=== PATIENT | female | born 1955 | race Caucasian/White ===

== ENCOUNTER 2018-06-10 13:41 | Inpatient (IN) | payer BC, OTHER ==
[2018-06-10] MEDS ORDERED: Ondansetron PF 4 MG/2 ML Vial ONE (14:12)
[2018-06-10] MEDS ORDERED: Morphine 4 MG/ML VIAL ONE ×3 (14:12→20:49)
[2018-06-10] MEDS ORDERED: Iopamidol 370 76% 100 ML VIAL ONE (14:36)
[2018-06-10 14:50] LABS: Hemoglobin 13.7 g/dL (12.0-16.0); Mean Corpuscular HGB CONC 33.1 g/dL (32.0-36.0); Mean Corpuscular Hemoglobin 27.8 pg (27.0-31.0); Mean Platelet Volume 10.1 fL (7.4-10.4); Platelet Count 196 thou/uL (130-400); RBC Distribution Width 12.4 % (11.5-14.5); Red Blood Cell (RBC) Count 4.92 mill/uL (4.20-5.40)
[2018-06-10 15:04] LABS: Band 39 % (5-11); Lymphocytes 1 % (21-51); MDiff Complete? YES; Metamyelocyte 7 % (0-0); Monocytes 4 % (0-10); Myelocyte 1 % (0-0); Neutrophil 48 % (42-75); Platelet Morphology Comment Appears Adequate; RBC Morphology Normal; Vacuoles SLIGHT
[2018-06-10 15:11] LABS: ALT (SGPT) 46 U/L (8-55); AST (SGOT) 34 U/L (5-34); Albumin 3.8 g/dL (3.4-4.8); Alkaline Phosphatase 64 U/L (40-150); Anion Gap 17 mmol/L (10-20); BUN (Urea Nitrogen) 18 mg/dL (9.8-20.1); Bilirubin, Total 1.3 mg/dL (0.2-1.2); CK (CPK) 25 U/L (29-168); Calc. Creatinine Clearance 0 mL/min (70-130); Calcium 9.4 mg/dL (7.8-10.44); Carbon Dioxide 22 mmol/L (23-31); Chloride 96 mmol/L (98-107); Estimated GFR-MDRD 48; Globulin 3.1 g/dL (2.4-3.5); Glucose 146 mg/dL (80-115); Lipase 7 U/L (8-78); Potassium 3.4 mmol/L (3.5-5.1); Protein, Total 6.9 g/dL (6.0-8.3); Sodium 132 mmol/L (136-145)
--- NOTE | 2018-06-10 16:43 | CT ---
CT ANGIOGRAM CHEST WITH IV CONTRAST AND 3D RECONSTRUCTIONS CT ANGIOGRAM ABDOMEN WITH IV CONTRAST AND 3D RECONSTRUCTIONS: Date: 06-10-18 History: Chest pain and pain extending to lower abdomen with pain radiating to the back. Patient repo rts low grade fever. History of strep throat. Comparison: None available. FINDINGS: Vascular calcifications are seen in the thoracic and abdominal aorta as well as the visualized iliac artery. However, the thoracic and abdominal aorta are normal in caliber without evidence of an aortic dissection. There is a normal arrangement of the great vessels at the aortic arch which are patent. The celiac and superior mesenteric arteries are patent. Vascular calcifications are seen in the origi n of the [place] which limits adequate evaluation. There is also atherosclerotic vascular calcifications at the origins of the single renal arteries bilaterally, likely resulting in mild narrowing of the or igin of each renal artery. There is a small left and tiny right pleural effusion with associated passive atelectasis. Calcified mediastinal and right hilar lymph nodes are present with calcified granuloma at the right lung base a nd multiple calcified granulomata seen in the liver. The heart is mildly enlarged. There is diminished attenuation of the liver suggesting diffuse fatty infiltrate. Post cholecystectom y changes are present. The pancreas, bilateral adrenal glands and left kidney demonstrate a normal CT appearance. There is a subcentimeter too small to characterize hypodense lesion right kidney. A small fat containing umbilical hernia is present. Scattered colonic diverticula are seen. IMPRESSION: 1. Atherosclerotic calcifications in the thoracic and abdominal aorta. The thoracic and abdominal aor ta are normal in caliber. 2. Small left and tiny right pleural effusions with associated passive atelectasis. 3. Cardiomegaly. 4. Fatty infiltration of the liver with evidence of hepatomegaly. The liver measures 23.6 cm in crani ocaudal dimensions. 5. Post cholecystectomy changes. 6. Colonic diverticulosis. 7. Fat containing umbilical hernia. POS: [facility]
[2018-06-10 16:53] LABS: INR-International Normal Ratio 1.1; PTT 27.5 SEC (22.9-36.1); Prothrombin Time 14.1 SEC (12.0-14.7)
[2018-06-10] MEDS ORDERED: Clindamycin/D5W 600 MG in Premix Bag 1 BAG IVPB SCH (18:06)
[2018-06-10] MEDS ORDERED: Potassium Chloride 20 MEQ TAB PO SCH (18:15)
[2018-06-10] MEDS ORDERED: [UNRECOGNIZED DRUG - OTHER] IVPB PRN (18:40)
[2018-06-10 19:07] LABS: Bilirubin Small (Negative); Blood, Urine Negative (Negative); Clarity CLEAR (Clear); Glucose, Urine (Dipstick) Negative (Negative); Leukocyte Trace (Negative); Nitrite Negative (Negative); Protein, Urine (Dipstick) Trace mg/dL (Neg-Trace); pH, Urine 5.5 (5.0-9.0)
[2018-06-10 19:09] LABS: Pathc Cast-AUWi Flag 1.16 (0-2.49); Specific Gravity, Urine Greater than 1.060 (1.002-1.036)
[2018-06-10 19:23] LABS: RBC/HPF 0-3 HPF (0-3)
[2018-06-10 19:24] LABS: Bacteria/HPF None Seen HPF (None Seen); Hyaline Casts/LPF NONE SEEN LPF (0-3 Hyaline); WBC/HPF 0-3 HPF (0-3)
[2018-06-10] MEDS ORDERED: Dexamethasone 4 mg/ml Vial SLOW IVP SCH (19:30)
[2018-06-10 20:43] LABS: Troponin I 0.011 ng/mL (< 0.028)
[2018-06-10] MEDS ORDERED: Meropenem 1 GM in Sodium Chloride 0.9% 100 ML IVPB SCH (22:00)
[2018-06-10] MEDS: Sodium Chloride 0.9% 1,000 ML IV SCH (22:16)
[2018-06-10] MEDS: Nystatin 500,000 UNITS/5 ML UDCUP SSW SCH (22:17)
[2018-06-10] MEDS: MEROPENEM 1 GM/50 ML 1 GM in Premix Bag 1 BAG IVPB SCH (22:19)
[2018-06-10] MEDS: traMADol HCl 50 MG TAB PO PRN (23:04)
[2018-06-10] MEDS: Clindamycin/D5W 600 MG in Premix Bag 1 BAG IVPB SCH (23:08)
--- NOTE | 2018-06-11 | HP ---
CHIEF COMPLAINT: Sore throat and left-sided chest pain. HISTORY OF PRESENT ILLNESS: The patient is a very pleasant 63-year-old female with past medical history of hypertension, hyperlipidemia, and borderline diabetic; who presented initially to the hospital with complaints of left-sided chest pain and left-sided abdominal pain and back pain. The patient stated that on , she started having scratchy throat. On Monday, she started having some difficulty swallowing. At this time, she went to the [facility] where she was put on some p.o. antibiotics and was discharged home. She then later on came back yesterday night for worsening difficulty swallowing and just not feeling well with a low-grade fever. At this time, she did have a CT neck, which I have the results for, indicated a nonspecific retropharyngeal edema/phlegmon, likely associated with underlying pharyngeal infection. No evidence of abscess formation and she did have some multiple shotty internal jugular chain lymph nodes visualized. The patient at this time also had a strep throat done which was positive. I do have the results for that. She had some leukocytosis, and she was discharged home, asked to continue the clindamycin. The patient returns to our ER today with worsening difficulty swallowing, also some left-sided chest pain, abdominal pain, and back pain. The patient denies any diarrhea or nausea or vomiting. The patient states that she normally has been drinking enough water, however, not been eating very much due to difficulty swallowing. PAST MEDICAL HISTORY: History of high cholesterol, hypertension. She has had high triglyceridemia and borderline diabetic. She also has sleep apnea and uses a CPAP machine. SOCIAL HISTORY: She denies any smoking history, secondhand smoking, alcohol use, drug use. She is a full code. Lives with her , who is at the bedside. SURGICAL HISTORY: She had a cholecystectomy, a tonsillectomy, and a right eye cataract surgery. REVIEW OF SYSTEMS: All negative except for the ones mentioned above in the HPI. FAMILY HISTORY: Mother had a stroke. Father of heart disease. Brother had an OH at the age of 50. ALLERGIES: THE PATIENT HAS ALLERGIES TO PENICILLIN. MEDICATIONS: She currently does not have a medication list. We will try and obtain her medication list. REVIEW OF SYSTEMS: All negative except for the ones mentioned above in HPI. PHYSICAL EXAMINATION: VITAL SIGNS: Temperature of 98.4. Sats are 92% on 2 L, respirations are 21, blood pressure 105/79, pulse of 105. GENERAL: She is awake, alert, and oriented x3. Appears ill. HEENT: Normocephalic, atraumatic. No lymphadenopathy noted in her cervical area. Her bilateral ear exam was normal. No pain on pushing her on the tragus or mastoid area. She did have significant erythema at the back of her throat with some mild oral thrush noted around her pharyngeal area. Visualization was very difficult given her very narrow space. CV: S1 and S2 present. No murmurs, rubs, or gallops. LUNGS: Clear upon auscultation. No rhonchi or wheezes noted. No stridor was noted. ABDOMEN: Bowel sounds are present x2. She does have pain upon palpation to her left upper quadrant and left lower quadrant. EXTREMITIES: No edema. Pedal pulses are present x2. NEUROVASCULAR: No focal deficits noted. SKIN: No cuts, lesions, or bruises noted. LABORATORY RESULTS: Are as of the following; she does have a leukocytosis of 13.0 with a bandemia of 39 and potassium of 3.4, sodium of 132, creatinine of 1.14, glucose of 146, bilirubin total of 1.3. Lipase was 77. CK was 25. BNP was 147. She did have troponins which were negative. She did have a CT to rule out a PE and dissection, which was essentially negative. It just indicated that she does have fatty infiltration of the liver and some hepatomegaly. She also has significant atherosclerotic calcification of the thoracic and the aortic abdominal aorta and mild cardiomegaly was also noted. She did have a urine, which did not indicate any UTI. ASSESSMENT AND PLAN: The patient is a very pleasant 63-year-old female, who presents to the hospital with complaints of chest pain and some dysphagia. 1. Possible retropharyngeal infection. I am not really sure why this lady has significant bandemia. On visual examination, she does have some erythema. Her strep test has been positive at [facility] and also she did have a CT neck with contrast which indicated nonspecific retropharyngeal edema/phlegmon, and she did have some lymph nodes that were visible. I will start her on some IV clindamycin and also meropenem given her penicillin allergy. I did speak with ENT given the fact that the patient is mildly hypoxic on 2 L. She does not have a history of smoking. She does have sleep apnea, and she has mild pleural effusion in her left lower lung area. I will start her on some steroids, also consult ENT in the morning. She has no stridor. Her lungs are clear. We will continue some humidified air and continue to monitor. 2. Leukocytosis with bandemia, most likely secondary to underlying infection. She has very elevated CRP of 24. We will continue antibiotics and steroids for now. 3. Mild acute kidney injury. Her creatinine at [place] [facility] [place] was essentially normal. We will start to hydrate her. 4. Sepsis. She meets sepsis criteria. We will continue to monitor. Continue IV hydration and continue the antibiotics. 5. Hypokalemia. We will replace her potassium. 6. She does have mild elevated BNP and also some cardiomegaly. We will get an echocardiogram. 7. Mild elevated bilirubin. She does have fatty liver. We will hold off on getting any further testing. The patient does have a history of high triglycerides and high cholesterol. 8. Deep venous thrombosis prophylaxis. We will put the patient on subcu heparin. Job ID: [id number]
[2018-06-11 00:55] LABS: Troponin I Less than 0.010 ng/mL (< 0.028)
[2018-06-11] MEDS: Sodium Chloride 0.9% 1,000 ML IV SCH (05:15)
[2018-06-11] MEDS: MEROPENEM 1 GM/50 ML 1 GM in Premix Bag 1 BAG IVPB SCH (05:16)
[2018-06-11 06:02] LABS: Band 30 % (5-11); Hemoglobin 13.6 g/dL (12.0-16.0); Lymphocytes 10 % (21-51); MDiff Complete? YES; Mean Corpuscular HGB CONC 32.3 g/dL (32.0-36.0); Mean Corpuscular Hemoglobin 28.1 pg (27.0-31.0); Mean Corpuscular Volume 87.1 fL (78.0-98.0); Mean Platelet Volume 10.1 fL (7.4-10.4); Metamyelocyte 2 % (0-0); Monocytes 4 % (0-10); Neutrophil 54 % (42-75); Platelet Count 209 thou/uL (130-400); Platelet Morphology Comment Appears Adequate; RBC Distribution Width 12.8 % (11.5-14.5); Red Blood Cell (RBC) Count 4.83 mill/uL (4.20-5.40)
[2018-06-11] MEDS: Clindamycin/D5W 600 MG in Premix Bag 1 BAG IVPB SCH ×2 (06:02→12:47)
[2018-06-11] MEDS: Dexamethasone 4 mg/ml Vial SLOW IVP SCH ×3 (06:03→21:29)
[2018-06-11 06:04] LABS: Anion Gap 21 mmol/L (10-20); BUN (Urea Nitrogen) 26 mg/dL (9.8-20.1); Calc. Creatinine Clearance 38 mL/min (70-130); Calcium 8.7 mg/dL (7.8-10.44); Carbon Dioxide 15 mmol/L (23-31); Chloride 102 mmol/L (98-107); Estimated GFR-MDRD 20; Glucose 146 mg/dL (80-115); Potassium 4.5 mmol/L (3.5-5.1); Sodium 133 mmol/L (136-145)
[2018-06-11] MEDS: Nystatin 500,000 UNITS/5 ML UDCUP SSW SCH ×4 (08:01→21:29)
[2018-06-11] MEDS: Morphine 4 MG/ML VIAL SLOW IVP PRN ×3 (08:01→21:38)
[2018-06-11 10:23] LABS: Actual Bicarbonate (HCO3a) 18.2 mEq/L (22-28); Analyzer IN Cardio OR; Base Excess (BEa) -10.6 mEq/L (-2.0 to +3.0); CO2 Tension 51.8 mmHg (35.0-45.0); Calcium, Ionized 1.08 mmol/L (1.12-1.30); Carboxyhemoglobin (COHb) 0.9 gm% (0.0-3.0); Hemoglobin (Hb) 14.2 g/dL (12.0-16.0); O2 Tension (PaO2) 74.8 mmHg (> 80.0); Potassium - ABG Lab 4.62 mmol/L (3.70-5.30)
--- NOTE | 2018-06-11 10:25 | RAD ---
CHEST 1 VIEW: HISTORY: Respiratory distress. COMPARISON: None. FINDINGS: Normal cardiac silhouette. Lung volumes are diminished, likely due to a poor inspiratory effort. Sm all bilateral effusions. Parenchymal changes in the left lung base obscure the left hemidiaphragm. No pneumothorax. IMPRESSION: Pleural and parenchymal changes in the left lung base. Continued surveillance is recommended. POS: [facility]
[2018-06-11 10:37] LABS: Puncture Site RRA; pH, Arterial 7.16 (7.35-7.45)
[2018-06-11] MEDS: Enoxaparin Sodium 40 MG/0.4 ML SYRINGE SC SCH (10:58)
[2018-06-11] MEDS ORDERED: Sodium Chloride 0.9% 1,000 ML IV SCH (12:15)
[2018-06-11] MEDS: Sodium Bicarbonate 70 MEQ in Sodium Chloride 0.45% 1,000 ML IV SCH ×2 (12:46→23:27)
--- NOTE | 2018-06-11 16:56 | CON ---
DATE OF CONSULTATION: 06/11/2018 REASON FOR CONSULTATION: Heart failure. HISTORY OF PRESENT ILLNESS: Ms. Benitez is a very pleasant 63-year-old white female, who comes to the hospital for left-sided chest pain. She was evaluated and was found to be septic. She has had this retropharyngeal infection recently without any significant abscess formation. She had a Streptococcus throat that was positive. She was admitted and placed on IV antibiotics, and blood cultures are positive for gram-negative rods. Because of the chest pain, Cardiology was consulted. Her echo was reviewed before seeing her and she has an EF of about 35% to 40% with dilated right-sided chambers, but it does not fit Emmanuel sign for PE, most likely just from a little bit of volume up on the right-sided chambers. She also had very small pleural effusions on chest x-ray, which correlate with an echocardiogram showing some pleural effusions as well. She had to be upgraded to BiPAP as she was working hard to breathe, probably from her acidosis. She is much more comfortable on a BiPAP and after some bicarbonate was given. PAST MEDICAL HISTORY: 1. Hyperlipidemia. 2. Hypertension. 3. Borderline diabetes. 4. Sleep apnea, using CPAP at night. SOCIAL HISTORY: No alcohol, tobacco, or drug use. PAST SURGICAL HISTORY: 1. Cholecystectomy. 2. Tonsillectomy. 3. Right eye cataract surgery. REVIEW OF SYSTEMS: A 12-point review of systems was done and was found to be negative unless stated in the history of present illness. FAMILY HISTORY: Mother with stroke. Father with heart disease. Brother with MD at age 50. OUTPATIENT MEDICATIONS: Include: 1. Metformin 1000 mg b.i.d. 2. Pantoprazole 40 mg a day. 3. Olmesartan/hydrochlorothiazide 20/12.5 day. 4. Singulair 10 mg at bedtime. 5. Flonase. 6. Trilipix 135 mg a day. 7. Clindamycin given recently. 8. Advil. 9. Azelastine nasal spray. 10. Atorvastatin 10 mg at bedtime. 11. Aspirin 81 a day. ALLERGIES: PENICILLIN. PHYSICAL EXAMINATION: VITAL SIGNS: Temperature 99.8 is the highest, currently 98.4; pulse 95; respiratory rate 18; saturating 98% on 50% FiO2 on a BiPAP; and blood pressure 96/64. GENERAL: Awake, alert, and oriented x3, in mild respiratory distress. HEENT: Normocephalic and atraumatic. NECK: Supple. LUNGS: Reduced breath sounds at the bilateral bases. CARDIOVASCULAR: S1 and S2. No S3 or S4. Heart rate in the upper 90s. ABDOMEN: Soft. Positive bowel sounds. EXTREMITIES: No edema. SKIN: Warm and dry. LABORATORY DATA: Reviewed. CBC with a white count of 13, down to 7.0; hemoglobin of 13.6; hematocrit 42; platelet count of 209. Coags were unremarkable. ABG was reviewed, pH was 7.1 with CO2 of 51. Chemistries, creatinine has gone from 1.1 to 2.4. Troponin was negative x2. CRP was 24. BNP was 147. UA; small bilirubin, 2.0 urobilinogen, trace leukocyte esterase, 4 to 6 squamous epithelial cells. IMAGING STUDIES: Chest x-ray was reviewed. CT dissection protocol was reviewed. ASSESSMENT: 1. Acute respiratory insufficiency, likely related to metabolic acidosis. 2. Metabolic acidosis. 3. Sepsis. 4. Gram-negative lashell bacteremia. 5. New onset LV dysfunction. EF at about 40%. PLAN: 1. I agree she looks to be volume down and needs IV fluids, judicious use of fluid secondary to reduced LV function. We discussed the case with Dr. Mata and we will plan on starting dobutamine to try to help her heart, give a little extra cardiac output. Hopefully, she will start urinating as she is currently not putting much out. 2. Continue supportive care for now. 3. The patient is severely ill. 4. We will follow. Job ID: [id number]
[2018-06-11] MEDS: cefTRIAXone\\ROCEPHIN 2 GM in Sodium Chloride 0.9% 100 ML IVPB SCH (17:26)
[2018-06-11] MEDS: DOBUTamine 500 mg/250 ml 250 ML IVPB SCH (17:27)
--- NOTE | 2018-06-11 17:39 | CON ---
DATE OF CONSULTATION: 06/11/2018 TIME SPENT: 45 minutes of critical care time. CONSULTING PHYSICIAN: Dr. Haines. REASON FOR CONSULTATION: Sepsis. HISTORY OF PRESENT ILLNESS: The patient is a 63-year-old female, who was admitted to the hospital on 06/10/2018 by the Hospitalist Service with a 3 to 4-day history of throat pain, which is evolved into left-sided chest pain, left side abdominal pain, and back pain. She says she has been in the ER 3 different times with neck type pain and was told she had Streptococcus throat and was taking some antibiotics for that. Despite that, symptoms got worse and she presented to the ER again when she began to have chest pain. She was transferred to the ICU today because of development of metabolic acidosis along with renal insufficiency. PAST MEDICAL HISTORY: Hypertension, hyperlipidemia, RY. PAST SURGICAL HISTORY: She has had a tonsillectomy, cholecystectomy, right eye surgery, and right foot surgery. SOCIAL HISTORY: Does not smoke. Does not consume alcohol. She is retired from office work. FAMILY MEDICAL HISTORY: Remarkable for stroke, heart disease, myocardial infarction. ALLERGIES: SHE HAS ANAPHYLACTIC TYPE REACTION OF THROAT TO PENICILLIN AND BACTRIM. REVIEW OF SYSTEMS: A 12-point review of systems is otherwise negative. MEDICATIONS: Prior to admission: 1. Metformin. 2. Pantoprazole. 3. Olmesartan/hydrochlorothiazide. 4. Singulair. 5. Flonase. 6. Trilipix. 7. Fenofibrate. 8. Clindamycin. 9. Atorvastatin. 10. Aspirin. PHYSICAL EXAMINATION: VITAL SIGNS: Temperature 97.7, pulse 104, respiratory rate 24, O2 saturation 100% on 2 L, and blood pressure 149/67. GENERAL: This patient appears acutely ill. She is able to give history without limitation. HEENT: Pupils are reactive. Sclerae are anicteric. Oropharynx, she has an enlarged tongue with narrow hypopharynx. NECK: Without an adenopathy or JVD. She is slightly tender with some submandibular lymphadenopathy. CARDIOVASCULAR: S1 and S2, slightly tachycardic. No murmur. LUNGS: She has slightly diminished breath sounds at left base compared to right. She has some tenderness along her T-spine at T8-T10 region. ABDOMEN: Soft, nontender, nondistended. EXTREMITIES: No clubbing, cyanosis, or edema. LABORATORY DATA: Sodium 133, potassium 4.5, chloride 102, CO2 of 15, BUN 26, creatinine 2.4, glucose 146. C-reactive protein 24. White blood cell count 7.0, hematocrit 42, and platelet count 209. INR 1.1, PTT 27.5. IMAGING STUDIES: I have reviewed a CT that was done for dissection purposes yesterday. She has small pleural effusion on the left, which possibly could be evolving. It does not look much worse on today's x-ray, but probably bears watching closely. Cultures are growing out gram-negative rods, 2/2. ASSESSMENT: 1. Gram-negative septicemia - source pharyngitis versus possible early left empyema versus diskitis. 2. Metabolic acidosis, renal insufficiency. PLAN: 1. The patient needs to be hydrated. 2. Continue meropenem. I would consider adding a fluoroquinolone. ID has been consulted, so I will defer to them on that. 3. IV fluid resuscitation. 4. Add bicarbonate drip. 5. Follow tomorrow with a serial x-ray. If the effusion begins to increase, she may need drainage, but right now I think the amount is too minimal. Thank you for the referral. We will follow. Job ID: [id number]
[2018-06-11] MEDS ORDERED: Meropenem 500 MG in Sodium Chloride 0.9% 100 ML IVPB SCH (18:00)
[2018-06-11] MEDS ORDERED: Fluconazole 100 MG TAB PO SCH (18:09)
--- NOTE | 2018-06-11 19:01 | CON ---
DATE OF CONSULTATION: REASON FOR CONSULTATION: Ear, nose, and throat consult for retropharyngeal edema found on CT scan. The patient presented to the emergency room with increasing sickness. She had been diagnosed with strep earlier at [facility]. At that time, they did a CT scan, also noted the retropharyngeal edema was present. She continued to worsen and presented at [facility] Emergency Room where she has been admitted. She started on the main floor, but has since been moved to the CCU. SUBJECTIVE: The patient is very pleasant. She is resting comfortably. Her vital signs are stable at this time, and she does not report any difficulty breathing. She also states that she is still having a little bit of pain with swallowing, but is able to swallow all secretions. OBJECTIVE: The patient is a well-developed, well-nourished female. She is in good spirits at this time. She is able to swallow without difficulty, though mild pain that she reports. Visual inspection of the pharynx revealed some mild redness, but no swelling to either side. The patient's nose was sprayed with combo spray and a Flex scope was used to explore the entire nasopharyngeal region. Thick mucus was noted throughout this entire area all the way down to the epiglottis. However, there was no evidence of epiglottal swelling or edema. Vocal cords move normally with phonation. Airway opens normal with inspiration. There does not appear to be any masses present throughout the entire airway. ASSESSMENT: Retropharyngeal edema, mostly likely secondary to throat infection. PLAN: Continue with IV antibiotics and steroids as recommended by hospitalist. Consult ENT as needed. Also recommend a followup with ENT upon discharge. Job ID: [id number]
--- NOTE | 2018-06-11 20:53 | PDOC.PN ---
- Subjective Encounter Start Date: 06/11/18 Encounter Start Time: 09:00 Subjective: pt up in bed appears ill, very hypoxic - Objective Resuscitation Status - Order Detail: 06/10/18 17:01 Resuscitation Status Routine Resuscitation Status: FULL: Full Resuscitation Vital Signs & Weight: Vital Signs (12 hours) Temp Pulse Resp Pulse Ox 06/11/18 18:45 98 97 06/11/18 16:00 98.2 F 06/11/18 12:00 98.4 F 06/11/18 11:59 94 L 06/11/18 11:25 106 H 06/11/18 10:48 104 H 24 H 100 Weight Admit Weight 229 lb 1.6 oz Weight 229 lb 1.6 oz Most Recent Monitor Data Heart Rate from ECG 100 NIBP 130/62 NIBP BP-Mean 84 Respiration from ECG 34 SpO2 99 I&O: 06/10/18 06/11/18 06/12/18 06:59 06:59 06:59 Intake Total 1250 2026 Output Total 200 115 Balance 1050 1911 Result Diagrams: 06/11/18 05:19 06/11/18 05:19 Additional Labs: Accuchecks 06/11/18 04:58 POC Glucose 134 H Phys Exam - Physical Examination Neck: no nodes, no JVD, supple, full ROM Respiratory: wheezing present Cardiovascular: RRR, no significant murmur, no rub, gallop, irregular Gastrointestinal: soft, non-tender, no distention, positive bowel sounds pain on palpation of lower back Dx/Plan (1) Pharyngeal edema Code(s): J39.2 - OTHER DISEASES OF PHARYNX Status: Acute (2) Sepsis Code(s): A41.9 - SEPSIS, UNSPECIFIED ORGANISM Status: Acute (3) Acute respiratory failure with hypoxia Code(s): J96.01 - ACUTE RESPIRATORY FAILURE WITH HYPOXIA Status: Acute (4) SUDEEP (acute kidney injury) Code(s): N17.9 - ACUTE KIDNEY FAILURE, UNSPECIFIED Status: Acute (5) Metabolic acidosis Code(s): E87.2 - ACIDOSIS Status: Acute (6) Bacteremia Code(s): R78.81 - BACTEREMIA Status: Acute - Plan will transfer to icu, spoke with pulmonary -: will consult id due to bactremia -: pt has back pain concern for diskitis -: echo pending, elevated creatinine possible due to -: contrast related. pt had ct neck with contrast and CT chest, will monitor * . Review of Systems - Review of Systems Respiratory: Shortness of Breath Cardiovascular: negative: chest pain, palpitations, orthopnea, paroxysmal nocturnal dyspnea, edema, light headedness, other Gastrointestinal: negative: Nausea, Vomiting, Abdominal Pain, Diarrhea, Constipation, Melena, Hematochezia, Other Genitourinary: negative: Dysuria, Frequency, Incontinence, Hematuria, Retention , Other - Medications/Allergies Allergies/Adverse Reactions: Allergies Allergy/AdvReac Type Severity Reaction Status Date / Time Penicillins Allergy Verified 06/10/18 21:44 sulfamethoxazole Allergy Verified 06/10/18 21:44 [From Bactrim] trimethoprim [From Bactrim] Allergy Verified 06/10/18 21:44 Medications: Current Medications Acetaminophen (Tylenol) 650 mg PO Q4H PRN PRN Reason: Headache/Fever/Mild Pain (1-3) Dexamethasone (Decadron) 8 mg SLOW IVP Q8HR [facility] Last Admin: 06/11/18 13:02 Dose: 8 mg Enoxaparin Sodium (Lovenox) 40 mg SC 0900 [facility] Last Admin: 06/11/18 10:58 Dose: Not Given Famotidine (Pepcid) 20 mg SLOW IVP DAILY [facility] Sodium Bicarbonate 70 meq/ (Sodium Chloride) 1,070 mls @ 100 mls/hr IV .[id number] [facility] Last Admin: 06/11/18 12:46 Dose: 1,070 mls Dobutamine HCl/Dextrose (Dobutamine 500 Mg/250 Ml) 250 mls @ 7.794 mls/hr IVPB INF [facility]; Protocol Last Admin: 06/11/18 17:27 Dose: 250 mls Ceftriaxone Sodium 2 gm/ (Sodium Chloride) 100 mls @ 200 mls/hr IVPB Q24HR [facility] Last Admin: 06/11/18 17:26 Dose: 100 mls Miscellaneous Medication (Pharmacy To Dose) 1 each IVPB PRN PRN PRN Reason: Pharmacy to dose Morphine Sulfate (Morphine) 2 mg SLOW IVP Q4H PRN PRN Reason: Mild-Moderate Pain (1-5) Last Admin: 06/11/18 17:45 Dose: 2 mg Nystatin (Mycostatin) 500,000 units SSW QID [facility] Last Admin: 06/11/18 17:27 Dose: 500,000 units Sodium Chloride (Flush - Normal Saline) 10 ml IVF Q12HR [facility] Last Admin: 06/11/18 08:01 Dose: 10 ml Sodium Chloride (Flush - Normal Saline) 10 ml IVF PRN PRN PRN Reason: Saline Flush Tramadol HCl (Ultram) 50 mg PO Q6H PRN PRN Reason: Moderate Pain (4-6) Last Admin: 06/10/18 23:04 Dose: 50 mg
[2018-06-12] MEDS: Morphine 4 MG/ML VIAL SLOW IVP PRN ×2 (01:43→06:30)
[2018-06-12] MEDS: Dexamethasone 4 mg/ml Vial SLOW IVP SCH ×3 (06:02→21:09)
[2018-06-12 06:40] LABS: Anion Gap 19 mmol/L (10-20); BUN (Urea Nitrogen) 43 mg/dL (9.8-20.1); Calc. Creatinine Clearance 33 mL/min (70-130); Carbon Dioxide 21 mmol/L (23-31); Chloride 100 mmol/L (98-107); Estimated GFR-MDRD 17; Glucose 158 mg/dL (80-115); Potassium 4.5 mmol/L (3.5-5.1); Sodium 135 mmol/L (136-145)
[2018-06-12 06:43] LABS: Band 11 % (5-11); Hemoglobin 12.2 g/dL (12.0-16.0); Lymphocytes 6 % (21-51); MDiff Complete? YES; Mean Corpuscular HGB CONC 32.3 g/dL (32.0-36.0); Mean Corpuscular Hemoglobin 27.9 pg (27.0-31.0); Mean Corpuscular Volume 86.4 fL (78.0-98.0); Mean Platelet Volume 10.7 fL (7.4-10.4); Metamyelocyte 3 % (0-0); Monocytes 5 % (0-10); Myelocyte 1 % (0-0); Neutrophil 73 % (42-75); Platelet Count 176 thou/uL (130-400); Platelet Morphology Comment Appears Adequate; RBC Morphology Normal; Reactive Lymphocytes 1 % (0-10); Red Blood Cell (RBC) Count 4.37 mill/uL (4.20-5.40); White Blood Cell (WBC) Count 17.4 thou/uL (4.8-10.8)
[2018-06-12] MEDS: Sodium Bicarbonate 70 MEQ in Sodium Chloride 0.45% 1,000 ML IV SCH (08:05)
[2018-06-12] MEDS: Enoxaparin Sodium 40 MG/0.4 ML SYRINGE SC SCH (08:06)
[2018-06-12] MEDS: Famotidine/PF 20 mg/2ml Vial SLOW IVP SCH (08:07)
[2018-06-12] MEDS: Nystatin 500,000 UNITS/5 ML UDCUP SSW SCH ×4 (08:10→21:09)
--- NOTE | 2018-06-12 10:49 | PRG ---
DATE OF SERVICE: 06/12/2018 SUBJECTIVE: A 63-year-old morbidly obese female, presented with sepsis syndrome, probably H. flu. This morning, she is better, but she is still having difficulty breathing. She is on a noninvasive ventilation BiPAP. OBJECTIVE: VITAL SIGNS: Pulse is 80, sats are 93%, respirations 18, and blood pressure 130/80. CHEST: Decreased breath sounds, left base. CARDIAC: Normal S1, S2. No gallops. ABDOMEN: Soft. No masses. LABORATORY DATA: White count 17,000, H and H 12 and 37, platelet count 176. Creatinine is 2.88. EF is decreased to 45%. X-ray shows slightly worse left pleural effusion, not enough to undergo thoracentesis. IMPRESSION: 1. Left pleural effusion, pneumonia. 2. Cardiomyopathy. 3. Renal failure. 4. Pharyngitis. PLAN: Antibiotics were adjusted as per Infectious Disease. She was started on Dobutrex as per Cardiology. Pulmonary will continue to follow. We will avoid thoracentesis unless she is more symptomatic. BiPAP as tolerated. Job ID: [id number]
--- NOTE | 2018-06-12 10:51 | RAD ---
PORTABLE AP CHEST XRAY: DATE: 06/12/2018. HISTORY: On ventilator, followup evaluation. FINDINGS: This exam is obtained in a shallow depth of inspiration which accentuates the bronchovascular marking s and the cardiac silhouette. However, there is a tiny right as well as a small to moderate-sized le ft pleural effusion with pleural fluid layering posteriorly on the left and the left pleural effusion does appear increased compared to the prior exam, some of which could be related to depth of inspira tion. Pulmonary vasculature does appear mildly increased as well. No other interval change. IMPRESSION: 1. Tiny right and small to moderate-sized left pleural effusions. Pleural fluid on the left does ap pear mildly increased from the prior exam. 2. Mild pulmonary vascular congestion. POS: [facility]
--- NOTE | 2018-06-12 11:09 | PDOC.CTH ---
Cardiology Progress Note - Subjective No new issues. Still on BiPAP. - Objective Vital Signs Temp Pulse Pulse Ox 06/12/18 08:00 97.8 F 98 06/12/18 07:31 110 H 97 06/12/18 04:00 98.4 F 06/12/18 00:55 93 06/12/18 00:00 98.7 F Admit Weight 229 lb 1.6 oz Weight 229 lb 1.6 oz 06/11/18 06/12/18 06/13/18 06:59 06:59 06:59 Intake Total 1250 3393.8 Output Total 200 285 37 Balance 1050 3108.8 -37 - Physical Examination General/Neuro: alert & oriented x3, NAD Neck: no JVD present Lungs: CTA, unlabored respirations Heart: RRR Abdomen: NT/ND Extremities: + edema B (trace) - Telemetry Telemetry Rhythm: NSR - Labs Result Diagrams: 06/12/18 Unknown 06/12/18 Unknown Troponin/CKMB Troponin I Less than 0.010 ng/mL (< 0.028) 06/11/18 00:22 - Assessment/Plan 1. Haemophillus sp. bacteremia. 2. New onset mild LV dysfunction. 3. Sepsis. 4. Pleural effusion. 5. Mild pulmonary edema. 6. SUDEEP on CKD. May be cardiorenal. Low urine output and fluid up. PLAN: - Left sided pleural effusion getting worse on CXR. - Will hold IV fluids and will give one dose of IV lasix. - Continue dobutrex for now. - IV abx per primary team. - 30 minutes critical care.
[2018-06-12] MEDS ORDERED: Furosemide 40 MG/4 ML VIAL SLOW IVP SCH (11:15)
--- NOTE | 2018-06-12 11:18 | PDOC.PN ---
- Subjective Encounter Start Date: 06/12/18 Encounter Start Time: 11:16 Patient seen and examined, no new issues or complaints, at bedsid,e all questions answered. - Objective Resuscitation Status - Order Detail: 06/10/18 17:01 Resuscitation Status Routine Resuscitation Status: FULL: Full Resuscitation Vital Signs & Weight: Vital Signs (12 hours) Temp Pulse Pulse Ox 06/12/18 08:00 97.8 F 98 06/12/18 07:31 110 H 97 06/12/18 04:00 98.4 F 06/12/18 00:55 93 06/12/18 00:00 98.7 F Weight Admit Weight 229 lb 1.6 oz Weight 229 lb 1.6 oz Most Recent Monitor Data Heart Rate from ECG 95 NIBP 111/80 NIBP BP-Mean 90 Respiration from ECG 29 SpO2 96 I&O: 06/11/18 06/12/18 06/13/18 06:59 06:59 06:59 Intake Total 1250 3393.8 Output Total 200 285 37 Balance 1050 3108.8 -37 Result Diagrams: 06/12/18 Unknown 06/12/18 Unknown Phys Exam - Physical Examination Constitutional: NAD obese HEENT: PERRLA, moist MMs, sclera anicteric Neck: no nodes, no JVD, supple Respiratory: no wheezing, no rales, no rhonchi Cardiovascular: RRR, no significant murmur, no rub Gastrointestinal: soft, non-tender, no distention, positive bowel sounds Musculoskeletal: pulses present, edema present (1+ pitting edema) Dx/Plan (1) SUDEEP (acute kidney injury) Code(s): N17.9 - ACUTE KIDNEY FAILURE, UNSPECIFIED Status: Acute (2) Acute respiratory failure with hypoxia Code(s): J96.01 - ACUTE RESPIRATORY FAILURE WITH HYPOXIA Status: Acute (3) Bacteremia Code(s): R78.81 - BACTEREMIA Status: Acute (4) Metabolic acidosis Code(s): E87.2 - ACIDOSIS Status: Acute (5) Pharyngeal edema Code(s): J39.2 - OTHER DISEASES OF PHARYNX Status: Acute (6) Sepsis Code(s): A41.9 - SEPSIS, UNSPECIFIED ORGANISM Status: Acute - Plan * consult renal, likely ATN from contrast + hemodynamics + sepsis * cont bicarb given acidosis, Cr rising so will monitor carefully as if urine out put goes down will need to DC IVFs * will give midodrine 5mg po BID for now if SBP < 120mmHg * continue current plan of care otherwise with no changes * appreciate subspecialists input * case and plan d/w patient and at length, they understand and agree with this plan.
[2018-06-12] MEDS ORDERED: Dexamethasone 4 mg/ml Vial ONE (13:03)
[2018-06-12] MEDS: Polyethylene Glycol 3350 17 GM Packet PO PRN (13:15)
--- NOTE | 2018-06-12 13:33 | CON ---
DATE OF CONSULTATION: 06/11/2018 REASON FOR CONSULTATION: Sore throat and bacteremia. HISTORY OF PRESENT ILLNESS: A 63-year-old with history of hypertension and type 2 diabetes, who developed severe sore throat about 5 or 6 days before admission. The patient was treated with oral clindamycin after positive strep test in the outpatient setting, which did not help and she developed worsening swallowing and then developed pain in the anterior chest area and back area as well, had a CT of neck which showed retropharyngeal edema/phlegmon. She had some internal jugular chain lymph nodes visualized as well. No headaches. No visual symptoms. No nasal symptoms or ear pain. Some cough. The patient has had dyspnea, which has worsened in the last 24 hours. PAST MEDICAL HISTORY: Hyperlipidemia, hypertension, type 2 diabetes, and sleep apnea. SOCIAL HISTORY: Never smoker. . ALLERGIES: PENICILLIN. FAMILY HISTORY: CVA and heart disease. CURRENT MEDICATIONS: 1. Tylenol. 2. Clindamycin. 3. Dobutamine. 5. Enoxaparin. 6. Meropenem. 7. Tramadol. 8. Vancomycin. PHYSICAL EXAMINATION: VITAL SIGNS: T-max 99.8, blood pressure 99/75, pulse 92, respirations 24, and O2 saturation 98%. She is apprehensive, she has a positive pressure mask ventilation in place, but she follows commands. SKIN: Not remarkable. She has a peripheral IV access and a Faust catheter inserted. HEENT: No lymphadenopathy. Ocular movements conjugate. Nasal passages patent. Oral cavity shows erythema in the posterior oropharynx. NECK: Tender to palpation in the lateral segments, right and left side. LUNGS: Clear breath sounds. HEART: S1, S2. Regular rate without murmurs. There is some erythema in the posterior neck area at the midline, but not anteriorly in the chest. ABDOMEN: Soft, nondistended, nontender. No ascites. No bladder distention. No genital abnormalities. MUSCULOSKELETAL: No joint inflammatory activity. Pulses are 2+ in dorsalis pedis. Moves extremities equally. Cognitive function appears to be intact. LABORATORY DATA: White cell count is down from 13 to 7, hemoglobin 13, platelets 209, 30% bands, 54% neutrophils, 10% lymphocytes, 2% metamyelocytes. Her ABG, pH 7.16, pCO2 of 51, PO2 of 74. Sodium 133, creatinine 2.46, CRP 24, AST 34, ALT 46 , bilirubin 1.3, albumin 3.8, globulin 3.1, lipase wnl, microbiology with gram-negative rods. The organism appears to be consistent with Haemophilus species. IMAGING STUDIES: Include a CT dissection protocol, which was not remarkable plus the findings in the CT of neck done which showed retropharyngeal inflammatory changes. ASSESSMENT: 1. Type 2 diabetes. 2. Hypertension. 3. Sore throat with evidence of pharyngitis. 4. Likely epiglottitis. 5. Bacteremia likely due to Haemophilus species DISCUSSION: The patient has an aggressive infection caused by Haemophilus species, typical colonization of upper airways. She probably has epiglottitis. She may have extension into the soft tissues of the chest and back area, possibility of diskitis or osteomyelitis is not ruled out at this point, and she may need an MRI of cervical and thoracic spine. She does not appear to have mediastinitis at this point, but may have to revisit this possibility. Continue meropenem or switch to Rocephin. Discontinue the other antimicrobials for the skin. Patients with epiglottitis are at risk for respiratory compromise and sometimes they require ENT evaluation and tracheostomy. Job ID: [id number] [facility]
--- NOTE | 2018-06-12 13:42 | CON ---
DATE OF CONSULTATION: REASON FOR CONSULTATION: Elevated creatinine. HISTORY OF PRESENT ILLNESS: This is a very pleasant 63-year-old female who has had a baseline creatinine of 1.6, which increased to 2.6 today. The patient was admitted for heart failure. The patient had imaging with contrast. The patient denies headache, numbness, tingling, or weakness. Denies any nausea, vomiting, or chest pain. PAST MEDICAL HISTORY: Hypertension, hyperlipidemia, sleep apnea. PAST SURGICAL HISTORY: History of cholecystectomy and tonsillectomy. SOCIAL HISTORY: No tobacco, alcohol, or drug use. FAMILY HISTORY: Negative for ESRD. REVIEW OF SYSTEMS: Fifteen-point review of system was performed, negative except for positives noted above. REVIEW OF SYSTEMS: GENERAL: HEAD: NECK: No swelling or lumps. NOSE: No epistaxis or discharge. EYES: No diplopia or pain. RESPIRATORY: CARDIOVASCULAR: GASTROINTESTINAL: /YARDAGE [employer]OL OPERATOR: MUSCULOSKELETAL: No joint pain. NEUROPSYCHIATIC SYSTEMS: No suicidal ideation. No ideation. SKIN: Denies any rash or ulcer. CONSTITUTIONAL: No fever or chills. ASSESSMENT AND PLAN: 1. Acute kidney injury with chronic kidney disease most likely because of contrast and possibly cardiorenal syndrome. No indication for dialysis. Continue gentle hydration. We will order Lasix. 2. Anemia, stable. 3. Hypertension, stable. 4. Medications based on GFR are appropriate. We will follow the renal function closely. Job ID: [id number]
[2018-06-12] MEDS ORDERED: Vancomycin HCl 1 GM in Premix Bag 1 BAG IVPB SCH (14:00)
[2018-06-12] MEDS: cefTRIAXone\\ROCEPHIN 2 GM in Sodium Chloride 0.9% 100 ML IVPB SCH (17:02)
[2018-06-12] MEDS: DOBUTamine 500 mg/250 ml 250 ML IVPB SCH (17:03)
[2018-06-12] MEDS ORDERED: guaiFENesin/DM ER PO SCH (18:00)
[2018-06-12] MEDS: Benzonatate 100 MG CAP PO SCH (19:32)
[2018-06-12] MEDS: traMADol HCl 50 MG TAB PO PRN (19:37)
[2018-06-12] MEDS: Fluticasone Propionate Nasal Spray 16 gm Bottle NASAL SCH (21:07)
[2018-06-12] MEDS: Midodrine HCl 5 MG TAB PO SCH (21:09)
--- NOTE | 2018-06-12 21:15 | CON ---
DATE OF CONSULTATION: 06/12/2018 REASON FOR CONSULTATION: Acute pharyngitis and dysphagia. CONSULTING PHYSICIAN: Brenda Haines MD HISTORY OF PRESENT ILLNESS: Ms. Benitez is a 63-year-old female with a 5-day history of progressively worsening sore throat and dysphagia, was initially evaluated in [place] [facility] and treated with oral antibiotics, but seemed to worsen over the next 24 hours, she started having increased dysphagia, was reevaluated in the [place] ER and had a CT scan done as well as strep screen; the strep screen came out positive, and a CT scan showed some edema of the pharynx, but no localizing abscess was noted. She was continued on the medications and sent home and continued to worsen and presented to the ER here at [facility] with the worsening sore throat, but also was noted to be hypoxemic and found to have an effusion on her chest x-ray. She was admitted to the hospital because of worsening status despite being on oral antibiotics and was placed on IV antibiotics and steroids. I was asked to evaluate the pharynx to see if anything further needed to be done. She has not had any hoarseness, no prior history of any tonsillitis or sore throat. She is otherwise in fairly good health. No other complaints. Please see her admission history and physical for further details of her past medical history and review of systems, which were reviewed on this date. PHYSICAL EXAMINATION: GENERAL: Well-developed, well-nourished white female, in moderate distress. HEENT: Head is normocephalic, atraumatic. Eyes; pupils are equal, round, and reactive to light. Extraocular movements are intact. Ears, tympanic membranes are intact and clear without any fluid or infection. Nose shows a deviated nasal septum caudally off to the left and more posteriorly after the right, there is some crusting and little bit of bleeding due to dryness with no evidence of any other problems noted. Oral cavity, oropharynx shows no evidence of any trismus. Palate and tongue show normal mobility. Teeth are in good repair. No mucosal lesions were noted. Pharynx shows no evidence of erythema or exudate or postnasal drainage. No swelling was noted. NECK: Shows no tenderness. No lymphadenopathy. No evidence of any masses or inflammation or infection. LUNGS: Show diffuse wheezing. HEART: Rate and rhythm regular without murmur or gallop. IMPRESSION: Acute pharyngitis, seems to be resolving with antibiotics. Her bigger problem appears to pneumonia which also seems to be improving. RECOMMENDATIONS: At this point in time, she is to continue present treatment for pharyngitis as it seems to be working. She seems to be swallowing better, and I do not see any indication of abscess or infection at this time. Plan is to follow up with me on an as-needed basis. No further intervention is necessary. Job ID: [id number]
[2018-06-12] MEDS ORDERED: guaiFENesin 200 MG TAB PO SCH (22:00)
[2018-06-13] MEDS ORDERED: guaiFENesin 200 MG TAB PO SCH
[2018-06-13] MEDS: traMADol HCl 50 MG TAB PO PRN (03:33)
[2018-06-13 04:27] LABS: Anion Gap 19 mmol/L (10-20); BUN (Urea Nitrogen) 59 mg/dL (9.8-20.1); Calc. Creatinine Clearance 31 mL/min (70-130); Calcium 8.6 mg/dL (7.8-10.44); Carbon Dioxide 20 mmol/L (23-31); Chloride 96 mmol/L (98-107); Estimated GFR-MDRD 16; Glucose 175 mg/dL (80-115); Potassium 3.8 mmol/L (3.5-5.1); Sodium 131 mmol/L (136-145)
[2018-06-13 05:05] LABS: Band 36 % (5-11); Hemoglobin 12.4 g/dL (12.0-16.0); Lymphocytes 8 % (21-51); MDiff Complete? YES; Mean Corpuscular HGB CONC 33.2 g/dL (32.0-36.0); Mean Corpuscular Hemoglobin 27.9 pg (27.0-31.0); Mean Corpuscular Volume 83.8 fL (78.0-98.0); Mean Platelet Volume 10.6 fL (7.4-10.4); Metamyelocyte 3 % (0-0); Monocytes 6 % (0-10); Myelocyte 1 % (0-0); Neutrophil 45 % (42-75); Nucleated RBC 1 % (0); Platelet Count 166 thou/uL (130-400); Platelet Morphology Comment Appears Adequate; RBC Distribution Width 12.9 % (11.5-14.5); RBC Morphology Normal; Red Blood Cell (RBC) Count 4.46 mill/uL (4.20-5.40); White Blood Cell (WBC) Count 26.7 thou/uL (4.8-10.8)
[2018-06-13] MEDS: Dexamethasone 4 mg/ml Vial SLOW IVP SCH (06:07)
[2018-06-13] MEDS: Benzonatate 100 MG CAP PO SCH ×2 (06:07→17:51)
[2018-06-13] MEDS: guaiFENesin/DM ER PO SCH ×2 (06:07→18:02)
--- NOTE | 2018-06-13 08:12 | PRG ---
DATE OF SERVICE: 06/13/2018 SUBJECTIVE: The patient continues to intermittently use BiPAP. She is also on a dobutamine drip. OBJECTIVE: VITAL SIGNS: Her temperature is 97.9 with no fever overnight, pulse is 87, blood pressure 138/96. She is currently on 2.5 mcg/kg/min of dobutamine. Total intake for the last 24 hours has been 2243, output 605. HEENT: Unremarkable. NECK: No JVD. LUNGS: She has diminished breath sounds at left base compared to right. On ultrasound, she has a fairly significant effusion on the left. CARDIAC: S1 and S2. Slightly tachycardic. ABDOMEN: Soft, nontender. EXTREMITIES: No edema. LABORATORY DATA: Sodium 131, potassium 3.8, chloride 96, CO2 of 20, BUN 59, creatinine 3.0, glucose 175. White blood cell count 26.7, hematocrit 37.4, and platelet count 166. Chest x-ray shows left effusion. ASSESSMENT: 1. Acute hypoxic respiratory failure, likely secondary to left lower lobe pneumonia. 2. Left pleural effusion. 3. Acute renal insufficiency. 4. Cardiomyopathy with depressed ejection fraction. PLAN: 1. The patient's Decadron will be stopped and she will be placed on lower dose of Solu-Medrol. 2. She needs a diagnostic and therapeutic left thoracentesis. Discussed risks with the patient. She agreed to proceed. 3. Continue antibiotics. Dr. Marmolejo is following with us. 4. Continue Nephrology, Cardiology support. CRITICAL CARE TIME: 35 minutes. Job ID: [id number]
[2018-06-13] MEDS ORDERED: Lidocaine 1% (PF) 30 ML VIAL ONE (08:47)
--- NOTE | 2018-06-13 09:08 | RAD ---
AP VIEW CHEST: Date: 06/13/18 HISTORY: Ventilator dependent patient. 63-year-old female. FINDINGS: AP view of chest obtained. Comparison made to previous exam from 06/12/18. AP view of chest demonstrates EKG leads seen over the chest. Left-sided pleural effusion is seen. Pul monary vascular congestion is seen. No evidence of pneumonia or pneumothorax seen. IMPRESSION: Left-sided pleural effusion and pulmonary vascular congestion. POS: [facility]
[2018-06-13] MEDS: Famotidine/PF 20 mg/2ml Vial SLOW IVP SCH (09:28)
[2018-06-13] MEDS: Enoxaparin Sodium 40 MG/0.4 ML SYRINGE SC SCH (09:28)
[2018-06-13] MEDS: Fluticasone Propionate Nasal Spray 16 gm Bottle NASAL SCH ×2 (09:29→21:25)
[2018-06-13] MEDS: Midodrine HCl 5 MG TAB PO SCH ×2 (09:29→21:25)
[2018-06-13 09:31] LABS: Fluid, Triglycerides 126 mg/dL (Not Available); Pleural Fluid, Amylase Less than 30 U/L (Not Available); Pleural Fluid, Glucose 22 mg/dL; Pleural Fluid, Protein 3.9 g/dL
[2018-06-13 09:45] LABS: BF Color Yellow; Body Fluid Source THORACENTESIS FLD; Clarity Cloudy/Turbid (Clear); RBC Background Count 0.001; RBC Count-Automated 140000 /cumm; Tube # 3; WBC/NonHematic-Auto 107000 /cumm
[2018-06-13 09:53] LABS: Pleural Fluid, LDH 5518 U/L (Not Available)
--- NOTE | 2018-06-13 10:20 | OP ---
DATE OF PROCEDURE: 06/13/2018 PROCEDURE: Left thoracentesis. PREOPERATIVE DIAGNOSIS: Left pleural effusion. POSTOPERATIVE DIAGNOSIS: Left empyema. ANESTHESIA: 1% lidocaine without epinephrine. DESCRIPTION OF PROCEDURE: The patient was placed in the sitting position. Ultrasound was used to identify the entry site, which was approximately at fifth and sixth interspace at the midscapular line on the left side. 1% lidocaine was used in the site of entry site. A [id number] catheter was placed into the chest and approximately 200 mL of yellow brown pus was removed, that was all I could get out. SUBJECTIVE: The patient tolerated the procedure well. Cardiothoracic Surgery will be consulted for probable decortication. Job ID: [id number]
[2018-06-13] MEDS: Nystatin 500,000 UNITS/5 ML UDCUP SSW SCH ×4 (11:08→21:25)
[2018-06-13 11:09] LABS: BF Segmented Neutrophils 94 %; Cell Count Non Hematic 4 %; Lymphocytes 2 %
--- NOTE | 2018-06-13 11:37 | PRG ---
DATE OF SERVICE: 06/13/2018 SUBJECTIVE: A 63-year-old female, being seen for acute kidney injury. The patient denies any nausea, vomiting, or chest pain. OBJECTIVE: CONSTITUTIONAL: The patient is awake, alert. VITAL SIGNS: Afebrile. Pulse 85, breathing 16, blood pressure 152/80. GENERAL APPEARANCE AND MENTAL STATUS: Fair. HEAD/NECK: Normocephalic. Atraumatic. EYES: EOMI. No deformity. EARS: Clear. No ulcers. NOSE: Intact. No lesions. MOUTH: Clear. No discharge. THROAT: Clear. No exudate. LUNGS: Clear. No crackles. CARDIAC: S1, S2. No rub. ABDOMEN: Benign. Bowel sounds positive. GENITALIA/RECTUM: Faust absent. BACK/EXTREMITIES: Edema 0+. NEUROLOGICAL: Alert and motor intact. SKIN: LYMPHATICS: LABORATORY DATA: Labs show creatinine of 3. ASSESSMENT: 1. Acute kidney injury with chronic kidney disease of stage 4 due to cardiorenal syndrome and contrast. 2. Hypertension, stable. 3. Anemia, stable. 4. Medications based on GFR are appropriate. No indication for dialysis. Job ID: [id number]
[2018-06-13] MEDS: Clindamycin/D5W 600 MG in Premix Bag 1 BAG IVPB SCH ×2 (11:53→18:02)
--- NOTE | 2018-06-13 12:18 | CON ---
DATE OF CONSULTATION: 06/13/2018 REASON FOR CONSULTATION: Evaluate the patient for empyema and treatment options. HISTORY OF PRESENT ILLNESS: Ms. Benitez is a 63-year-old woman, who was admitted to the hospital on 06/10 with chest pain and shortness of breath. She has been found to have a left empyema. She underwent 200 mL thoracentesis earlier this morning, which yielded purulent yellow material. Her white blood cell count has risen up into the 26,000 range since admission. She has been maintained for Haemophilus influenzae, which grew out of 2 separate blood cultures on ceftriaxone. I have been asked to see her to provide treatment options. PAST MEDICAL HISTORY: 1. Hypertension. 2. Dyslipidemia. 3. Diabetes mellitus. 4. Obstructive sleep apnea. PAST SURGICAL HISTORY: 1. Tonsillectomy. 2. Cholecystectomy. 3. Right eye surgery. 4. Right foot surgery. SOCIAL HISTORY: She does not use alcohol or tobacco. She is retired from an office job. ALLERGIES: SHE HAS ANAPHYLACTIC REACTION TO PENICILLIN AND BACTRIM. CURRENT MEDICATIONS: 1. Metformin. 2. Pantoprazole. 3. Benicar. 4. Singulair. 5. Flonase. 6. Trilipix. 7. Atorvastatin. 8. Aspirin. PHYSICAL EXAMINATION: GENERAL: This is a moderately obese woman, resting comfortably in the ICU. VITAL SIGNS: Pulse is 86, blood pressure is 131/100, and oxygen saturation is 95% on room air. HEENT: Sclerae nonicteric. Pupils equal and round bilaterally. NECK: Supple. CHEST: She has depressed breath sounds on the left base. Otherwise, clear lung sounds. ABDOMEN: Soft and nontender. EXTREMITIES: No edema. LABORATORY DATA: Of note, her white blood cell count is 26.7, hemoglobin is 12.4, platelet count 166. Potassium is 3.8 and glucose is 175. ASSESSMENT AND PLAN: This is a pleasant 63-year-old woman with a left-sided empyema. I discussed thoracoscopy with decortication with her and her , and they are agreeable for us to proceed and signed. Job ID: [id number]
--- NOTE | 2018-06-13 12:56 | PDOC.PN ---
- Subjective Encounter Start Date: 06/13/18 Encounter Start Time: 12:54 Patient seen and examined, no new issues in the past 24 hours, at bedside, all questions answered. - Objective Resuscitation Status - Order Detail: 06/10/18 17:01 Resuscitation Status Routine Resuscitation Status: FULL: Full Resuscitation Vital Signs & Weight: Vital Signs (12 hours) Temp Pulse Ox 06/13/18 12:00 97.8 F 06/13/18 08:00 97.9 F 94 L 06/13/18 04:00 97.9 F Weight Admit Weight 229 lb 1.6 oz Weight 229 lb 1.6 oz Most Recent Monitor Data Heart Rate from ECG 95 NIBP 165/92 NIBP BP-Mean 116 Respiration from ECG 33 SpO2 95 I&O: 06/12/18 06/13/18 06/14/18 06:59 06:59 06:59 Intake Total 3393.8 2224.3 240 Output Total 285 605 253 Balance 3108.8 1619.3 -13 Result Diagrams: 06/13/18 04:04 06/13/18 04:04 Phys Exam - Physical Examination Constitutional: NAD HEENT: PERRLA, moist MMs, sclera anicteric Neck: no nodes, no JVD, supple corase breath sounds no respiratory distress Cardiovascular: RRR, no significant murmur, no rub Gastrointestinal: soft, non-tender, no distention Musculoskeletal: pulses present, edema present (1+ pitting edema) Neurological: non-focal, normal sensation Psychiatric: normal affect, A&O x 3 Dx/Plan (1) SUDEEP (acute kidney injury) Code(s): N17.9 - ACUTE KIDNEY FAILURE, UNSPECIFIED Status: Acute (2) Acute respiratory failure with hypoxia Code(s): J96.01 - ACUTE RESPIRATORY FAILURE WITH HYPOXIA Status: Acute (3) Bacteremia Code(s): R78.81 - BACTEREMIA Status: Acute (4) Metabolic acidosis Code(s): E87.2 - ACIDOSIS Status: Acute (5) Pharyngeal edema Code(s): J39.2 - OTHER DISEASES OF PHARYNX Status: Acute (6) Sepsis Code(s): A41.9 - SEPSIS, UNSPECIFIED ORGANISM Status: Acute - Plan * continue with current plan of care * CT tube placement for today * Cr rising but rate of rise slowing down, likely ATN, will monitor, target SBP 130-150mmHg for now, will keep an eye out for post ATN diuresis\ * cont dobutamine * elevated WBC likely secondary to steroids, no other systemic findings of infection * case and plan d/w patient and at length, they understood and agreed with this plan.
[2018-06-13] MEDS ORDERED: Bupivacaine HCl 0.5%/Epinephrine 1:200,000/PF 30 ml Vial ONE (14:41)
[2018-06-13] MEDS ORDERED: Midazolam HCl 2 mg/2 ml Vial ONE (15:29)
[2018-06-13] MEDS ORDERED: Fentanyl 100 MCG/2 ML VIAL ONE (15:29)
[2018-06-13] MEDS ORDERED: Famotidine/PF 20 mg/2ml Vial ONE (15:29)
[2018-06-13] MEDS ORDERED: cefTRIAXone\\ROCEPHIN 1 GM VIAL ONE (16:14)
--- NOTE | 2018-06-13 16:54 | PDOC.CTH ---
Cardiology Progress Note - Subjective She is better. She is off the BiPAP. She had her pleural effusion tapped today and it showed purulent material. - Objective Vital Signs Temp Pulse Ox 06/13/18 12:00 97.8 F 06/13/18 08:00 97.9 F 94 L Admit Weight 229 lb 1.6 oz Weight 229 lb 1.6 oz 06/12/18 06/13/18 06/14/18 06:59 06:59 06:59 Intake Total 3393.8 2224.3 240 Output Total 285 605 513 Balance 3108.8 1619.3 -273 - Physical Examination General/Neuro: alert & oriented x3, NAD Neck: no JVD present Lungs: unlabored respirations Heart: RRR Abdomen: NT/ND Extremities: + edema B (1+) - Telemetry Telemetry Rhythm: NSR - Labs Result Diagrams: 06/13/18 04:04 06/13/18 04:04 Troponin/CKMB Troponin I Less than 0.010 ng/mL (< 0.028) 06/11/18 00:22 - Assessment/Plan 1. Haemophillus sp. bacteremia. 2. New onset mild LV dysfunction. 3. Sepsis. 4. Pleural effusion. 5. Mild pulmonary edema. 6. SUDEEP on CKD. Concern for ATN now. 7. Left empyema.. PLAN: - Left sided empyema. - IV abx per primary team. - Left sided decortication planned. - I would hold lasix for now and continue dobutamine. - Will follow.
--- NOTE | 2018-06-13 17:01 | PRG ---
DATE OF SERVICE: 06/13/2018 SUBJECTIVE: Ms. Benitez had a thoracentesis which was consistent with empyema, and she is undergoing exploration of the area and possible decortication. Continues to be afebrile. Heart rate in the 70s, O2 saturation is 94%. White cell count went up to 26,000, hemoglobin 12, platelets 166, and 36% bands. Creatinine at 3.0. Microbiology with the Haemophilus influenzae. ASSESSMENT: Type 2 diabetes mellitus, hypertension, and possible either epiglottitis or retropharyngeal abscess, possibility of extension into the mediastinum with mediastinitis likelihood increased with the finding of this empyema. Continue Rocephin and will fu the results of chest exploration. Job ID: [id number] [facility]
--- NOTE | 2018-06-13 17:25 | OP ---
DATE OF PROCEDURE: 06/13/2018 PREOPERATIVE DIAGNOSIS: Left empyema. POSTOPERATIVE DIAGNOSIS: Left empyema. PROCEDURE: Left thoracoscopy with total pulmonary decortication. ANESTHESIA: General endotracheal. ESTIMATED BLOOD LOSS: 150. DRAINS: 32-Mauritian chest tubes x2. SPECIMENS: None. DESCRIPTION OF PROCEDURE: After consent was obtained, the patient was brought to the operating room, placed in the supine position on the operating table. Appropriate landmarks were placed and general endotracheal anesthesia was induced. The patient was placed in the right lateral decubitus position. Joints were appropriately padded. SCDs were used. The left chest wall was prepped and draped in usual sterile fashion. A skin incision was made and 2 port sites were created. The left lung was deflated. The chest was entered with the thoracoscope and there was extensive fibrinous purulent material throughout the chest. This was debrided and irrigated with 6 L total of saline. After completely freeing the lung and irrigating the chest clear, the 32-Mauritian chest tubes were placed, one along the diaphragm, and the one to the apex. The port sites were all injected with 0.5% Marcaine with epinephrine. Chest tubes were secured with silk suture and connected to suction. The patient was then transported back to the intensive care unit in stable condition. Needle, sponge, and instruments counts were all reported correct at the end of the procedure. Job ID: [id number]
[2018-06-13] MEDS ORDERED: Fentanyl 100 MCG/2 ML VIAL SLOW IVP PRN ×2 (17:27)
[2018-06-13] MEDS: cefTRIAXone\\ROCEPHIN 2 GM in Sodium Chloride 0.9% 100 ML IVPB SCH (17:50)
[2018-06-13] MEDS ORDERED: Fentanyl BOLUS 250 ML IVPB PRN (17:53)
[2018-06-13] MEDS ORDERED: Lorazepam 2 MG/ML VIAL SLOW IVP PRN (17:53)
[2018-06-13] MEDS ORDERED: fentaNYL Citrate/PF 2,000 MCG in Sodium Chloride 0.9% 60 ML IV SCH (17:53)
[2018-06-13] MEDS ORDERED: DISCONTINUE PREVIOUS NARCOTIC PAIN MEDICATIONS AND BENZODIAZEPINES FS SCH (17:53)
[2018-06-13] MEDS ORDERED: Propofol BOLUS 1,000 MG/100 ML VIAL IV PRN (17:53)
[2018-06-13] MEDS ORDERED: Morphine 2 MG/ML SYRINGE SLOW IVP PRN (17:53)
[2018-06-13 18:49] LABS: Actual Bicarbonate (HCO3a) 19.6 mEq/L (22-28); Base Excess (BEa) -5.5 mEq/L (-2.0 to +3.0); CO2 Tension 37.2 mmHg (35.0-45.0); Calcium, Ionized 1.03 mmol/L (1.12-1.30); Carboxyhemoglobin (COHb) 1.1 gm% (0.0-3.0); O2 Tension (PaO2) 75.7 mmHg (> 80.0); Potassium - ABG Lab 3.37 mmol/L (3.70-5.30); pH, Arterial 7.34 (7.35-7.45)
[2018-06-13 19:54] LABS: Puncture Site RBA
--- NOTE | 2018-06-13 20:02 | RAD ---
SEMIUPRIGHT PORTABLE CHEST ONE VIEW: 06/13/18 HISTORY: 63-year-old female with history of status post left thoracoscopy. COMPARISON: 06/13/18 earlier study. Marked decrease in the size of the previously noted left pleural effusion. Endotracheal tube in satis factory location. Two left chest tubes in place. Minimal patchy parenchymal changes in the mid lung z one and lower lung zones bilaterally. Probable small right pleural effusion. No evidence for signific ant pneumothorax. IMPRESSION: Two left chest tubes in place with some patchy pleural and parenchymal changes bilaterally but defini te improvement in the previously noted larger left pleural effusion. Endotracheal tube in satisfactor y location. No significant left sided pneumothorax. POS: [facility]
[2018-06-13] MEDS ORDERED: PHENYLEPHRINE-NS 100 MCG/ML 10 ML SYRINGE ONE (20:50)
[2018-06-13] MEDS ORDERED: Rocuronium Bromide 10 MG/ML (10ML VIAL) ONE (20:50)
[2018-06-13] MEDS ORDERED: ePHEDrine/0.9% NaCl/PF SYRINGE 50 mg/10 ml ONE (20:50)
[2018-06-13] MEDS ORDERED: Succinylcholine Chloride 20 MG/ML 10 ml SYRINGE FS ONE (20:50)
[2018-06-13] MEDS ORDERED: Ondansetron PF 4 MG/2 ML Vial ONE (20:50)
[2018-06-13] MEDS ORDERED: PROPOFOL 200 MG/20 ML VIAL ONE (20:50)
[2018-06-13] MEDS ORDERED: Lidocaine 1% PF 5 ML VIAL ONE (20:50)
[2018-06-13] MEDS: Propofol 1,000 MG/100 ML VIAL IV PRN (21:21)
[2018-06-14] MEDS: Clindamycin/D5W 600 MG in Premix Bag 1 BAG IVPB SCH ×5 (00:16→23:47)
[2018-06-14] MEDS: Benzonatate 100 MG CAP PO SCH ×2 (05:15→17:44)
[2018-06-14] MEDS: guaiFENesin/DM ER PO SCH ×2 (05:15→21:10)
[2018-06-14] MEDS: Propofol 1,000 MG/100 ML VIAL IV PRN (05:15)
--- NOTE | 2018-06-14 07:35 | PDOC.PULCC ---
CCU Progress Note: Subj/Obj - Subjective Date: 06/14/18 Time: 07:33 Subjective: Intubated and on mechanical ventilation. Looks like she is doing well. - Objective Allergies/Adverse Reactions: Allergies Allergy/AdvReac Type Severity Reaction Status Date / Time Penicillins Allergy Verified 06/10/18 21:44 sulfamethoxazole Allergy Verified 06/10/18 21:44 [From Bactrim] trimethoprim [From Bactrim] Allergy Verified 06/10/18 21:44 Medications: Current Medications Acetaminophen (Tylenol) 650 mg PO Q4H PRN PRN Reason: Headache/Fever/Mild Pain (1-3) Benzonatate (Tessalon) 100 mg PO 0600,1800 [facility] Last Admin: 06/14/18 05:15 Dose: Not Given Enoxaparin Sodium (Lovenox) 40 mg SC 0900 [facility] Last Admin: 06/13/18 09:28 Dose: 40 mg Famotidine (Pepcid) 20 mg PO DAILY [facility] Fluticasone Propionate (Flonase Nasal [place]) 1 gm NASAL BID [facility] Last Admin: 06/13/18 21:25 Dose: Not Given Guaifenesin/Dextromethorphan (Mucinex Dm) 1 tab PO 0600,1800 [facility] Last Admin: 06/14/18 05:15 Dose: Not Given Dobutamine HCl/Dextrose (Dobutamine 500 Mg/250 Ml) 250 mls @ 7.794 mls/hr IVPB INF MACKENZIE; Protocol Last Admin: 06/12/18 17:03 Dose: 250 mls Ceftriaxone Sodium 2 gm/ (Sodium Chloride) 100 mls @ 200 mls/hr IVPB Q24HR [facility] Last Admin: 06/13/18 17:50 Dose: Not Given Clindamycin Phosphate/Dextrose (600 mg/ Device) 50 mls @ 100 mls/hr IVPB Q6HR [facility] Last Admin: 06/14/18 05:20 Dose: 50 mls Fentanyl Citrate 2,000 mcg/ (Sodium Chloride) 100 mls @ 0 mls/hr IV INF [place]ENZ[place]; Protocol Stop: 07/13/18 17:53 Last Admin: 06/13/18 18:07 Dose: 100 mls Fentanyl Citrate (Fentanyl Bolus) 250 mls @ 0 mls/hr IVPB PRN PRN PRN Reason: Breakthrough pain/agitation Stop: 07/13/18 17:53 Lorazepam (Ativan) 2 mg SLOW IVP Q1H PRN PRN Reason: Breakthrough agitation Stop: 07/13/18 17:53 Methylprednisolone Sodium Succinate (Solu-Medrol) 20 mg IVP Q6HR [facility] Last Admin: 06/14/18 05:15 Dose: 20 mg Midodrine (Proamatine) 5 mg PO BID [facility] Last Admin: 06/13/18 21:25 Dose: Not Given Miscellaneous Medication (Pharmacy To Dose) 1 each IVPB PRN PRN PRN Reason: Pharmacy to dose Morphine Sulfate (Morphine) 2 mg SLOW IVP Q1H PRN PRN Reason: BREAKTHROUGH PAIN/Agitation Stop: 07/13/18 17:53 Last Admin: 06/13/18 18:01 Dose: 2 mg Discontinue Previous Narcotic Pain Medications And Benzodiazepines 1 each FS .ONE [facility] Stop: 07/13/18 17:53 Nystatin (Mycostatin) 500,000 units SSW QID [facility] Last Admin: 06/13/18 21:25 Dose: Not Given Polyethylene Glycol (Miralax) 17 gm PO DAILYPRN PRN PRN Reason: Constipation Last Admin: 06/12/18 13:15 Dose: 17 gm Propofol (Diprivan) 1,000 mg IV INF PRN; Protocol PRN Reason: TO ACHIEVE GOAL RASS Stop: 07/13/18 17:53 Last Admin: 06/14/18 05:15 Dose: 1,000 mg Propofol (Diprivan Bolus) 20 mg IV Q5MIN PRN PRN Reason: BREAKTHROUGH AGITATION Stop: 07/13/18 17:53 Sodium Chloride (Flush - Normal Saline) 10 ml IVF Q12HR [facility] Last Admin: 06/13/18 21:25 Dose: 10 ml Sodium Chloride (Flush - Normal Saline) 10 ml IVF PRN PRN PRN Reason: Saline Flush Vital Signs and I&O: Vital Signs Temp 98.5 F 06/14/18 04:00 Pulse 76 06/14/18 06:48 Resp 18 06/14/18 06:00 BP 123/70 06/14/18 06:48 Pulse Ox 97 06/13/18 20:00 Intake & Output 06/13/18 06/14/18 06/14/18 18:59 06:59 18:59 Intake Total 322.1 459.5 Output Total 763 795 75 Balance -440.9 -335.5 -75 Weight 229 lb 1.6 oz Intake: Intake, IV Amount 82.1 459.5 DOBUTamine 500 mg/250 ml 77 86 250 ml @ 2.5 MCG/KG/MIN 7 .794 mls/hr IVPB INF MACKENZIE Rx#:[id number] Fentanyl BOLUS 250 ml @ 5.1 46.5 As Directed IVPB PRN PRN Rx#:[id number] Propofol 1000 mg (See 96 Protocol) IV INF PRN Rx#: [id number] Sodium Chloride 0.9% 10 231 ml IVF PRN PRN Rx#: [id number] Oral 240 Output: Chest Tube Drainage [address] x's 2 50 50 0 Output, Faust 713 745 75 Other: Voiding Method Indwelling Catheter Indwelling Catheter Vent Setting: SIMV, passed SBT Spontaneous Breathing Test: done CCU Progress Note: Exam - Physical Exam Constitutional: NAD HEENT: PERRLA, moist MMs Neck: no nodes, no JVD Cardiovascular: RRR Respiratory: clear to auscultation bilaterally Deviation from normal: chest tubes on left Gastrointestinal: soft, non-tender Neurological: non-focal, normal sensation, moves all 4 limbs Lymphatic: no nodes Psychiatric: normal affect, A&O x 3 Skin: no rash CCU Progress Note: Data - Labs Result Diagrams: 06/13/18 04:04 06/13/18 04:04 Lab results: Laboratory Results 06/13/18 06/13/18 06/13/18 04:04 04:04 08:57 WBC 26.7 H RBC 4.46 Hgb 12.4 Hct 37.4 MCV 83.8 MCH 27.9 MCHC 33.2 RDW 12.9 Plt Count 166 MPV 10.6 H Neutrophils % (Manual) 45 Band Neuts % (Manual) 36 H Lymphocytes % (Manual) 8 L Monocytes % (Manual) 6 Basophils % (Manual) 1 Metamyelocytes % (Man) 3 H Myelocytes % 1 H Nucleated RBCs # (Man) 1 H Plt Morphology Comment Appears Adequate RBC Morph Comment Normal Specimen Type Puncture Site Bicarbonate Actual ABG pH ABG pCO2 ABG pO2 ABG O2 Sat Calc/Bryon ABG O2 Content ABG Base Excess ABG Hematocrit ABG Hemoglobin ABG Oxyhemoglobin ABG Carboxyhemoglobin ABG Methemoglobin ABG Deoxyhemoglobin A-a O2 Gradient Ionized Calcium Mode of Support Mechanical Rate Inspired O2 Tidal Volume Pressure Support PEEP or CPAP Sodium 131 L Potassium 3.8 Chloride 96 L Carbon Dioxide 20 L Anion Gap 19 BUN 59 H Creatinine 3.00 H Estimated GFR (MDRD) 16 Glucose 175 H POC Glucose Calcium 8.6 Fluid Source Fluid Tube Number Fluid Color Fluid Clarity Fluid pH Fluid WBC Fluid RBC Fluid Seg Neutrophil % Fluid Lymphocytes % Non-Hematological % Fluid Triglycerides 126 Fluid Comment Pleural Total Protein 3.9 Pleural LDH 5518 Pleural Glucose 22 Pleural Amylase Less than 30 06/13/18 06/13/18 06/13/18 08:57 08:57 17:05 WBC RBC Hgb Hct MCV MCH MCHC RDW Plt Count MPV Neutrophils % (Manual) Band Neuts % (Manual) Lymphocytes % (Manual) Monocytes % (Manual) Basophils % (Manual) Metamyelocytes % (Man) Myelocytes % Nucleated RBCs # (Man) Plt Morphology Comment RBC Morph Comment Specimen Type Puncture Site Bicarbonate Actual ABG pH ABG pCO2 ABG pO2 ABG O2 Sat Calc/Bryon ABG O2 Content ABG Base Excess ABG Hematocrit ABG Hemoglobin ABG Oxyhemoglobin ABG Carboxyhemoglobin ABG Methemoglobin ABG Deoxyhemoglobin A-a O2 Gradient Ionized Calcium Mode of Support Mechanical Rate Inspired O2 Tidal Volume Pressure Support PEEP or CPAP Sodium Potassium Chloride Carbon Dioxide Anion Gap BUN Creatinine Estimated GFR (MDRD) Glucose POC Glucose 199 H Calcium Fluid Source THORACENTESIS FLD Fluid Tube Number 3 Fluid Color Yellow Fluid Clarity Cloudy/Turbid H Fluid pH 7.2 Fluid WBC 886027 Fluid RBC 616602 Fluid Seg Neutrophil % 94 Fluid Lymphocytes % 2 Non-Hematological % 4 Fluid Triglycerides Fluid Comment Note: Pleural Total Protein Pleural LDH Pleural Glucose Pleural Amylase 06/13/18 18:48 WBC RBC Hgb Hct MCV MCH MCHC RDW Plt Count MPV Neutrophils % (Manual) Band Neuts % (Manual) Lymphocytes % (Manual) Monocytes % (Manual) Basophils % (Manual) Metamyelocytes % (Man) Myelocytes % Nucleated RBCs # (Man) Plt Morphology Comment RBC Morph Comment Specimen Type ARTERIAL Puncture Site RBA Bicarbonate Actual 19.6 L ABG pH 7.34 L ABG pCO2 37.2 ABG pO2 75.7 ABG O2 Sat Calc/Bryon 94.6 ABG O2 Content 17.1 L ABG Base Excess -5.5 L ABG Hematocrit 38.0 ABG Hemoglobin 13.0 ABG Oxyhemoglobin 93.3 L ABG Carboxyhemoglobin 1.1 ABG Methemoglobin 0.30 ABG Deoxyhemoglobin 5.3 H A-a O2 Gradient 234.300 H Ionized Calcium 1.03 L Mode of Support SIMV Mechanical Rate 18 Inspired O2 50 Tidal Volume 500 Pressure Support 10 PEEP or CPAP 5.0 Sodium 129 L Potassium 3.37 L Chloride 96 L Carbon Dioxide Anion Gap BUN Creatinine Estimated GFR (MDRD) Glucose POC Glucose Calcium Fluid Source Fluid Tube Number Fluid Color Fluid Clarity Fluid pH Fluid WBC Fluid RBC Fluid Seg Neutrophil % Fluid Lymphocytes % Non-Hematological % Fluid Triglycerides Fluid Comment Pleural Total Protein Pleural LDH Pleural Glucose Pleural Amylase - ABG Interpretation ABG Results: ABG pH 7.34 (7.35-7.45) L 06/13/18 18:48 ABG pCO2 37.2 mmHg (35.0-45.0) 06/13/18 18:48 ABG O2 Sat Calc/Bryon 94.6 % (94.0-98.0) 06/13/18 18:48 ABG Base Excess -5.5 mEq/L (-2.0 to +3.0) L 06/13/18 18:48 - Radiology Interpretation Chest x-ray Additional comments: better left lower lobe CCU Progress Note: A/P - Problems (1) Empyema lung Current Visit: Yes Status: Acute Code(s): J86.9 - PYOTHORAX WITHOUT FISTULA (2) SUDEEP (acute kidney injury) Current Visit: Yes Status: Acute Code(s): N17.9 - ACUTE KIDNEY FAILURE, UNSPECIFIED (3) Acute respiratory failure with hypoxia Current Visit: Yes Status: Acute Code(s): J96.01 - ACUTE RESPIRATORY FAILURE WITH HYPOXIA (4) Pharyngeal edema Current Visit: Yes Status: Acute Code(s): J39.2 - OTHER DISEASES OF PHARYNX (5) Sepsis Current Visit: Yes Status: Acute Code(s): A41.9 - SEPSIS, UNSPECIFIED ORGANISM Qualifiers: Sepsis type: Haemophilus influenzae Qualified Code(s): A41.3 - Sepsis due to Hemophilus influenzae - Time Spent with Patient Time (minutes): 45 - Plan Plan: The patient will be extubated. Her labs were still pending at the time of this dictation. If the trend is worse, then we will consider CT of the neck and chest. Unfortunately, her renal function prohibits the use of IV contrast. She will continue antibiotics. Consult PT
[2018-06-14 07:43] LABS: Hemoglobin 11.6 g/dL (12.0-16.0); Mean Corpuscular Volume 82.6 fL (78.0-98.0); Mean Platelet Volume 10.7 fL (7.4-10.4); Platelet Count 146 thou/uL (130-400); Red Blood Cell (RBC) Count 4.12 mill/uL (4.20-5.40); White Blood Cell (WBC) Count 27.9 thou/uL (4.8-10.8)
[2018-06-14] MEDS ORDERED: DC Sedation Protocol FS ONE (07:44)
[2018-06-14 07:56] LABS: Anion Gap 19 mmol/L (10-20); BUN (Urea Nitrogen) 74 mg/dL (9.8-20.1); Calc. Creatinine Clearance 32 mL/min (70-130); Calcium 8.4 mg/dL (7.8-10.44); Carbon Dioxide 20 mmol/L (23-31); Chloride 95 mmol/L (98-107); Estimated GFR-MDRD 16; Glucose 280 mg/dL (80-115); Potassium 3.6 mmol/L (3.5-5.1); Sodium 130 mmol/L (136-145)
--- NOTE | 2018-06-14 08:07 | RAD ---
PORTABLE UPRIGHT FRONTAL CHEST RADIOGRAPH: Date: 06/14/18 COMPARISON: 06/13/18. HISTORY: Ventilated patient. FINDINGS: Two stable left-sided chest tubes are present. Stable endotracheal tube. Mild pulmonary vascular prom inence. Dense opacity in the left base inferiorly with obscuration of the left hemidiaphragm, suggest ing partial consolidation/collapse of left lower lobe and/or small volume left pleural fluid. IMPRESSION: Lines and tubes as detailed above. Increased density in the left base persists as above. POS: JENNYFER
[2018-06-14] MEDS: Fluticasone Propionate Nasal Spray 16 gm Bottle NASAL SCH ×2 (08:58→21:11)
[2018-06-14] MEDS: Famotidine 20 MG TAB PO SCH (08:58)
[2018-06-14] MEDS: Enoxaparin Sodium 40 MG/0.4 ML SYRINGE SC SCH (08:58)
[2018-06-14 09:18] LABS: Band 19 % (5-11); Lymphocytes 6 % (21-51); MDiff Complete? YES; Metamyelocyte 2 % (0-0); Monocytes 6 % (0-10); Myelocyte 1 % (0-0); Neutrophil 66 % (42-75); Nucleated RBC 1 % (0); RBC Morphology Normal
[2018-06-14] MEDS: Nystatin 500,000 UNITS/5 ML UDCUP SSW SCH ×4 (10:19→21:11)
[2018-06-14] MEDS: DOBUTamine 500 mg/250 ml 250 ML IVPB SCH (12:28)
[2018-06-14] MEDS ORDERED: Dextrose 50% Abboject 50 ML SYRINGE SLOW IVP PRN (12:41)
[2018-06-14] MEDS ORDERED: Dextrose 5% in Water 1,000 ML IV PRN (12:41)
--- NOTE | 2018-06-14 12:44 | PRG ---
DATE OF SERVICE: 06/14/2018 SUBJECTIVE: This is a 63-year-old female being seen for acute kidney injury. The patient denies any nausea, vomiting, or chest pain. OBJECTIVE: CONSTITUTIONAL: The patient is awake, alert. VITAL SIGNS: Afebrile. Pulse 97, breathing 16, and blood pressure 127/60. GENERAL APPEARANCE AND MENTAL STATUS: Fair. HEAD/NECK: Normocephalic. Atraumatic. EYES: EOMI. No deformity. EARS: Clear. No ulcers. NOSE: Intact. No lesions. MOUTH: Clear. No discharge. THROAT: Clear. No exudate. LUNGS: Clear. No crackles. CARDIAC: S1, S2. No rub. ABDOMEN: Benign. Bowel sounds positive. GENITALIA/RECTUM: Faust absent. BACK/EXTREMITIES: Edema 0+. NEUROLOGICAL: Alert and motor intact. SKIN: LYMPHATICS: LABORATORY DATA: Show hemoglobin 9.6. Creatinine 2.97. ASSESSMENT: 1. Acute kidney injury. 2. Hypertension, stable. 3. Metabolic acidosis, stable. No indication for dialysis. The patient is nonoliguric. Job ID: [id number]
--- NOTE | 2018-06-14 14:26 | PDOC.PN ---
- Subjective Encounter Start Date: 06/14/18 Encounter Start Time: 14:25 Patient seen and examined, s/p chest tube placement, extubated earlier today, at bedside, all questions answered. - Objective Resuscitation Status - Order Detail: 06/10/18 17:01 Resuscitation Status Routine Resuscitation Status: FULL: Full Resuscitation Vital Signs & Weight: Vital Signs (12 hours) Temp Pulse Resp BP Pulse Ox 06/14/18 12:00 98.6 F 06/14/18 08:00 98.1 F 92 L 06/14/18 07:36 100 25 H 96 06/14/18 07:35 96 06/14/18 06:48 76 123/70 06/14/18 06:00 18 06/14/18 04:00 98.5 F 18 Weight Admit Weight 229 lb 1.6 oz Weight 229 lb 1.6 oz Most Recent Monitor Data Heart Rate from ECG 92 NIBP 113/72 NIBP BP-Mean 85 Respiration from ECG 15 SpO2 97 I&O: 06/13/18 06/14/18 06/15/18 06:59 06:59 06:59 Intake Total 2224.3 781.6 Output Total 605 1558 710 Balance 1619.3 -776.4 -710 Result Diagrams: 06/14/18 Unknown 06/14/18 Unknown Additional Labs: Accuchecks 06/13/18 17:05 POC Glucose 199 H Phys Exam - Physical Examination Constitutional: NAD HEENT: PERRLA, moist MMs, sclera anicteric Neck: no nodes, no JVD, supple, full ROM Respiratory: no wheezing, no rales, no rhonchi Cardiovascular: RRR, no significant murmur, no rub +chest tube Gastrointestinal: soft, non-tender, no distention, positive bowel sounds Musculoskeletal: pulses present (trace), edema present Dx/Plan (1) SUDEEP (acute kidney injury) Code(s): N17.9 - ACUTE KIDNEY FAILURE, UNSPECIFIED Status: Acute (2) Acute respiratory failure with hypoxia Code(s): J96.01 - ACUTE RESPIRATORY FAILURE WITH HYPOXIA Status: Acute (3) Bacteremia Code(s): R78.81 - BACTEREMIA Status: Acute (4) Metabolic acidosis Code(s): E87.2 - ACIDOSIS Status: Acute (5) Pharyngeal edema Code(s): J39.2 - OTHER DISEASES OF PHARYNX Status: Acute (6) Sepsis Code(s): A41.9 - SEPSIS, UNSPECIFIED ORGANISM Status: Acute Qualifiers: Sepsis type: Haemophilus influenzae Qualified Code(s): A41.3 - Sepsis due to Hemophilus influenzae - Plan * will start insulin sliding scale and ACHS accuchecks * renal function stbalizing and Cr should start to fall in the next 24-48hrs, likely will have post ATN diuresis * continue current plan of care * chest tube in place * case and plan d/w patient at length, at bedside, they understand and agree with this plan
[2018-06-14] MEDS: cefTRIAXone\\ROCEPHIN 2 GM in Sodium Chloride 0.9% 100 ML IVPB SCH (16:43)
[2018-06-14] MEDS: HumaLOG 300 UNITS/3 ML VIAL SC PRN ×2 (16:50→21:10)
--- NOTE | 2018-06-14 17:16 | PDOC.CTH ---
Cardiology Progress Note - Subjective She is doing better. Still on NC. Chest tubes still in place. - Objective Vital Signs Temp Pulse Pulse Pulse Resp BP BP 06/14/18 16:00 97.9 F 06/14/18 14:45 97 89 131/84 06/14/18 12:00 98.6 F 06/14/18 08:00 98.1 F 06/14/18 07:36 100 25 H 06/14/18 07:35 06/14/18 06:48 76 123/70 06/14/18 06:00 18 BP Pulse Ox Pulse Ox Pulse Ox 06/14/18 16:00 06/14/18 14:45 132/100 H 95 96 06/14/18 12:00 06/14/18 08:00 92 L 06/14/18 07:36 96 06/14/18 07:35 96 06/14/18 06:48 06/14/18 06:00 Admit Weight 229 lb 1.6 oz Weight 229 lb 1.6 oz 06/13/18 06/14/18 06/15/18 06:59 06:59 06:59 Intake Total 2224.3 781.6 0 Output Total 605 1558 880 Balance 1619.3 -776.4 -880 - Physical Examination General/Neuro: alert & oriented x3 Neck: no JVD present Lungs: unlabored respirations Heart: RRR Abdomen: NT/ND Extremities: + edema B (trace) - Telemetry Telemetry Rhythm: NSR - Labs Result Diagrams: 06/14/18 Unknown 06/14/18 Unknown Troponin/CKMB Troponin I Less than 0.010 ng/mL (< 0.028) 06/11/18 00:22 - Assessment/Plan 1. Haemophillus sp. bacteremia. 2. New onset mild LV dysfunction. 3. Sepsis. 4. Pleural effusion. 5. Mild pulmonary edema. 6. SUDEEP on CKD. Likely ATN. 7. Left empyema.. PLAN: - IV abx per primary team. - Agree with IV fluids. Will stop dobutamine. - Will follow.
--- NOTE | 2018-06-14 22:48 | HP ---
HISTORY OF PRESENT ILLNESS: Ms. Benitez had decortication yesterday. She is sitting by the bedside. She is feeling better than the yesterday. Still with moderate pain, but not as much as before. The pain is distributed in the upper back and anterior chest area when she coughs mostly, and she has a Faust catheter inserted. PHYSICAL EXAMINATION: HEENT: Ocular movements are conjugate. Oral cavity is normal. No erythema noted. NECK: Supple. LUNGS: With fairly clear breath sounds except for the very base and right-sided inspiratory crackles. HEART: S1 and S2. Regular rate without murmurs. ABDOMEN: Soft, not distended or tender. EXTREMITIES: Moves extremities with some weakness, but no focal weakness. NEUROLOGIC: She is awake, oriented, follows commands. LABORATORY DATA: White cell count is 27,000, hemoglobin 11, platelets 146. Creatinine 2.97, sodium 130, potassium 3.6. LABORATORY DATA: The pleural fluid culture showed gram-negative coccobacilli seen in the sample. It is likely to returned materials inspector to be the same organism retrieved in the blood cultures obviously. ASSESSMENT: 1. Type 2 diabetes. 2. Hypertension. 3. Either epiglottitis or retropharyngeal abscess with possible extension into the mediastinum with empyema. She did not have areas of pneumonic infiltration on arrival and the possibility of mediastinitis persists. Job ID: [id number]
[2018-06-15] MEDS: Clindamycin/D5W 600 MG in Premix Bag 1 BAG IVPB SCH (05:06)
[2018-06-15] MEDS: Benzonatate 100 MG CAP PO SCH ×2 (05:06→18:01)
[2018-06-15 05:07] LABS: Anion Gap 18 mmol/L (10-20); BUN (Urea Nitrogen) 79 mg/dL (9.8-20.1); Calc. Creatinine Clearance 34 mL/min (70-130); Calcium 8.8 mg/dL (7.8-10.44); Carbon Dioxide 20 mmol/L (23-31); Chloride 97 mmol/L (98-107); Estimated GFR-MDRD 17; Glucose 221 mg/dL (80-115); Potassium 4.3 mmol/L (3.5-5.1); Sodium 131 mmol/L (136-145)
[2018-06-15] MEDS: HumaLOG 300 UNITS/3 ML VIAL SC PRN ×4 (05:21→20:33)
[2018-06-15 05:23] LABS: Band 14 % (5-11); Hemoglobin 11.8 g/dL (12.0-16.0); Lymphocytes 4 % (21-51); MDiff Complete? YES; Mean Corpuscular HGB CONC 33.3 g/dL (32.0-36.0); Mean Corpuscular Hemoglobin 27.1 pg (27.0-31.0); Mean Corpuscular Volume 81.5 fL (78.0-98.0); Metamyelocyte 1 % (0-0); Monocytes 8 % (0-10); Myelocyte 4 % (0-0); Neutrophil 69 % (42-75); Platelet Count 168 thou/uL (130-400); RBC Distribution Width 13.6 % (11.5-14.5); Red Blood Cell (RBC) Count 4.35 mill/uL (4.20-5.40); White Blood Cell (WBC) Count 26.8 thou/uL (4.8-10.8)
[2018-06-15] MEDS: guaiFENesin/DM ER PO SCH ×2 (05:32→19:09)
--- NOTE | 2018-06-15 08:11 | PRG ---
DATE OF SERVICE: 06/15/2018 SUBJECTIVE: The patient is doing well. She is up in a chair this morning. No adverse events overnight. OBJECTIVE: VITAL SIGNS: Temperature 98.4, pulse 92, blood pressure 165/89, O2 saturation 98%. A 24-hour intake 691, output 2060. HEENT: Unremarkable. NECK: Without adenopathy, JVD, or bruits. LUNGS: Slight diminished breath sounds in the left base compared to right chest tube in the left. CARDIAC: S1 and S2 regular. ABDOMEN: Soft. EXTREMITIES: No edema. LABORATORY DATA: White blood cell count 26.8 with hematocrit 35.5, and platelet count 168, 69% neutrophils, 14% bands. Sodium 131, potassium 4.3, chloride 97, CO2 of 20, BUN 79, creatinine 2.7, glucose 221. IMAGING STUDIES: Chest x-ray shows improving left effusion. ASSESSMENT: 1. Left-sided empyema from Haemophilus influenzae. 2. Haemophilus influenzae sepsis. 3. Status post acute hypoxic respiratory failure, which has improved. PLAN: The patient has improved from a functional standpoint. Her BUN and creatinine are slowly improving and her white count and bandemia are also slowly improving. We will go ahead and transfer her to the floor. Her Faust will be pulled out. Clindamycin will be stopped since nothing has grown from the cultures, except Haemophilus influenzae. She will continue on Rocephin. We will have her get more involved with physical therapy. I spoke with Dr. Clark, and the patient's chest tube is likely to be removed this afternoon. Job ID: [id number]
--- NOTE | 2018-06-15 08:13 | RAD ---
PORTABLE AP CHEST: Date: 06/15/18 HISTORY: On ventilator. COMPARISON: 06/14/18. FINDINGS: Two left-sided thoracostomy tubes remain in place and unchanged in position, one with tip overlying t he left lung apex and second with tip overlying the left lung base. There is increased density at the left lung base with elevation of the left hemidiaphragm, probably attributable to atelectasis. Mild prominence of interstitial markings in the left lung are present. The right lung is clear. Cardiac si lhouette is magnified by projection, but does appear mildly enlarged. Endotracheal tube has been [place] from the prior exam. No other interval change. IMPRESSION: 1. Interval removal of the endotracheal tube. The left-sided thoracostomy tubes are stable in positi on, and no pneumothorax is visualized. 2. Parenchymal changes left lung base, probably attributable to atelectasis as there is elevation of the left hemidiaphragm. 3. Mild cardiomegaly. 4. Mild nonspecific interstitial markings in the left perihilar region. POS: KANDY
[2018-06-15] MEDS: Nystatin 500,000 UNITS/5 ML UDCUP SSW SCH ×4 (09:00→20:28)
[2018-06-15] MEDS: Enoxaparin Sodium 40 MG/0.4 ML SYRINGE SC SCH (10:15)
[2018-06-15] MEDS: Famotidine 20 MG TAB PO SCH (10:16)
[2018-06-15] MEDS: Fluticasone Propionate Nasal Spray 16 gm Bottle NASAL SCH ×2 (10:16→20:27)
[2018-06-15] MEDS ORDERED: predniSONE 20 MG TAB PO SCH (10:30)
--- NOTE | 2018-06-15 12:49 | PDOC.PN ---
- Subjective Encounter Start Date: 06/15/18 Encounter Start Time: 12:48 Patient seen and examined, at bedside, no new issues or complaints, all questions answered. - Objective Resuscitation Status - Order Detail: 06/10/18 17:01 Resuscitation Status Routine Resuscitation Status: FULL: Full Resuscitation Vital Signs & Weight: Vital Signs (12 hours) Temp Pulse Ox 06/15/18 12:00 98.1 F 06/15/18 08:00 98.0 F 97 06/15/18 03:00 98.4 F Weight Admit Weight 229 lb 1.6 oz Weight 236 lb 15.951 oz Most Recent Monitor Data Heart Rate from ECG 75 NIBP 150/92 NIBP BP-Mean 111 Respiration from ECG 17 SpO2 98 I&O: 06/14/18 06/15/18 06/16/18 06:59 06:59 06:59 Intake Total 781.6 691 331 Output Total 1558 2060 483 Balance -776.4 -1369 -152 Result Diagrams: 06/15/18 04:13 06/15/18 04:13 Additional Labs: Accuchecks 06/15/18 06/15/18 06/14/18 11:45 05:17 16:49 POC Glucose 220 H 210 H 229 H Phys Exam - Physical Examination Constitutional: NAD HEENT: PERRLA, moist MMs, sclera anicteric Neck: no nodes, no JVD, supple Respiratory: no wheezing, no rales, no rhonchi +chest tube Cardiovascular: RRR, no significant murmur, no rub Gastrointestinal: soft, non-tender, no distention Musculoskeletal: pulses present, edema present Dx/Plan (1) SUDEEP (acute kidney injury) Code(s): N17.9 - ACUTE KIDNEY FAILURE, UNSPECIFIED Status: Acute (2) Acute respiratory failure with hypoxia Code(s): J96.01 - ACUTE RESPIRATORY FAILURE WITH HYPOXIA Status: Acute (3) Bacteremia Code(s): R78.81 - BACTEREMIA Status: Acute (4) Metabolic acidosis Code(s): E87.2 - ACIDOSIS Status: Acute (5) Pharyngeal edema Code(s): J39.2 - OTHER DISEASES OF PHARYNX Status: Acute (6) Sepsis Code(s): A41.9 - SEPSIS, UNSPECIFIED ORGANISM Status: Acute Qualifiers: Sepsis type: Haemophilus influenzae Qualified Code(s): A41.3 - Sepsis due to Hemophilus influenzae - Plan * changes in mental status likely hospital delirium, will monitor for now * Cr improving, Urine out put also increasing, will monitor BP, target SBP 120- 140mmHg * Chest tube potentially to be removed today, defer decision to surgery team * no other changes in plan of care for now * appreciate input from subspecialists * case and plan d/w patient and at length, they understood and agreed with this plan.
--- NOTE | 2018-06-15 15:07 | PDOC.CTH ---
Cardiology Progress Note - Subjective She is doing better. - Objective Vital Signs Temp Pulse Ox 06/15/18 12:00 98.1 F 06/15/18 08:00 98.0 F 97 Admit Weight 229 lb 1.6 oz Weight 236 lb 15.951 oz 06/14/18 06/15/18 06/16/18 06:59 06:59 06:59 Intake Total 781.6 691 751 Output Total 1558 2060 573 Balance -776.4 -1369 178 - Physical Examination General/Neuro: alert & oriented x3, NAD Neck: no JVD present Lungs: other: (Reduced breath sounds right base. ) Heart: RRR Abdomen: NT/ND Extremities: + edema B (1+) - Telemetry Telemetry Rhythm: NSR - Labs Result Diagrams: 06/15/18 04:13 06/15/18 04:13 Troponin/CKMB Troponin I Less than 0.010 ng/mL (< 0.028) 06/11/18 00:22 - Assessment/Plan 1. Haemophillus sp. bacteremia. 2. New onset mild LV dysfunction. 3. Sepsis. 4. Pleural effusion. 5. Mild pulmonary edema. 6. SUDEEP on CKD. Likely ATN. 7. Left empyema.. PLAN: - IV abx per primary team. - No new CV recs. - Will repeat echo before discharge as LV function may have already improved with treatment of sepsis.
--- NOTE | 2018-06-15 16:01 | PRG ---
DATE OF SERVICE: 06/15/2018 SUBJECTIVE: Ms. Benitez seen by the bedside, is trying to eat some lunch. She does not have swallowing pain. Mild dyspnea. Chest tube in place. She is urinating with an indwelling Faust catheter. OBJECTIVE: GENERAL: Able to speak a little bit. Breathless when she talks. HEENT: Ocular movements conjugate. NECK: No neck tenderness. LUNGS: With diminished breath sounds in the left side above the mid level of the left lung field. On the right side, it is clear. HEART: S1 and S2, regular rate. ABDOMEN: Soft, not distended. LABORATORY DATA: White cell count is at 26.8, hemoglobin 11.8, platelets 168, 69% neutrophils, 14% bands. Creatinine is 2.74, potassium 4.3. Cultures from the pleural fluid, we have thus far no acid-fast identified and routine cultures, the Gram stain showed gram-negative coccobacilli, but no growth obtained. Haemophilus influenzae from the prior blood culture results. Chest x-ray from today with interval removal of the endotracheal tube. Parenchymal changes of left lung base. Mild cardiomegaly and interstitial markings in the left perihilar region. ASSESSMENT AND PLAN: Severe Haemophilus influenzae infection with possible epiglottitis or retropharyngeal abscess and then empyema. The possibility of mediastinitis is considered. Repeat CT of chest and neck would be advisable in the next few days. Maria M Leija. Job ID: [id number] [id number]
[2018-06-15] MEDS: cefTRIAXone\\ROCEPHIN 2 GM in Sodium Chloride 0.9% 100 ML IVPB SCH (16:55)
--- NOTE | 2018-06-15 16:59 | CT ---
NONCONTRAST HEAD CT: 06/15/18 HISTORY: Confusion. COMPARISON: None. FINDINGS: No parenchymal hemorrhage. No extra-axial hematoma. No midline shift. Basilar cisterns are patent. Br ain volume, age appropriate. Supratentorial cortical souza-white matter differentiation is preserved. No evidence of hydrocephalus. Questionable hypoattenuation versus volume averaging at the cerebellar vermis. Better interrogation w ith brain MRI is recommended. Adequate aeration of the sinuses and mastoid air cells. Calvarium is intact. IMPRESSION: Volume averaging versus possible ischemic insult involving the cerebellar vermis. Better interrogatio n with brain MRI is recommended. POS: [facility]
--- NOTE | 2018-06-15 17:40 | PRG ---
DATE OF SERVICE: 06/15/2018 SUBJECTIVE: A 63-year-old female being seen for acute kidney injury. The patient denies any nausea, vomiting, or chest pain. OBJECTIVE: CONSTITUTIONAL: The patient is alert and awake. VITAL SIGNS: Afebrile, pulse 75, breathing 16, and blood pressure 165/95. GENERAL APPEARANCE AND MENTAL STATUS: Fair. HEAD/NECK: Normocephalic. Atraumatic. EYES: EOMI. No deformity. EARS: Clear. No ulcers. NOSE: Intact. No lesions. MOUTH: Clear. No discharge. THROAT: Clear. No exudate. LUNGS: Clear. No crackles. CARDIAC: S1, S2. No rub. ABDOMEN: Benign. Bowel sounds positive. GENITALIA/RECTUM: Faust absent. BACK/EXTREMITIES: Edema 0+. NEUROLOGICAL: Alert and motor intact. LABORATORY DATA: Lab show hemoglobin 11.8, potassium 4.3, creatinine 2.7. ASSESSMENT: 1. Acute kidney injury, improved. 2. Chronic kidney disease, stage 4, stable. 3. Hypertension, stable. 4. Anemia, stable. No indication for dialysis. 5. Metabolic acidosis, stable. Job ID: [id number]
[2018-06-16 07:02] LABS: Anion Gap 19 mmol/L (10-20); BUN (Urea Nitrogen) 92 mg/dL (9.8-20.1); Calc. Creatinine Clearance 45 mL/min (70-130); Calcium 9.3 mg/dL (7.8-10.44); Carbon Dioxide 20 mmol/L (23-31); Chloride 99 mmol/L (98-107); Estimated GFR-MDRD 21; Glucose 162 mg/dL (80-115); Potassium 4.9 mmol/L (3.5-5.1); Sodium 133 mmol/L (136-145)
[2018-06-16 07:54] LABS: Band 21 % (5-11); Hemoglobin 12.7 g/dL (12.0-16.0); Lymphocytes 22 % (21-51); MDiff Complete? YES; Mean Corpuscular HGB CONC 33.1 g/dL (32.0-36.0); Mean Corpuscular Hemoglobin 27.9 pg (27.0-31.0); Mean Corpuscular Volume 84.3 fL (78.0-98.0); Mean Platelet Volume 11.1 fL (7.4-10.4); Metamyelocyte 11 % (0-0); Monocytes 4 % (0-10); Myelocyte 2 % (0-0); Neutrophil 40 % (42-75); Platelet Count 179 thou/uL (130-400); RBC Distribution Width 13.8 % (11.5-14.5); Red Blood Cell (RBC) Count 4.56 mill/uL (4.20-5.40); White Blood Cell (WBC) Count 27.7 thou/uL (4.8-10.8)
[2018-06-16] MEDS: Famotidine 20 MG TAB PO SCH (08:59)
[2018-06-16] MEDS: guaiFENesin/DM ER PO SCH ×2 (09:00→20:01)
[2018-06-16] MEDS: Benzonatate 100 MG CAP PO SCH ×2 (09:00→20:01)
[2018-06-16] MEDS: Enoxaparin Sodium 40 MG/0.4 ML SYRINGE SC SCH (09:00)
[2018-06-16] MEDS ORDERED: predniSONE 20 MG TAB PO SCH (09:00)
[2018-06-16] MEDS: Nystatin 500,000 UNITS/5 ML UDCUP SSW SCH ×4 (09:00→20:01)
[2018-06-16] MEDS: Fluticasone Propionate Nasal Spray 16 gm Bottle NASAL SCH ×2 (09:01→20:01)
--- NOTE | 2018-06-16 09:51 | RAD ---
CHEST 1 VIEW: Date: 06/16/18 HISTORY: Ventilated patient. COMPARISON: Radiograph prior day. FINDINGS: No endotracheal tube or enteric tube is appreciated. Interval removal of left thoracostomy tube. Smal l left effusion. Trace left apical pneumothorax. Parenchymal opacity right lung base. IMPRESSION: 1. Interval removal of the left thoracostomy tube with trace left apical pneumothorax. 2. Right basilar opacity, likely layering effusion. 3. Small left effusion. POS: [facility]
--- NOTE | 2018-06-16 11:44 | PRG ---
DATE OF SERVICE: 06/16/2018 SUBJECTIVE: Ms. Benitez is much more awake and alert than yesterday. She has no acute complaints except for weakness. OBJECTIVE: VITAL SIGNS: On exam, temperature 97.7, pulse 80, respirations 18, O2 saturation 92% on 2 L, and blood pressure 164/82. HEENT: Unremarkable. NECK: No JVD. LUNGS: Few crackles in the left base. Right side clear. CARDIAC: S1, S2. Regular. ABDOMEN: Soft. EXTREMITIES: No edema. LABORATORY DATA: White blood cell count 27.7, hematocrit 38.4, and platelet count 179 with 40% neutrophils, 21% bands. Sodium 133, potassium 4.9, chloride 99, CO2 of 20, BUN 92, creatinine 2.3. Glucose 162. Pleural fluid culture has not resulted yet. Brain CT demonstrated possible ischemic insult in the cerebellar vermis. Confirmatory MRI was recommended. ASSESSMENT: 1. Sepsis secondary to Haemophilus influenzae. 2. Status post decortication for a left empyema. 3. Acute renal dysfunction with elevated creatinine. PLAN: 1. Given the persistent elevation of her white blood cell count, I will go ahead and add second antibiotic for Gram-negative coverage. We never got sensitivities back from the original Haemophilus as this is not ordinarily a resistant bacteria. 2. MRI felt clinically indicated by the primary team. Job ID: [id number]
--- NOTE | 2018-06-16 12:50 | PRG ---
DATE OF SERVICE: 06/16/2018 SUBJECTIVE: A 63-year-old female, being seen for acute kidney disease. The patient denies any nausea, vomiting, or chest pain. OBJECTIVE: CONSTITUTIONAL: The patient is alert and awake. VITAL SIGNS: Afebrile, pulse 88, breathing 16, and blood pressure 164/82. GENERAL APPEARANCE AND MENTAL STATUS: Fair. HEAD/NECK: Normocephalic. Atraumatic. EYES: EOMI. No deformity. EARS: Clear. No ulcers. NOSE: Intact. No lesions. MOUTH: Clear. No discharge. THROAT: Clear. No exudate. LUNGS: Clear. No crackles. CARDIAC: S1, S2. No rub. ABDOMEN: Benign. Bowel sounds positive. GENITALIA/RECTUM: Faust absent. BACK/EXTREMITIES: Edema 0+. NEUROLOGICAL: Alert and motor intact. SKIN: LYMPHATICS: LABORATORY DATA: Hemoglobin 12.7. Creatinine 2.3. ASSESSMENT: 1. Acute kidney injury. 2. Hypertension, stable. 3. Anemia, stable. 4. History of altered mentation. We would recommend MRI. Job ID: [id number]
--- NOTE | 2018-06-16 13:09 | PDOC.PN ---
- Subjective Encounter Start Date: 06/16/18 Encounter Start Time: 13:08 Patient seen and examined, no new issues or complaints, at bedside, all questions answered. - Objective Resuscitation Status - Order Detail: 06/10/18 17:01 Resuscitation Status Routine Resuscitation Status: FULL: Full Resuscitation Vital Signs & Weight: Vital Signs (12 hours) Temp Pulse Resp BP BP Pulse Ox 06/16/18 11:38 97.7 F 75 20 151/81 H 93 L 06/16/18 07:50 92 L 06/16/18 07:44 97.7 F 88 18 164/82 H 92 L 06/16/18 03:21 98.0 F 76 20 176/75 H 92 L 06/16/18 01:40 173/78 H Weight Admit Weight 229 lb 1.6 oz Weight 253 lb 1.6 oz Most Recent Monitor Data Heart Rate from ECG 78 NIBP 176/91 NIBP BP-Mean 119 Respiration from ECG 18 SpO2 96 I&O: 06/15/18 06/16/18 06/17/18 06:59 06:59 06:59 Intake Total 691 1305 Output Total 2060 1233 Balance -1369 72 Result Diagrams: 06/16/18 05:33 06/16/18 05:33 Additional Labs: Accuchecks 06/16/18 06/15/18 06/15/18 06:25 20:34 16:20 POC Glucose 168 H 254 H 253 H Phys Exam - Physical Examination Constitutional: NAD HEENT: PERRLA, moist MMs, sclera anicteric, TM's clear Neck: no nodes, no JVD, supple Respiratory: no wheezing, no rales, no rhonchi Cardiovascular: RRR, no significant murmur, no rub Gastrointestinal: soft, non-tender, no distention rotund Musculoskeletal: pulses present, edema present (1+) Dx/Plan (1) SUDEEP (acute kidney injury) Code(s): N17.9 - ACUTE KIDNEY FAILURE, UNSPECIFIED Status: Acute (2) Acute respiratory failure with hypoxia Code(s): J96.01 - ACUTE RESPIRATORY FAILURE WITH HYPOXIA Status: Acute (3) Bacteremia Code(s): R78.81 - BACTEREMIA Status: Acute (4) Metabolic acidosis Code(s): E87.2 - ACIDOSIS Status: Acute (5) Pharyngeal edema Code(s): J39.2 - OTHER DISEASES OF PHARYNX Status: Acute (6) Sepsis Code(s): A41.9 - SEPSIS, UNSPECIFIED ORGANISM Status: Acute Qualifiers: Sepsis type: Haemophilus influenzae Qualified Code(s): A41.3 - Sepsis due to Hemophilus influenzae - Plan * Aggressive PT * will obtain MRI given CT scan findings * target SBP 120-140mmHg * Renal function improving * labs in AM * F/U with MRI findings once done * no other changes in plan of care for now * case and plan d/w patient and at length, they understand and agree with this plan.
[2018-06-16] MEDS: HumaLOG 300 UNITS/3 ML VIAL SC PRN (13:44)
[2018-06-16] MEDS ORDERED: cloNIDine 0.1 MG TAB PO PRN (13:54)
[2018-06-16] MEDS: cefTRIAXone\\ROCEPHIN 2 GM in Sodium Chloride 0.9% 100 ML IVPB SCH (15:43)
--- NOTE | 2018-06-16 16:02 | PRG ---
DATE OF SERVICE: 06/16/2018 SUBJECTIVE: Ms. Benitez is sitting by the bedside, still feeling very weak. Chest tubes have been removed. Levofloxacin has been added to her regimen. OBJECTIVE: VITAL SIGNS: T-max 98, BP 150/81, pulse 75. LUNGS: Marked decrease in breath sounds on the left side. GENERAL: She is awake, alert, and oriented, somewhat apathetic. ABDOMEN: Soft, not tender, and Faust catheter has been removed and she is voiding spontaneously. LABORATORY DATA: White cell count is 27,000, hemoglobin 12, the bands went up to 21%. Creatinine is at 2.3. Repeat chest x-ray with small left effusion, right basilar opacity, removal of left thoracostomy tube, trace left apical pneumothorax. ASSESSMENT AND DISCUSSION: Severe Haemophilus influenzae infection and epiglottitis versus retropharyngeal abscess, possible mediastinitis, definitely empyema status post decortication. Still with quite a bit of bandemia and leukocytosis, increase Rocephin to 2 g q.12 hours. The patient is already on levofloxacin. May need repeat imaging study with CT of the neck and chest. Job ID: [id number]
[2018-06-16] MEDS: Atorvastatin Calcium 40 MG TAB PO SCH (20:01)
--- NOTE | 2018-06-16 22:34 | PDOC.CTH ---
Cardiology Progress Note - Subjective The pt seen and examined. No overnight events. No cardiac complaints. - Objective Vital Signs Temp Pulse Resp BP BP Pulse Ox 06/16/18 20:00 98.2 F 78 18 167/76 H 95 06/16/18 16:00 97.9 F 79 18 163/82 H 96 06/16/18 11:38 97.7 F 75 20 151/81 H 93 L Admit Weight 229 lb 1.6 oz Weight 253 lb 1.6 oz 06/15/18 06/16/18 06/17/18 06:59 06:59 06:59 Intake Total 691 1305 960 Output Total 2060 1233 1050 Balance -1369 72 -90 - Physical Examination General/Neuro: alert & oriented x3 Neck: no JVD present Lungs: CTA (diminished at bases) Heart: RRR Abdomen: soft Extremities: other: (No edema) - Telemetry Telemetry Rhythm: SR 70s - Labs Result Diagrams: 06/16/18 05:33 06/16/18 05:33 Troponin/CKMB Troponin I Less than 0.010 ng/mL (< 0.028) 06/11/18 00:22 - Assessment/Plan 1. New onset mild Chronic systolic HF - stable; Not on Diuretic. Start Coreg 6.25mg BID. 2. Haemophillus sp. bacteremia. - on IV abx, managed by ID service 3. Pleural effusion - stable 4. Mild pulmonary edema - stable. 5. SUDEEP on CKD - improving. 6. Left empyema - stable. 7. HTN - start Coreg 6.25mg BID 8. Sleep Apnea - on CPAP MAR reviewed Review of Systems - Review of Systems Constitutional: reports: no symptoms reported EENTM: reports: no symptoms reported Respiratory: reports: no symptoms reported Cardiac (ROS): reports: no symptoms reported ABD/GI: reports: no symptoms reported : reports: no symptoms reported Musculoskeletal: reports: no symptoms reported
[2018-06-16] MEDS ORDERED: Carvedilol 6.25 MG TAB PO SCH (23:00)
[2018-06-17] MEDS: cefTRIAXone\\ROCEPHIN 2 GM in Sodium Chloride 0.9% 100 ML IVPB SCH ×2 (03:10→15:56)
[2018-06-17 06:40] LABS: Anion Gap 15 mmol/L (10-20); BUN (Urea Nitrogen) 83 mg/dL (9.8-20.1); Calc. Creatinine Clearance 58 mL/min (70-130); Calcium 8.7 mg/dL (7.8-10.44); Carbon Dioxide 23 mmol/L (23-31); Chloride 101 mmol/L (98-107); Estimated GFR-MDRD 29; Glucose 167 mg/dL (80-115); Potassium 4.2 mmol/L (3.5-5.1); Sodium 135 mmol/L (136-145)
[2018-06-17 07:02] LABS: Band 15 % (5-11); Hemoglobin 10.9 g/dL (12.0-16.0); Lymphocytes 9 % (21-51); MDiff Complete? YES; Mean Corpuscular HGB CONC 33.6 g/dL (32.0-36.0); Mean Corpuscular Hemoglobin 27.9 pg (27.0-31.0); Mean Corpuscular Volume 82.8 fL (78.0-98.0); Mean Platelet Volume 11.1 fL (7.4-10.4); Metamyelocyte 3 % (0-0); Monocytes 2 % (0-10); Myelocyte 2 % (0-0); Neutrophil 69 % (42-75); Platelet Count 155 thou/uL (130-400); RBC Distribution Width 13.3 % (11.5-14.5); Red Blood Cell (RBC) Count 3.93 mill/uL (4.20-5.40); White Blood Cell (WBC) Count 22.6 thou/uL (4.8-10.8)
[2018-06-17] MEDS: Famotidine 20 MG TAB PO SCH (08:52)
[2018-06-17] MEDS: Benzonatate 100 MG CAP PO SCH ×2 (08:52→20:45)
[2018-06-17] MEDS: Carvedilol 6.25 MG TAB PO SCH ×2 (08:52→17:59)
[2018-06-17] MEDS: Aspirin 81 mg Enteric Coated Tablet PO SCH (08:52)
[2018-06-17] MEDS: guaiFENesin/DM ER PO SCH ×2 (08:52→20:45)
[2018-06-17] MEDS: Enoxaparin Sodium 40 MG/0.4 ML SYRINGE SC SCH (08:53)
[2018-06-17] MEDS: Nystatin 500,000 UNITS/5 ML UDCUP SSW SCH ×4 (08:53→20:46)
[2018-06-17] MEDS: Fluticasone Propionate Nasal Spray 16 gm Bottle NASAL SCH ×2 (08:53→22:23)
--- NOTE | 2018-06-17 09:42 | RAD ---
CHEST 1 VIEW: Date: 06/17/18 HISTORY: Dyspnea. Follow-up. COMPARISON: 06/16/18. FINDINGS: Cardiac silhouette is magnified by projection and partially obscured by persistent left basilar atele ctasis. Mediastinum is midline. Pulmonary vasculature accentuated by shallow inspiration. Tiny left a pical pneumothorax is unchanged. Small amount of left chest wall gas. No new infiltrate. IMPRESSION: Tiny left apical pneumothorax and other findings are stable. POS: [facility]
--- NOTE | 2018-06-17 10:57 | PDOC.PN ---
- Subjective Encounter Start Date: 06/17/18 Encounter Start Time: 10:55 Patient seen and examined, no new issues or complaints, all questions answered. - Objective Resuscitation Status - Order Detail: 06/10/18 17:01 Resuscitation Status Routine Resuscitation Status: FULL: Full Resuscitation Vital Signs & Weight: Vital Signs (12 hours) Temp Pulse Resp BP BP BP Pulse Ox 06/17/18 07:50 98.1 F 67 18 164/73 H 95 06/17/18 05:45 171/75 H 06/17/18 04:37 186/94 H 06/17/18 04:00 97.9 F 72 20 93 L 06/16/18 23:04 176/80 H 176/80 H Weight Admit Weight 229 lb 1.6 oz Weight 250 lb 14.4 oz Most Recent Monitor Data Heart Rate from ECG 78 NIBP 176/91 NIBP BP-Mean 119 Respiration from ECG 18 SpO2 96 I&O: 06/16/18 06/17/18 06/18/18 06:59 06:59 06:59 Intake Total 1305 1780 Output Total 1233 2150 Balance 72 -370 Result Diagrams: 06/17/18 05:50 06/17/18 05:50 Additional Labs: Accuchecks 06/17/18 06/16/18 06/16/18 05:29 20:36 17:59 POC Glucose 170 H 142 H 144 H 06/16/18 13:04 POC Glucose 220 H Phys Exam - Physical Examination Constitutional: NAD obese HEENT: PERRLA, moist MMs, sclera anicteric Neck: no nodes, no JVD, supple Respiratory: no wheezing, no rales, no rhonchi Cardiovascular: RRR, no significant murmur, no rub Gastrointestinal: soft, non-tender, no distention, positive bowel sounds Musculoskeletal: pulses present, edema present (trace) Dx/Plan (1) SUDEEP (acute kidney injury) Code(s): N17.9 - ACUTE KIDNEY FAILURE, UNSPECIFIED Status: Acute (2) Acute respiratory failure with hypoxia Code(s): J96.01 - ACUTE RESPIRATORY FAILURE WITH HYPOXIA Status: Acute (3) Bacteremia Code(s): R78.81 - BACTEREMIA Status: Acute (4) Metabolic acidosis Code(s): E87.2 - ACIDOSIS Status: Acute (5) Pharyngeal edema Code(s): J39.2 - OTHER DISEASES OF PHARYNX Status: Acute (6) Sepsis Code(s): A41.9 - SEPSIS, UNSPECIFIED ORGANISM Status: Acute Qualifiers: Sepsis type: Haemophilus influenzae Qualified Code(s): A41.3 - Sepsis due to Hemophilus influenzae - Plan * MRI pending for today * no other changes in plan * cont abx for now, will repeat labs in AM * cont wound care * repeat CXR in AM
[2018-06-17] MEDS ORDERED: Lorazepam 2 MG/ML VIAL SLOW IVP SCH (11:00)
--- NOTE | 2018-06-17 11:43 | PRG ---
DATE OF SERVICE: 06/17/2018 SUBJECTIVE: The patient was headed down the MRI. I was able to talk to her in the brian. She actually feels a little bit better except she is coughing up sputum. OBJECTIVE: VITAL SIGNS: On exam, temperature is 98.1, pulse is 67, respirations 18, O2 sat 95% on 2 L, and blood pressure 164/73. HEENT: Unremarkable. NECK: No JVD. LUNGS: Slightly diminished breath sounds in the left base. CARDIAC: S1 and S2, regular. ABDOMEN: Soft. EXTREMITIES: No edema. IMAGING DATA: Her x-ray shows a very tiny left apical pneumothorax. There is some left basilar atelectasis/infiltrate. LABORATORY DATA: White blood cell count 22.6, which is down; hemoglobin 10.9; hematocrit 32.5; and platelet count 155. Sodium 135, potassium 4.2, chloride 101, CO2 of 23, BUN 83, creatinine 1.7, and glucose 167. ASSESSMENT: 1. Sepsis secondary to Haemophilus influenzae. 2. Status post decortication for left empyema. 3. Acute renal dysfunction. PLAN: We have seen improvement in her white blood cell count, BUN, and creatinine. I think based on this, she is finally starting to respond to the antibiotics. I think the addition of Levaquin yesterday probably helped. She needs to continue close monitoring in the hospital for the time being. Her steroids have been stopped. Job ID: [id number]
--- NOTE | 2018-06-17 14:51 | PRG ---
DATE OF SERVICE: 06/17/2018 SUBJECTIVE: A 63-year-old female, being seen for acute kidney injury. The patient denies any nausea, vomiting, or chest pain. OBJECTIVE: GENERAL: The patient is awake and alert. VITAL SIGNS: Afebrile, pulse 82, breathing 16, blood pressure 159/95. GENERAL APPEARANCE AND MENTAL STATUS: Fair. HEAD/NECK: Normocephalic. Atraumatic. EYES: EOMI. No deformity. EARS: Clear. No ulcers. NOSE: Intact. No lesions. MOUTH: Clear. No discharge. THROAT: Clear. No exudate. LUNGS: Clear. No crackles. CARDIAC: S1, S2. No rub. ABDOMEN: Benign. Bowel sounds positive. GENITALIA/RECTUM: Faust absent. BACK/EXTREMITIES: Edema 0+. NEUROLOGICAL: Alert and motor intact. SKIN: LYMPHATICS: LABORATORY DATA: Hemoglobin 10.9. Creatinine 1.7. ASSESSMENT AND PLAN: 1. Acute kidney injury with chronic kidney disease, stable. 2. Hypertension, stable. 3. Anemia, stable. 4. Medications based on GFR appropriate. Job ID: [id number]
--- NOTE | 2018-06-17 15:45 | MRI ---
MRI BRAIN WITHOUT CONTRAST: HISTORY: Stroke-like symptoms. COMPARISON: CT brain from 06/15/2018. FINDINGS: On the diffusion-weighted imaging sequence, there are no abnormal areas of diffusion restriction. Th is is confirmed on the ADC map. On the susceptibility imaging sequence, there are no abnormal areas of hemorrhage. There are mild microvascular ischemic changes. Exam is severely limited due to motion artifact. The corpus callosum is normal. Marrow signal is normal. No midline shift or mass effect. No hydrocephalus. IMPRESSION: No acute hemorrhage or infarction. CODE CR (DR. SHERIFF AT 2:18 PM) POS: [facility]
--- NOTE | 2018-06-17 17:10 | PDOC.CTH ---
Cardiology Progress Note - Subjective The pt seen and examined. No overnight events. No cardiac complaints. she is more lethergic per family. Had MRI brain today. - Objective Vital Signs Temp Pulse Resp BP BP Pulse Ox 06/17/18 15:51 98.4 F 72 20 172/78 H 94 L 06/17/18 12:00 68 20 159/95 H 95 06/17/18 08:25 95 06/17/18 07:50 98.1 F 67 18 164/73 H 95 06/17/18 05:45 171/75 H Admit Weight 229 lb 1.6 oz Weight 250 lb 14.4 oz 06/16/18 06/17/18 06/18/18 06:59 06:59 06:59 Intake Total 1305 1780 Output Total 1233 2150 Balance 72 -370 - Physical Examination General/Neuro: alert & oriented x3 Neck: no JVD present Lungs: other: (diminished at bases) Abdomen: soft Extremities: other: (No edema) - Telemetry Telemetry Rhythm: SR - Labs Result Diagrams: 06/18/18 05:16 06/18/18 05:16 Troponin/CKMB Troponin I Less than 0.010 ng/mL (< 0.028) 06/11/18 00:22 - Assessment/Plan 1. New onset mild Chronic systolic HF - stable; Not on Diuretic. On Coreg 6.25mg BID. Not on HARRIET/ARB due to hx of CKD 2. Haemophillus sp. bacteremia. - on IV abx, managed by ID service 3. Pleural effusion - stable 4. Mild pulmonary edema - stable. 5. SUDEEP on CKD - improving. 6. Left empyema - stable. 7. HTN - start Norvasc 5mg QD from tonight 8. Sleep Apnea - on CPAP MAR reviewed Pt. seen and eval. by me. I agree with the A/P by the CAMPUS AIDE. Chest wheezing. RRR, No edema. Review of Systems - Review of Systems Constitutional: reports: see HPI, weakness EENTM: reports: see HPI Respiratory: reports: see HPI Cardiac (ROS): reports: see HPI ABD/GI: reports: see HPI
[2018-06-17] MEDS ORDERED: Amlodipine 5 MG TAB PO SCH (20:00)
[2018-06-17] MEDS: Atorvastatin Calcium 40 MG TAB PO SCH (20:45)
--- NOTE | 2018-06-18 01:58 | CON ---
DATE OF CONSULTATION: 06/17/2018 NEUROLOGY CONSULTATION REASON FOR REFERRAL: Possible stroke. REFERRING PHYSICIAN: Michele Tatum MD, sap data analyst. HISTORY OF PRESENT ILLNESS: This is a 63-year-old female who started getting sick about 2 days after [place] with severe sore throat. She sought medical treatment and was diagnosed with Strep and started on some antibiotics, but she did get worse and then started getting chest pain. She came to the hospital at [facility] on 06/10/2018. She was found to have pneumonia and pleural effusion. She mentioned to one of the doctors a few days ago that she felt confused. A CT of the head was done, which showed equivocal finding of cerebellar stroke versus volume averaging, so an MRI was ordered and was just completed now and the report is pending. PAST MEDICAL HISTORY: Her chronic medical problems include hypertension, sleep apnea, borderline diabetes. SOCIAL HISTORY: She lives with her . She does not smoke or drink. FAMILY HISTORY: Positive for heart disease and CVA. REVIEW OF SYSTEMS: A 14-point review of systems is normal, negative except for the present illness. PHYSICAL EXAMINATION: VITAL SIGNS: Temperature 98.4, pulse is 72, respiratory rate 20, O2 saturation is 94%, blood pressure 172/78. HEENT: Shows that she is having some cough. LUNGS: Show some upper airway rhonchi sounds, mostly over the left chest. HEART: Rhythm is regular. ABDOMEN: Not distended. EXTREMITIES: Trace edema. Joints, no swelling. SKIN: No rashes. NEUROLOGICAL: Note that she was sedated with Ativan IV for her MRI recently. She is still very groggy from that; however, she is arousable and follows commands. Cranial nerves 2 through 12 tested normally. Pupils are 2 mm and reactive. There is no nystagmus. Tongue protrudes in the midline. Palate elevates symmetrically with phonation. Motor 5/5 strength. DTRs 1+. Toes downgoing. Sensation is normal to light touch. Coordination, [id number] is intact. DATA: Review of results showed that she had MRI of the brain just completed. It was normal. There was no stroke. This was reviewed and also discussed with the radiologist who read the test. Other labs showed that she had thoracentesis on 06/13/2018, which showed 107,000 WBCs, 94% neutrophils. Glucose was 22. Microbiology showed that blood culture grew Haemophilus influenzae. IMPRESSION: No sign of any acute stroke. She is improving neurologically. She is currently groggy, most likely due to the medicine that she received which was Ativan 2 mg IV for her MRI of the brain. Her pulmonary and upper respiratory infections are being treated. There is no sign of CVA or central nervous system infection. Discussed with the patient and her . No further Neurology recommendations at this time. We will sign off. Please reconsult Neurology if any more neurological problems or questions are needed. Job ID: [id number]
[2018-06-18] MEDS: cefTRIAXone\\ROCEPHIN 2 GM in Sodium Chloride 0.9% 100 ML IVPB SCH ×2 (02:56→16:36)
[2018-06-18 05:56] LABS: Anion Gap 14 mmol/L (10-20); BUN (Urea Nitrogen) 65 mg/dL (9.8-20.1); Calc. Creatinine Clearance 79 mL/min (70-130); Calcium 8.9 mg/dL (7.8-10.44); Carbon Dioxide 25 mmol/L (23-31); Chloride 102 mmol/L (98-107); Estimated GFR-MDRD 41; Glucose 139 mg/dL (80-115); Potassium 4.1 mmol/L (3.5-5.1); Sodium 137 mmol/L (136-145)
[2018-06-18 06:56] LABS: Hemoglobin 11.4 g/dL (12.0-16.0); Mean Corpuscular HGB CONC 33.3 g/dL (32.0-36.0); Mean Corpuscular Hemoglobin 27.8 pg (27.0-31.0); Mean Corpuscular Volume 83.5 fL (78.0-98.0); Mean Platelet Volume 11.1 fL (7.4-10.4); Platelet Count 170 thou/uL (130-400); RBC Distribution Width 13.5 % (11.5-14.5); White Blood Cell (WBC) Count 21.5 thou/uL (4.8-10.8)
[2018-06-18 07:47] LABS: Band 24 % (5-11); Lymphocytes 9 % (21-51); MDiff Complete? YES; Monocytes 6 % (0-10); Neutrophil 60 % (42-75); Polychromasia SLIGHT = 2-3 cells (100X) (0-2/hpf); Reactive Lymphocytes 1 % (0-10)
--- NOTE | 2018-06-18 08:47 | RAD ---
SINGLE VIEW OF THE CHEST: Comparison: 06-17-18 History: Ventilated patient with respiratory failure. FINDINGS: Single view of the chest shows an enlarged but stable cardiomediastinal silhouette. There is no evide nce of consolidation or mass. There may be a small left pleural effusion. IMPRESSION: Possible small left pleural effusion. POS: [facility]
[2018-06-18] MEDS: Nystatin 500,000 UNITS/5 ML UDCUP SSW SCH ×4 (09:00→21:55)
--- NOTE | 2018-06-18 10:28 | PRG ---
DATE OF SERVICE: 06/18/2018 SUBJECTIVE: She still feels bad and was somewhat confused yesterday after getting Ativan for an MRI. Sensorium is clear today. OBJECTIVE: VITAL SIGNS: Temperature 98.1, pulse 79, respirations 20, O2 saturation 97% on 1 L, and blood pressure 171/77. HEENT: Unremarkable. NECK: No JVD. LUNGS: Slightly diminished breath sounds in the left base compared to right. CARDIAC: S1 and S2. Regular. ABDOMEN: Soft. EXTREMITIES: No edema. LABORATORY DATA: White blood cell count 21.5, hematocrit 34.2, and platelet count 170. Sodium 137, potassium 4.1, BUN 65, creatinine 1.3, and glucose 139. ASSESSMENT: The patient is definitely getting better laboratory rodriguez. It is somewhat discouraging that she continues to feel this poorly. She seems to be on adequate treatment for her underlying infection and her kidney function and white count continue to improve. PLAN: Continue with the antibiotics and push physical therapy as much as possible. I will go ahead and stop daily x-rays. She may need to be evaluated for rehabilitative placement. Job ID: [id number]
[2018-06-18] MEDS: guaiFENesin/DM ER PO SCH ×2 (11:30→21:55)
[2018-06-18] MEDS: Amlodipine 5 MG TAB PO SCH (11:30)
[2018-06-18] MEDS: Famotidine 20 MG TAB PO SCH (11:30)
[2018-06-18] MEDS: Benzonatate 100 MG CAP PO SCH ×2 (11:30→21:55)
[2018-06-18] MEDS: Aspirin 81 mg Enteric Coated Tablet PO SCH (11:31)
[2018-06-18] MEDS: Carvedilol 6.25 MG TAB PO SCH ×2 (11:31→16:36)
[2018-06-18] MEDS: Enoxaparin Sodium 40 MG/0.4 ML SYRINGE SC SCH (11:31)
[2018-06-18] MEDS: Fluticasone Propionate Nasal Spray 16 gm Bottle NASAL SCH ×2 (11:32→21:55)
--- NOTE | 2018-06-18 13:17 | PDOC.PN ---
- Subjective Encounter Start Date: 06/18/18 Encounter Start Time: 07:40 Pt seen for followup re: bacteremia. Feels slightly better. - Objective Resuscitation Status - Order Detail: 06/10/18 17:01 Resuscitation Status Routine Resuscitation Status: FULL: Full Resuscitation MAR Reviewed: Yes Vital Signs & Weight: Vital Signs (12 hours) Temp Pulse Resp BP BP Pulse Ox 06/18/18 11:31 171/77 H 06/18/18 11:30 79 06/18/18 08:05 98.1 F 79 20 171/77 H 97 06/18/18 04:00 98.1 F 76 20 172/80 H 94 L Weight Admit Weight 229 lb 1.6 oz Weight 247 lb 14.4 oz Most Recent Monitor Data Heart Rate from ECG 78 NIBP 176/91 NIBP BP-Mean 119 Respiration from ECG 18 SpO2 96 I&O: 06/17/18 06/18/18 06/19/18 06:59 06:59 06:59 Intake Total 1780 480 Output Total 2150 1050 Balance -370 -570 Result Diagrams: 06/19/18 04:08 06/19/18 04:08 Additional Labs: Accuchecks 06/17/18 06/17/18 20:10 17:21 POC Glucose 131 H 113 H EKG Reviewed by me: Yes (Tele: NSR) Phys Exam - Physical Examination Morbid obesity HEENT: moist MMs Neck: supple Respiratory: clear to auscultation bilateral Cardiovascular: RRR Gastrointestinal: soft Neurological: moves all 4 limbs Psychiatric: normal affect Dx/Plan (1) Bacteremia Code(s): R78.81 - BACTEREMIA Status: Acute Comment: continue IV ceftriaxone and levofloxacin (2) SUDEEP (acute kidney injury) Code(s): N17.9 - ACUTE KIDNEY FAILURE, UNSPECIFIED Status: Acute Comment: creatinine improved to 1.31 today (3) Empyema lung Code(s): J86.9 - PYOTHORAX WITHOUT FISTULA Status: Acute Comment: s/p thoracoscopy with pulmonary decortication - Plan * . Review of Systems - Review of Systems Respiratory: Cough, Sputum. negative: Dry, Shortness of Breath, Hemoptysis, SOB with Excertion, Pleuritic Pain, Wheezing Cardiovascular: negative: chest pain, palpitations, orthopnea, paroxysmal nocturnal dyspnea, edema, light headedness - Medications/Allergies Allergies/Adverse Reactions: Allergies Allergy/AdvReac Type Severity Reaction Status Date / Time Penicillins Allergy Verified 06/10/18 21:44 sulfamethoxazole Allergy Verified 06/10/18 21:44 [From Bactrim] trimethoprim [From Bactrim] Allergy Verified 06/10/18 21:44 Medications: Current Medications Acetaminophen (Tylenol) 650 mg PO Q4H PRN PRN Reason: Headache/Fever/Mild Pain (1-3) Amlodipine Besylate (Norvasc) 5 mg PO DAILY [facility] Last Admin: 06/18/18 11:30 Dose: 5 mg Aspirin (Ecotrin) 81 mg PO DAILY [facility] Last Admin: 06/18/18 11:31 Dose: 81 mg Atorvastatin Calcium (Lipitor) 40 mg PO HS [facility] Last Admin: 06/17/18 20:45 Dose: 40 mg Benzonatate (Tessalon) 100 mg PO Q12HR [facility] Last Admin: 06/18/18 11:30 Dose: 100 mg Carvedilol (Coreg) 6.25 mg PO BID-[facility] Last Admin: 06/18/18 11:31 Dose: 6.25 mg Clonidine (Catapres) 0.1 mg PO Q4H PRN PRN Reason: FOR SBP > 170mmHg Last Admin: 06/17/18 04:37 Dose: 0.1 mg Dextrose/Water (Dextrose 50%) 25 gm SLOW IVP PRN PRN PRN Reason: Hypoglycemia Enoxaparin Sodium (Lovenox) 40 mg SC 0900 [facility] Last Admin: 06/18/18 11:31 Dose: 40 mg Famotidine (Pepcid) 20 mg PO DAILY [facility] Last Admin: 06/18/18 11:30 Dose: 20 mg Fluticasone Propionate (Flonase Nasal [place]) 1 gm NASAL BID [facility] Last Admin: 06/18/18 11:32 Dose: 1 spray Glucagon (Glucagon) 1 mg IM PRN PRN PRN Reason: Hypoglycemia Guaifenesin/Dextromethorphan (Mucinex Dm) 1 tab PO BID [facility] Last Admin: 06/18/18 11:30 Dose: 1 tab Dextrose/Water (D5w) 1,000 mls @ 0 mls/hr IV .Q0M PRN PRN Reason: Hypoglycemia Levofloxacin 750 mg/ Device 150 mls @ 100 mls/hr IVPB Q2D@1100 [facility] Last Admin: 06/18/18 11:32 Dose: 150 mls Ceftriaxone Sodium 2 gm/ (Sodium Chloride) 100 mls @ 200 mls/hr IVPB 0300,1500 [facility] Last Admin: 06/18/18 02:56 Dose: 100 mls Insulin Human Lispro (Humalog) 0 units SC .MILD SLIDING SCALE PRN PRN Reason: Mild Correctional Scale Last Admin: 06/16/18 13:44 Dose: 3 unit Nystatin (Mycostatin) 500,000 units SSW QID [facility] Last Admin: 06/18/18 11:33 Dose: 500,000 units Polyethylene Glycol (Miralax) 17 gm PO DAILYPRN PRN PRN Reason: Constipation Last Admin: 06/12/18 13:15 Dose: 17 gm Sodium Chloride (Flush - Normal Saline) 10 ml IVF Q12HR [facility] Last Admin: 06/18/18 11:33 Dose: 10 ml Sodium Chloride (Flush - Normal Saline) 10 ml IVF PRN PRN PRN Reason: Saline Flush Last Admin: 06/17/18 03:13 Dose: 10 ml
--- NOTE | 2018-06-18 17:48 | PRG ---
DATE OF SERVICE: 06/18/2018 SUBJECTIVE: Josiane in bed, had a bath. Feels tired at this time. No headaches. Little bit of chest pain in the midline. No abdominal pain. Had bowel movement, which was soft and urination is at the bedside commode. OBJECTIVE: LUNGS: Diminished breath sounds left side. CARDIAC: S1 and S2, regular rate. ABDOMEN: Soft, not distended. EXTREMITIES: Moves extremities equally. LABORATORY DATA: White cell count 21,000, hemoglobin 11, platelets 170, 60% neutrophils, 24% bands. Creatinine 1.31, which is significantly decreased. No new microbiology info. Repeat chest x-ray with small pleural effusion and enlarged cardiomediastinal silhouette. ASSESSMENT AND DISCUSSION: Severe Haemophilus influenzae infection with either epiglottitis or retropharyngeal inflammatory process. Possibility of mediastinitis considered. Empyema has been drained and treated with decortication. The patient continues on two drug coverage for Haemophilus. If bands do not decrease, may have to consider repeat CT of the chest and neck with contrast. Job ID: [id number]
--- NOTE | 2018-06-18 18:56 | PDOC.CTH ---
Cardiology Progress Note - Subjective Doing better. Breathing better every day but slow improvement. - Objective Vital Signs Temp Pulse Pulse Resp BP BP BP 06/18/18 16:36 141/92 H 06/18/18 15:55 98.5 F 77 20 141/92 H 06/18/18 14:35 77 141/92 H 06/18/18 11:31 171/77 H 06/18/18 11:30 79 06/18/18 08:05 98.1 F 79 20 171/77 H Pulse Ox 06/18/18 16:36 06/18/18 15:55 95 06/18/18 14:35 06/18/18 11:31 06/18/18 11:30 06/18/18 08:05 97 Admit Weight 229 lb 1.6 oz Weight 247 lb 14.4 oz 06/17/18 06/18/18 06/19/18 06:59 06:59 06:59 Intake Total 1780 480 Output Total 2150 1050 Balance -370 -570 - Physical Examination General/Neuro: alert & oriented x3, NAD Neck: no JVD present Lungs: unlabored respirations Heart: RRR Abdomen: NT/ND Extremities: + edema B (trace) - Telemetry Telemetry Rhythm: NSR - Labs Result Diagrams: 06/18/18 05:16 06/18/18 05:16 Troponin/CKMB Troponin I Less than 0.010 ng/mL (< 0.028) 06/11/18 00:22 - Assessment/Plan 1. Haemophillus sp. bacteremia. 2. New onset mild LV dysfunction. 3. Sepsis. 4. Pleural effusion. 5. Mild pulmonary edema. 6. SUDEEP on CKD. Likely ATN. 7. Left empyema.. PLAN: - IV abx per primary team. - Will repeat echo tomorrow. - Will follow.
--- NOTE | 2018-06-18 19:15 | PRG ---
DATE OF SERVICE: 06/18/2018 SUBJECTIVE: Patient was seen and examined at bedside and overnight events noted. Patient denies any shortness of breath or chest pain or palpitation. No history of nausea or vomiting or diarrhea or fever or chills or cramps. OBJECTIVE: GENERAL: This is an elderly female, in no acute distress. VITAL SIGNS: Temperature 98.5, heart rate 77, respiratory rate 22, and blood pressure 141/92. HEENT: Atraumatic, normocephalic. Oral mucosa is moist NECK: Supple. CARDIOVASCULAR: S1, S2 heard. Rate and rhythm regular. RESPIRATORY: Clear to auscultation. GASTROINTESTINAL: Abdomen is soft. MUSCULOSKELETAL: No tenderness. No edema. DERMATOLOGIC: No skin rash. NEUROLOGIC: Alert and awake and oriented X3. No focal neurologic deficits. Moving all the extremities. PSYCHIATRIC: Mood and affect normal. LABORATORY DATA: Potassium is 4.9, BUN is 65, and creatinine is 1.3. ASSESSMENT AND PLAN: 1. Acute kidney injury on chronic renal disease. 2. Edema. 3. Hypertension. 4. Anemia. Prognosis is guarded. We will follow. Job ID: [id number]
[2018-06-18] MEDS ORDERED: Lorazepam 2 MG/ML VIAL SLOW IVP SCH (20:30)
[2018-06-18] MEDS: Atorvastatin Calcium 40 MG TAB PO SCH (21:55)
[2018-06-19] MEDS: cefTRIAXone\\ROCEPHIN 2 GM in Sodium Chloride 0.9% 100 ML IVPB SCH ×2 (02:04→15:01)
[2018-06-19 05:41] LABS: Anion Gap 13 mmol/L (10-20); BUN (Urea Nitrogen) 45 mg/dL (9.8-20.1); Calc. Creatinine Clearance 92 mL/min (70-130); Calcium 8.9 mg/dL (7.8-10.44); Carbon Dioxide 27 mmol/L (23-31); Chloride 101 mmol/L (98-107); Estimated GFR-MDRD 50; Glucose 115 mg/dL (80-115); Sodium 137 mmol/L (136-145)
[2018-06-19 06:06] LABS: Band 15 % (5-11); Hemoglobin 11.7 g/dL (12.0-16.0); Lymphocytes 5 % (21-51); MDiff Complete? YES; Mean Corpuscular HGB CONC 33.3 g/dL (32.0-36.0); Mean Corpuscular Hemoglobin 28.2 pg (27.0-31.0); Mean Corpuscular Volume 84.7 fL (78.0-98.0); Mean Platelet Volume 11.3 fL (7.4-10.4); Metamyelocyte 3 % (0-0); Monocytes 8 % (0-10); Myelocyte 1 % (0-0); Neutrophil 68 % (42-75); Platelet Count 198 thou/uL (130-400); RBC Distribution Width 13.7 % (11.5-14.5); Red Blood Cell (RBC) Count 4.16 mill/uL (4.20-5.40); White Blood Cell (WBC) Count 22.9 thou/uL (4.8-10.8)
--- NOTE | 2018-06-19 10:19 | PRG ---
DATE OF SERVICE: 06/19/2018 SUBJECTIVE: She is much more alert than she has been. She actually got up and walked yesterday. OBJECTIVE: VITAL SIGNS: Temperature 98.7, pulse 77, respirations 18, O2 saturation 92% on 2 L, and blood pressure 139/68. HEENT: Unremarkable. NECK: No JVD. LUNGS: Fairly clear. CARDIAC: S1 and S2, regular. ABDOMEN: Soft. EXTREMITIES: No edema. LABORATORY DATA: White blood cell count 22.9, hematocrit 35.2, and platelet count 198. Sodium 137, potassium 4, chloride 101, CO2 of 27, BUN 45, creatinine 1.1, glucose 115. ASSESSMENT: 1. Improved septicemia from Haemophilus influenzae. 2. Status post empyema that was decorticated. 3. Improved renal insufficiency. PLAN: I will add EzPAP to her nebs as she is still having difficulty coughing up secretions. I will also intensify the frequency and see if that does not help. Job ID: [id number]
[2018-06-19] MEDS: Enoxaparin Sodium 40 MG/0.4 ML SYRINGE SC SCH (10:54)
[2018-06-19] MEDS: Carvedilol 6.25 MG TAB PO SCH ×2 (10:54→16:41)
[2018-06-19] MEDS: Nystatin 500,000 UNITS/5 ML UDCUP SSW SCH ×4 (10:54→21:30)
[2018-06-19] MEDS: Amlodipine 5 MG TAB PO SCH (10:55)
[2018-06-19] MEDS: Aspirin 81 mg Enteric Coated Tablet PO SCH (10:55)
[2018-06-19] MEDS: Famotidine 20 MG TAB PO SCH (10:55)
[2018-06-19] MEDS: guaiFENesin/DM ER PO SCH ×2 (10:55→21:30)
[2018-06-19] MEDS: Benzonatate 100 MG CAP PO SCH ×2 (10:55→21:30)
[2018-06-19] MEDS: Fluticasone Propionate Nasal Spray 16 gm Bottle NASAL SCH ×2 (11:00→21:30)
--- NOTE | 2018-06-19 13:16 | PDOC.PN ---
- Subjective Encounter Start Date: 06/19/18 Encounter Start Time: 08:00 Pt seen for followup re; bacteremia. Denies chest pain or shortness fo breath. Cough and sputum+ - Objective Resuscitation Status - Order Detail: 06/10/18 17:01 Resuscitation Status Routine Resuscitation Status: FULL: Full Resuscitation Vital Signs & Weight: Vital Signs (12 hours) Temp Pulse Resp BP BP Pulse Ox 06/19/18 10:55 80 06/19/18 10:54 141/92 H 06/19/18 10:49 80 16 06/19/18 08:40 98.7 F 77 18 139/68 92 L 06/19/18 03:42 98.2 F 76 20 154/81 H 95 06/19/18 02:11 78 20 93 L Weight Admit Weight 229 lb 1.6 oz Weight 246 lb Most Recent Monitor Data Heart Rate from ECG 78 NIBP 176/91 NIBP BP-Mean 119 Respiration from ECG 18 SpO2 96 I&O: 06/18/18 06/19/18 06/20/18 06:59 06:59 06:59 Intake Total 480 500 Output Total 1050 800 Balance -570 -300 Result Diagrams: 06/19/18 04:08 06/19/18 04:08 Additional Labs: Accuchecks 06/19/18 06/19/18 06/18/18 11:06 05:42 20:22 POC Glucose 119 H 122 H 138 H 06/18/18 06/18/18 17:00 11:09 POC Glucose 123 H 173 H Phys Exam - Physical Examination Constitutional: NAD HEENT: moist MMs Neck: supple Respiratory: clear to auscultation bilateral Cardiovascular: RRR Gastrointestinal: soft Neurological: moves all 4 limbs Psychiatric: normal affect Dx/Plan (1) Bacteremia Code(s): R78.81 - BACTEREMIA Status: Acute Comment: on IV ceftriaxone and levofloxacin (2) Empyema lung Code(s): J86.9 - PYOTHORAX WITHOUT FISTULA Status: Acute Comment: s/p thoracoscopy with pulmonary decortication (3) SUDEEP (acute kidney injury) Code(s): N17.9 - ACUTE KIDNEY FAILURE, UNSPECIFIED Status: Resolved Comment : creatinine improved to 1.10 today (4) Acute metabolic encephalopathy Code(s): G93.41 - METABOLIC ENCEPHALOPATHY Status: Resolved - Plan * . Review of Systems - Review of Systems Constitutional: weakness Respiratory: Cough, Sputum. negative: Dry, Shortness of Breath, Hemoptysis, SOB with Excertion, Pleuritic Pain, Wheezing Cardiovascular: negative: chest pain, palpitations, orthopnea, paroxysmal nocturnal dyspnea, edema, light headedness - Medications/Allergies Allergies/Adverse Reactions: Allergies Allergy/AdvReac Type Severity Reaction Status Date / Time Penicillins Allergy Verified 06/10/18 21:44 sulfamethoxazole Allergy Verified 06/10/18 21:44 [From Bactrim] trimethoprim [From Bactrim] Allergy Verified 06/10/18 21:44 Medications: Current Medications Acetaminophen (Tylenol) 650 mg PO Q4H PRN PRN Reason: Headache/Fever/Mild Pain (1-3) Albuterol/Ipratropium (Duoneb) 3 ml EZPAP [id number] SCH Last Admin: 06/19/18 10:49 Dose: 3 ml Amlodipine Besylate (Norvasc) 5 mg PO DAILY [facility] Last Admin: 06/19/18 10:55 Dose: 5 mg Aspirin (Ecotrin) 81 mg PO DAILY [facility] Last Admin: 06/19/18 10:55 Dose: 81 mg Atorvastatin Calcium (Lipitor) 40 mg PO HS [facility] Last Admin: 06/18/18 21:55 Dose: 40 mg Benzonatate (Tessalon) 100 mg PO Q12HR [facility] Last Admin: 06/19/18 10:55 Dose: 100 mg Carvedilol (Coreg) 6.25 mg PO BID-[facility] Last Admin: 06/19/18 10:54 Dose: 6.25 mg Clonidine (Catapres) 0.1 mg PO Q4H PRN PRN Reason: FOR SBP > 170mmHg Last Admin: 06/17/18 04:37 Dose: 0.1 mg Dextrose/Water (Dextrose 50%) 25 gm SLOW IVP PRN PRN PRN Reason: Hypoglycemia Enoxaparin Sodium (Lovenox) 40 mg SC 0900 [facility] Last Admin: 06/19/18 10:54 Dose: 40 mg Famotidine (Pepcid) 20 mg PO DAILY [facility] Last Admin: 06/19/18 10:55 Dose: 20 mg Fluticasone Propionate (Flonase Nasal [place]) 1 gm NASAL BID [facility] Last Admin: 06/19/18 11:00 Dose: 1 spray Glucagon (Glucagon) 1 mg IM PRN PRN PRN Reason: Hypoglycemia Guaifenesin/Dextromethorphan (Mucinex Dm) 1 tab PO BID [facility] Last Admin: 06/19/18 10:55 Dose: 1 tab Dextrose/Water (D5w) 1,000 mls @ 0 mls/hr IV .Q0M PRN PRN Reason: Hypoglycemia Levofloxacin 750 mg/ Device 150 mls @ 100 mls/hr IVPB Q2D@1100 [facility] Last Admin: 06/18/18 11:32 Dose: 150 mls Ceftriaxone Sodium 2 gm/ (Sodium Chloride) 100 mls @ 200 mls/hr IVPB 0300,1500 [facility] Last Admin: 06/19/18 02:04 Dose: 100 mls Insulin Human Lispro (Humalog) 0 units SC .MILD SLIDING SCALE PRN PRN Reason: Mild Correctional Scale Last Admin: 06/16/18 13:44 Dose: 3 unit Nystatin (Mycostatin) 500,000 units SSW QID [facility] Last Admin: 06/19/18 10:54 Dose: 500,000 units Polyethylene Glycol (Miralax) 17 gm PO DAILYPRN PRN PRN Reason: Constipation Last Admin: 06/12/18 13:15 Dose: 17 gm Sodium Chloride (Flush - Normal Saline) 10 ml IVF Q12HR [facility] Last Admin: 06/18/18 21:56 Dose: 10 ml Sodium Chloride (Flush - Normal Saline) 10 ml IVF PRN PRN PRN Reason: Saline Flush Last Admin: 06/17/18 03:13 Dose: 10 ml
[2018-06-19 13:43] LABS: Actual Bicarbonate (HCO3a) 20.2 mEq/L (22-28); Analyzer IN Cardio OR; Base Excess (BEa) -6.8 mEq/L (-2.0 to +3.0); CO2 Tension 46.3 mmHg (35.0-45.0); Calcium, Ionized 1.04 mmol/L (1.12-1.30); Carboxyhemoglobin (COHb) 0.6 gm% (0.0-3.0); O2 Tension (PaO2) 153.2 mmHg (> 80.0); Potassium - ABG Lab 3.88 mmol/L (3.70-5.30); pH, Arterial 7.26 (7.35-7.45)
[2018-06-19 13:45] LABS: Puncture Site ALINE
--- NOTE | 2018-06-19 17:09 | PRG ---
DATE OF SERVICE: 06/19/2018 SUBJECTIVE: Patient was seen and examined at bedside and overnight events noted. Patient denies shortness of breath or cramps or chest pain or palpitation. No Nausea or vomiting or diarrhea or fever or chills. OBJECTIVE: GENERAL: This is a well-built female, in no apparent distress. VITAL SIGNS: Temperature 98.3, pulse 71, blood pressure 134/61. Musculoskeletal : No tenderness, No edema HEENT: Atraumatic normocephalic Neck: Supple Cardiovascular: S1S2 heard, Rate and rhythm regular Respiratory: Clear to auscultation Gastrointestinal: Abdomen is soft Dermatologic : No skin rash Neurologic: Alert and awake and oriented X3 No focal neurologic deficits. Moving all the extremities. Psychiatric: Mood and affect normal LABORATORY DATA: Potassium is 4.0, BUN is 45, creatinine is 1.1. ASSESSMENT AND PLAN: 1. Acute kidney injury, stable. Renal function is back to baseline. 2. Edema. 3. Hypertension. 4. Anemia. Renal function is stable. I will sign off. Please call back with any questions. Job ID: [id number] [facility]
--- NOTE | 2018-06-19 19:12 | PDOC.CTH ---
Cardiology Progress Note - Subjective Doing better every day. Coughing a lot more now, sputum is yellowish. - Objective Vital Signs Temp Pulse Resp BP BP Pulse Ox 06/19/18 16:41 134/61 06/19/18 15:05 99.3 F 71 20 134/61 91 L 06/19/18 14:25 80 16 06/19/18 10:55 80 06/19/18 10:54 141/92 H 06/19/18 10:49 80 16 06/19/18 08:40 98.7 F 77 18 139/68 92 L Admit Weight 229 lb 1.6 oz Weight 246 lb 06/18/18 06/19/18 06/20/18 06:59 06:59 06:59 Intake Total 480 500 Output Total 1050 800 Balance -570 -300 - Physical Examination General/Neuro: alert & oriented x3, NAD Neck: no JVD present Lungs: unlabored respirations Heart: RRR Abdomen: NT/ND Extremities: + edema B (Trace) - Telemetry Telemetry Rhythm: NSR - Labs Result Diagrams: 06/19/18 04:08 06/19/18 04:08 Troponin/CKMB Troponin I Less than 0.010 ng/mL (< 0.028) 06/11/18 00:22 - Assessment/Plan 1. Haemophillus sp. bacteremia. 2. New onset mild LV dysfunction, resolved, EF now at 60-65%. 3. Sepsis. 4. Pleural effusion. 5. Mild pulmonary edema. 6. SUDEEP on CKD. Likely ATN. 7. Left empyema.. PLAN: - IV abx per primary team. - Repeat echo shows normalized EF at 60-65%. - Will follow.
[2018-06-19] MEDS: Melatonin 3 MG TAB PO PRN (21:30)
[2018-06-19] MEDS: Atorvastatin Calcium 40 MG TAB PO SCH (21:30)
[2018-06-20] MEDS: cefTRIAXone\\ROCEPHIN 2 GM in Sodium Chloride 0.9% 100 ML IVPB SCH ×3 (03:38→15:08)
[2018-06-20 05:47] LABS: Anion Gap 11 mmol/L (10-20); BUN (Urea Nitrogen) 31 mg/dL (9.8-20.1); Calc. Creatinine Clearance 114 mL/min (70-130); Calcium 8.7 mg/dL (7.8-10.44); Carbon Dioxide 31 mmol/L (23-31); Chloride 98 mmol/L (98-107); Estimated GFR-MDRD 64; Glucose 141 mg/dL (80-115); Potassium 3.8 mmol/L (3.5-5.1); Sodium 136 mmol/L (136-145)
[2018-06-20 07:06] LABS: Hemoglobin 11.2 g/dL (12.0-16.0); Mean Corpuscular HGB CONC 32.3 g/dL (32.0-36.0); Mean Corpuscular Hemoglobin 27.5 pg (27.0-31.0); Mean Corpuscular Volume 85.2 fL (78.0-98.0); Mean Platelet Volume 10.2 fL (7.4-10.4); Platelet Count 251 thou/uL (130-400); RBC Distribution Width 13.8 % (11.5-14.5); Red Blood Cell (RBC) Count 4.06 mill/uL (4.20-5.40); White Blood Cell (WBC) Count 23.9 thou/uL (4.8-10.8)
[2018-06-20 08:02] LABS: Band 15 % (5-11); Lymphocytes 7 % (21-51); MDiff Complete? YES; Metamyelocyte 1 % (0-0); Monocytes 3 % (0-10); Neutrophil 71 % (42-75); Polychromasia SLIGHT = 2-3 cells (100X) (0-2/hpf); Reactive Lymphocytes 3 % (0-10)
[2018-06-20] MEDS: Benzonatate 100 MG CAP PO SCH ×2 (08:28→21:03)
[2018-06-20] MEDS: Famotidine 20 MG TAB PO SCH (08:29)
[2018-06-20] MEDS: Aspirin 81 mg Enteric Coated Tablet PO SCH (08:29)
[2018-06-20] MEDS: Nystatin 500,000 UNITS/5 ML UDCUP SSW SCH ×4 (08:29→21:03)
[2018-06-20] MEDS: Enoxaparin Sodium 40 MG/0.4 ML SYRINGE SC SCH (08:29)
[2018-06-20] MEDS: Amlodipine 5 MG TAB PO SCH (08:29)
[2018-06-20] MEDS: Carvedilol 6.25 MG TAB PO SCH ×2 (08:29→16:41)
[2018-06-20] MEDS: guaiFENesin/DM ER PO SCH ×2 (08:29→21:03)
[2018-06-20] MEDS: Fluticasone Propionate Nasal Spray 16 gm Bottle NASAL SCH ×2 (08:31→21:03)
--- NOTE | 2018-06-20 10:10 | PRG ---
DATE OF SERVICE: 06/20/2018 SUBJECTIVE: The patient is not getting up out of bed. Apparently Physical Therapy has not been working with the patient, even though that has been ordered. OBJECTIVE: VITAL SIGNS: Her temperature is 98.4, pulse 80, respiratory rate 20, O2 sat 95% on 2 L, blood pressure 158/69. HEENT: Unremarkable. NECK: No JVD. CHEST: Clear. CARDIAC: S1 and S2, regular. ABDOMEN: Soft. EXTREMITIES: No edema. LABORATORY DATA: White blood cell count 23.9, hematocrit 34.6, platelet count 251. Sodium 136, potassium 3.8, BUN 31, creatinine 0.8 glucose 141. ASSESSMENT: 1. Haemophilus influenzae with empyema. 2. Cardiomyopathy, which is improved with EF returning at normal on echo done yesterday. 3. Renal insufficiency, which is improving. 4. Persistently elevated white blood cell count. PLAN: 1. Increase activity as tolerated. 2. Consider CT of the chest and neck later this week as her kidney function continues to improve. 3. Continue IV antibiotics. Job ID: [id number]
[2018-06-20] MEDS: HumaLOG 300 UNITS/3 ML VIAL SC PRN (11:22)
--- NOTE | 2018-06-20 15:09 | PDOC.PN ---
- Subjective Encounter Start Date: 06/20/18 Encounter Start Time: 07:40 Pt seen for followup re; bacteremia. c/o sore throat. Cough+, but better. - Objective Resuscitation Status - Order Detail: 06/10/18 17:01 Resuscitation Status Routine Resuscitation Status: FULL: Full Resuscitation Vital Signs & Weight: Vital Signs (12 hours) Temp Pulse Resp BP Pulse Ox 06/20/18 14:54 75 16 95 06/20/18 11:47 98.2 F 74 18 149/70 H 94 L 06/20/18 10:43 75 16 92 L 06/20/18 08:23 98.4 F 72 20 158/69 H 95 06/20/18 07:39 94 L 06/20/18 07:37 73 16 94 L 06/20/18 04:00 98.2 F 75 20 154/69 H 93 L Weight Admit Weight 229 lb 1.6 oz Weight 247 lb Most Recent Monitor Data Heart Rate from ECG 78 NIBP 176/91 NIBP BP-Mean 119 Respiration from ECG 18 SpO2 96 I&O: 06/19/18 06/20/18 06/21/18 06:59 06:59 06:59 Intake Total 500 1180 Output Total 800 1200 Balance -300 -20 Result Diagrams: 06/20/18 05:16 06/20/18 05:16 Additional Labs: Accuchecks 06/20/18 06/20/18 06/19/18 11:10 05:22 20:31 POC Glucose 187 H 122 H 146 H 06/19/18 16:58 POC Glucose 132 H Phys Exam - Physical Examination Morbid obesity HEENT: moist MMs, oral pharynx no lesions Neck: supple Respiratory: clear to auscultation bilateral Cardiovascular: RRR Gastrointestinal: soft Neurological: moves all 4 limbs Psychiatric: normal affect Dx/Plan (1) Bacteremia Code(s): R78.81 - BACTEREMIA Status: Acute Comment: continue IV ceftriaxone and levofloxacin for H. influenzae bacteremia (2) Empyema lung Code(s): J86.9 - PYOTHORAX WITHOUT FISTULA Status: Acute Comment: s/p pulmonary decortication (3) SUDEEP (acute kidney injury) Code(s): N17.9 - ACUTE KIDNEY FAILURE, UNSPECIFIED Status: Resolved (4) Acute metabolic encephalopathy Code(s): G93.41 - METABOLIC ENCEPHALOPATHY Status: Resolved - Plan plan discussed w/ family, continue antibiotics, PT/OT, out of bed/ambulate * . start cepacol lozenges PRN for sore throat Review of Systems - Review of Systems ENT: Throat Pain Respiratory: Cough, SOB with Excertion, Sputum. negative: Dry, Shortness of Breath, Hemoptysis, Pleuritic Pain, Wheezing Cardiovascular: negative: chest pain, palpitations, orthopnea, paroxysmal nocturnal dyspnea, edema, light headedness - Medications/Allergies Allergies/Adverse Reactions: Allergies Allergy/AdvReac Type Severity Reaction Status Date / Time Penicillins Allergy Verified 06/10/18 21:44 sulfamethoxazole Allergy Verified 06/10/18 21:44 [From Bactrim] trimethoprim [From Bactrim] Allergy Verified 06/10/18 21:44 Medications: Current Medications Acetaminophen (Tylenol) 650 mg PO Q4H PRN PRN Reason: Headache/Fever/Mild Pain (1-3) Albuterol/Ipratropium (Duoneb) 3 ml EZPAP [id number] SCH Last Admin: 06/20/18 14:54 Dose: 3 ml Amlodipine Besylate (Norvasc) 5 mg PO DAILY [facility] Last Admin: 06/20/18 08:29 Dose: 5 mg Aspirin (Ecotrin) 81 mg PO DAILY [facility] Last Admin: 06/20/18 08:29 Dose: 81 mg Atorvastatin Calcium (Lipitor) 40 mg PO HS [facility] Last Admin: 06/19/18 21:30 Dose: 40 mg Benzonatate (Tessalon) 100 mg PO Q12HR [facility] Last Admin: 06/20/18 08:28 Dose: 100 mg Carvedilol (Coreg) 6.25 mg PO BID-[facility] Last Admin: 06/20/18 08:29 Dose: 6.25 mg Clonidine (Catapres) 0.1 mg PO Q4H PRN PRN Reason: FOR SBP > 170mmHg Last Admin: 06/17/18 04:37 Dose: 0.1 mg Dextrose/Water (Dextrose 50%) 25 gm SLOW IVP PRN PRN PRN Reason: Hypoglycemia Enoxaparin Sodium (Lovenox) 40 mg SC 0900 [facility] Last Admin: 06/20/18 08:29 Dose: 40 mg Famotidine (Pepcid) 20 mg PO DAILY [facility] Last Admin: 06/20/18 08:29 Dose: 20 mg Fluticasone Propionate (Flonase Nasal [place]) 1 gm NASAL BID [facility] Last Admin: 06/20/18 08:31 Dose: Not Given Glucagon (Glucagon) 1 mg IM PRN PRN PRN Reason: Hypoglycemia Guaifenesin/Dextromethorphan (Mucinex Dm) 1 tab PO BID [facility] Last Admin: 06/20/18 08:29 Dose: 1 tab Dextrose/Water (D5w) 1,000 mls @ 0 mls/hr IV .Q0M PRN PRN Reason: Hypoglycemia Levofloxacin 750 mg/ Device 150 mls @ 100 mls/hr IVPB Q2D@1100 [facility] Last Admin: 06/20/18 10:31 Dose: 150 mls Ceftriaxone Sodium 2 gm/ (Sodium Chloride) 100 mls @ 200 mls/hr IVPB 0300,1500 [facility] Last Admin: 06/20/18 04:20 Dose: 100 mls Insulin Human Lispro (Humalog) 0 units SC .MILD SLIDING SCALE PRN PRN Reason: Mild Correctional Scale Last Admin: 06/20/18 11:22 Dose: 2 unit Melatonin (Melatonin) 3 mg PO HS PRN PRN Reason: Insomnia Last Admin: 06/19/18 21:30 Dose: 3 mg Nystatin (Mycostatin) 500,000 units SSW QID [facility] Last Admin: 06/20/18 12:31 Dose: 500,000 units Polyethylene Glycol (Miralax) 17 gm PO DAILYPRN PRN PRN Reason: Constipation Last Admin: 06/12/18 13:15 Dose: 17 gm Sodium Chloride (Flush - Normal Saline) 10 ml IVF Q12HR [facility] Last Admin: 06/20/18 08:30 Dose: 10 ml Sodium Chloride (Flush - Normal Saline) 10 ml IVF PRN PRN PRN Reason: Saline Flush Last Admin: 06/20/18 04:20 Dose: 10 ml Throat Lozenges (Cepastat Lozenges) 1 keara PO Q2H PRN PRN Reason: Sore Throat
--- NOTE | 2018-06-20 17:43 | PRG ---
DATE OF SERVICE: 06/20/2018 SUBJECTIVE: The patient is feeling little better today than compared to yesterday, some cough, little bit of pain in site of the decortication and in the lower midline of substernal area. No abdominal pain. No vomiting. No diarrhea. OBJECTIVE: VITAL SIGNS: T-max 98.4, blood pressure 140/70, pulse 81, respirations 16 to 20, O2 saturation 95% on 2 L. LUNGS: Diminished breath sounds on the left side. HEART: S1 and S2. ABDOMEN: Soft, not distended. LABORATORY DATA: White cell count is 23.9, hemoglobin 11, platelets 251, 15% bands. No change in the culture results. ASSESSMENT AND DISCUSSION: Severe Haemophilus influenza infection, which probably started in the neck either with retropharyngeal abscess or epiglottitis. She was diagnosed subsequently with an empyema. She was bacteremic with Haemophilus influenza. She persists with leukocytosis with bandemia. We will go ahead and repeat CT of neck and chest with contrast. Job ID: [id number] [facility]
[2018-06-20] MEDS: Melatonin 3 MG TAB PO PRN (21:03)
[2018-06-20] MEDS: Atorvastatin Calcium 40 MG TAB PO SCH (21:03)
[2018-06-21] MEDS: cefTRIAXone\\ROCEPHIN 2 GM in Sodium Chloride 0.9% 100 ML IVPB SCH ×2 (03:42→15:14)
[2018-06-21 06:11] LABS: Anion Gap 12 mmol/L (10-20); BUN (Urea Nitrogen) 25 mg/dL (9.8-20.1); Calc. Creatinine Clearance 143 mL/min (70-130); Calcium 8.5 mg/dL (7.8-10.44); Carbon Dioxide 30 mmol/L (23-31); Chloride 96 mmol/L (98-107); Estimated GFR-MDRD 82; Glucose 108 mg/dL (80-115); Potassium 3.8 mmol/L (3.5-5.1); Sodium 134 mmol/L (136-145)
[2018-06-21 06:19] LABS: Band 3 % (5-11); Eosinophils 1 % (0-10); Hemoglobin 10.9 g/dL (12.0-16.0); Large Platelets SLIGHT; Lymphocytes 7 % (21-51); MDiff Complete? YES; Mean Corpuscular HGB CONC 30.9 g/dL (32.0-36.0); Mean Corpuscular Hemoglobin 26.8 pg (27.0-31.0); Mean Corpuscular Volume 86.8 fL (78.0-98.0); Monocytes 9 % (0-10); Neutrophil 80 % (42-75); Platelet Count 287 thou/uL (130-400); Platelet Morphology Comment Appears Adequate; RBC Distribution Width 14.1 % (11.5-14.5); Red Blood Cell (RBC) Count 4.07 mill/uL (4.20-5.40); White Blood Cell (WBC) Count 21.6 thou/uL (4.8-10.8)
[2018-06-21] MEDS: Aspirin 81 mg Enteric Coated Tablet PO SCH (10:01)
[2018-06-21] MEDS: Famotidine 20 MG TAB PO SCH (10:01)
[2018-06-21] MEDS: Carvedilol 6.25 MG TAB PO SCH ×2 (10:01→16:21)
[2018-06-21] MEDS: Benzonatate 100 MG CAP PO SCH ×2 (10:01→20:20)
[2018-06-21] MEDS: Enoxaparin Sodium 40 MG/0.4 ML SYRINGE SC SCH (10:02)
[2018-06-21] MEDS: Nystatin 500,000 UNITS/5 ML UDCUP SSW SCH ×4 (10:02→20:20)
[2018-06-21] MEDS: Amlodipine 5 MG TAB PO SCH (10:02)
[2018-06-21] MEDS: guaiFENesin/DM ER PO SCH ×2 (10:02→20:20)
[2018-06-21] MEDS: Fluticasone Propionate Nasal Spray 16 gm Bottle NASAL SCH ×2 (10:03→20:20)
[2018-06-21] MEDS ORDERED: Furosemide 20 MG/2 ML VIAL IVP SCH (10:15)
--- NOTE | 2018-06-21 10:29 | PRG ---
DATE OF SERVICE: 06/21/2018 SUBJECTIVE: Ms. Benitez still feels rather miserable. Dr. Marmolejo tried to order CT of the chest and neck yesterday, but the patient could not lay flat. Last night, she used her home CPAP. She says she has trouble breathing without it. OBJECTIVE: VITAL SIGNS: Her temperature is 98.2, pulse 73, respirations 16, her O2 saturation is 90% on CPAP, but I noticed that her inline oxygen was not plugged in this morning when that was taken. HEENT: Unremarkable. NECK: Without adenopathy or JVD. LUNGS: Fairly clear bilaterally. CARDIAC: S1 and S2. Regular. ABDOMEN: Soft. EXTREMITIES: No edema. LABORATORY DATA: Sodium 134, potassium 3.8, chloride 96, CO2 of 30, BUN 25, creatinine 0.7, and glucose 108. White blood cell count 21.6, hematocrit 35.3, and platelet count 287. ASSESSMENT: 1. The patient is status post decortication of the left empyema from hemophilus influenza. 2. Transient cardiomyopathy, which is better. 3. Renal insufficiency, better. 4. Persistent shortness of breath. PLAN: 1. The patient could be fluid overloaded and therefore, I will give her some Lasix. 2. Check PA and lateral chest x-ray. 3. Continue IV antibiotics. Job ID: [id number]
[2018-06-21] MEDS: Cepastat Lozenges 1 LOZ PO PRN (10:51)
--- NOTE | 2018-06-21 11:21 | RAD ---
TWO VIEW CHEST: Indication: Pneumonia. Comparison: 06-18-18 FINDINGS: Increasing opacification in the right chest has occurred since the prior study. Findings indicate loc ulated fluid in the posterolateral right chest compressing the right lung. Left basilar infiltrate and atelectasis again noted. IMPRESSION: Increasing opacification of the right lung indicates loculated fluid posterolaterally which has occur red since the prior study. POS: KANYD
--- NOTE | 2018-06-21 12:12 | PDOC.CTH ---
Cardiology Progress Note - Subjective Feels a little more SOB this morning. - Objective Vital Signs Temp Pulse Resp BP Pulse Ox 06/21/18 08:01 97.4 F L 68 22 H 164/72 H 94 L 06/21/18 06:40 92 L 06/21/18 06:37 73 16 90 L 06/21/18 03:03 98.2 F 68 20 141/67 H 95 Admit Weight 229 lb 1.6 oz Weight 250 lb 5 oz 06/20/18 06/21/18 06/22/18 06:59 06:59 06:59 Intake Total 1180 900 Output Total 1200 1400 Balance -20 -500 - Physical Examination General/Neuro: alert & oriented x3, NAD Neck: no JVD present Lungs: unlabored respirations, other: (Reduced breath sounds right base. ) Heart: RRR Abdomen: NT/ND Extremities: + edema B (1+) - Telemetry Telemetry Rhythm: NSR - Labs Result Diagrams: 06/21/18 04:12 06/21/18 04:12 Troponin/CKMB Troponin I Less than 0.010 ng/mL (< 0.028) 06/11/18 00:22 - Assessment/Plan 1. Haemophillus sp. bacteremia. 2. New onset mild LV dysfunction, resolved, EF now at 60-65%. 3. Sepsis. 4. Pleural effusion. 5. Mild pulmonary edema. 6. SUDEEP on CKD. Likely ATN. 7. Left empyema.. PLAN: - IV abx per primary team. - EF normalized now, likely CM of severe illness. - Will plan on follow up as outpatient in 1 month after discharge - CV stable. - Will sign off. Please call with any questions.
--- NOTE | 2018-06-21 15:50 | PDOC.PN ---
- Subjective Encounter Start Date: 06/21/18 Encounter Start Time: 07:40 Pt seen for followup re: bacteremia. Reports chest pain with coughing. Cough+ , sputum+ - Objective Resuscitation Status - Order Detail: 06/10/18 17:01 Resuscitation Status Routine Resuscitation Status: FULL: Full Resuscitation MAR Reviewed: Yes Vital Signs & Weight: Vital Signs (12 hours) Temp Pulse Pulse Pulse Resp BP BP 06/21/18 14:49 71 16 06/21/18 12:18 74 70 130/75 131/73 06/21/18 11:55 97.8 F 74 20 06/21/18 08:01 97.4 F L 68 22 H 06/21/18 06:40 06/21/18 06:37 73 16 BP Pulse Ox Pulse Ox Pulse Ox 06/21/18 14:49 90 L 06/21/18 12:18 94 L 94 L 06/21/18 11:55 133/64 94 L 06/21/18 08:01 164/72 H 94 L 06/21/18 06:40 92 L 06/21/18 06:37 90 L Weight Admit Weight 229 lb 1.6 oz Weight 250 lb 5 oz Most Recent Monitor Data Heart Rate from ECG 78 NIBP 176/91 NIBP BP-Mean 119 Respiration from ECG 18 SpO2 96 I&O: 06/20/18 06/21/18 06/22/18 06:59 06:59 06:59 Intake Total 1180 900 Output Total 1200 1400 Balance -20 -500 Result Diagrams: 06/21/18 04:12 06/21/18 04:12 Additional Labs: Accuchecks 06/21/18 06/21/18 06/20/18 10:53 05:28 20:42 POC Glucose 117 H 97 168 H 06/20/18 16:56 POC Glucose 92 EKG Reviewed by me: Yes (Tele: NSR) Phys Exam - Physical Examination Constitutional: NAD HEENT: moist MMs Neck: supple Respiratory: clear to auscultation bilateral Cardiovascular: RRR Gastrointestinal: soft Neurological: moves all 4 limbs Psychiatric: normal affect Dx/Plan (1) Bacteremia Code(s): R78.81 - BACTEREMIA Status: Acute Comment: continue IV ceftriaxone and levofloxacin (2) Empyema lung Code(s): J86.9 - PYOTHORAX WITHOUT FISTULA Status: Acute Comment: s/p pulmonary decortication and thoracoscopy (3) SUDEEP (acute kidney injury) Code(s): N17.9 - ACUTE KIDNEY FAILURE, UNSPECIFIED Status: Resolved (4) Acute metabolic encephalopathy Code(s): G93.41 - METABOLIC ENCEPHALOPATHY Status: Resolved - Plan plan discussed w/ family, continue antibiotics * . Pt could not have CT scan because she could not life flat. Review of Systems - Review of Systems Respiratory: Cough, SOB with Excertion, Sputum. negative: Shortness of Breath, Pleuritic Pain, Wheezing Cardiovascular: chest pain. negative: palpitations, orthopnea, paroxysmal nocturnal dyspnea, edema, light headedness - Medications/Allergies Allergies/Adverse Reactions: Allergies Allergy/AdvReac Type Severity Reaction Status Date / Time Penicillins Allergy Verified 06/10/18 21:44 sulfamethoxazole Allergy Verified 06/10/18 21:44 [From Bactrim] trimethoprim [From Bactrim] Allergy Verified 06/10/18 21:44 Medications: Current Medications Acetaminophen (Tylenol) 650 mg PO Q4H PRN PRN Reason: Headache/Fever/Mild Pain (1-3) Albuterol/Ipratropium (Duoneb) 3 ml EZPAP [id number] [facility] Last Admin: 06/21/18 14:49 Dose: 3 ml Amlodipine Besylate (Norvasc) 5 mg PO DAILY [facility] Last Admin: 06/21/18 10:02 Dose: 5 mg Aspirin (Ecotrin) 81 mg PO DAILY [facility] Last Admin: 06/21/18 10:01 Dose: 81 mg Atorvastatin Calcium (Lipitor) 40 mg PO HS [facility] Last Admin: 06/20/18 21:03 Dose: 40 mg Benzonatate (Tessalon) 100 mg PO Q12HR [facility] Last Admin: 06/21/18 10:01 Dose: 100 mg Carvedilol (Coreg) 6.25 mg PO BID-WM [facility] Last Admin: 06/21/18 10:01 Dose: 6.25 mg Clonidine (Catapres) 0.1 mg PO Q4H PRN PRN Reason: FOR SBP > 170mmHg Last Admin: 06/17/18 04:37 Dose: 0.1 mg Dextrose/Water (Dextrose 50%) 25 gm SLOW IVP PRN PRN PRN Reason: Hypoglycemia Enoxaparin Sodium (Lovenox) 40 mg SC 0900 [facility] Last Admin: 06/21/18 10:02 Dose: 40 mg Famotidine (Pepcid) 20 mg PO DAILY [facility] Last Admin: 06/21/18 10:01 Dose: 20 mg Fluticasone Propionate (Flonase Nasal [place]) 1 gm NASAL BID [facility] Last Admin: 06/21/18 10:03 Dose: Not Given Glucagon (Glucagon) 1 mg IM PRN PRN PRN Reason: Hypoglycemia Guaifenesin/Dextromethorphan (Mucinex Dm) 1 tab PO BID [facility] Last Admin: 06/21/18 10:02 Dose: 1 tab Dextrose/Water (D5w) 1,000 mls @ 0 mls/hr IV .Q0M PRN PRN Reason: Hypoglycemia Levofloxacin 750 mg/ Device 150 mls @ 100 mls/hr IVPB Q2D@1100 [facility] Last Admin: 06/20/18 10:31 Dose: 150 mls Ceftriaxone Sodium 2 gm/ (Sodium Chloride) 100 mls @ 200 mls/hr IVPB 0300,1500 [facility] Last Admin: 06/21/18 15:14 Dose: 100 mls Insulin Human Lispro (Humalog) 0 units SC .MILD SLIDING SCALE PRN PRN Reason: Mild Correctional Scale Last Admin: 06/20/18 11:22 Dose: 2 unit Melatonin (Melatonin) 3 mg PO HS PRN PRN Reason: Insomnia Last Admin: 06/20/18 21:03 Dose: 3 mg Nystatin (Mycostatin) 500,000 units SSW QID [facility] Last Admin: 06/21/18 12:03 Dose: 500,000 units Polyethylene Glycol (Miralax) 17 gm PO DAILYPRN PRN PRN Reason: Constipation Last Admin: 06/12/18 13:15 Dose: 17 gm Sodium Chloride (Flush - Normal Saline) 10 ml IVF Q12HR [facility] Last Admin: 06/21/18 10:03 Dose: 10 ml Sodium Chloride (Flush - Normal Saline) 10 ml IVF PRN PRN PRN Reason: Saline Flush Last Admin: 06/20/18 04:20 Dose: 10 ml Throat Lozenges (Cepastat Lozenges) 1 keara PO Q2H PRN PRN Reason: Sore Throat Last Admin: 06/21/18 10:51 Dose: 1 keara
[2018-06-21] MEDS ORDERED: Mag-Al 1200 mg/1200 mg/30 ML UDCUP PO PRN (15:56)
[2018-06-21] MEDS: Atorvastatin Calcium 40 MG TAB PO SCH (20:20)
[2018-06-22] MEDS: cefTRIAXone\\ROCEPHIN 2 GM in Sodium Chloride 0.9% 100 ML IVPB SCH ×2 (02:30→18:02)
[2018-06-22 07:48] LABS: #Eosinphils 0.1 thou/uL (0.0-0.7); #Monocytes 1.8 thou/uL (0.11-0.59); #Neutrophils 16.2 thou/uL (1.40-6.50); %Basophils 0.2 % (0.0-1.0); %Eosinophils 0.4 % (0.0-10.0); %Lymphocytes 5.3 % (21.0-51.0); %Monocytes 9.5 % (0.0-10.0); %Neutrophils 84.6 % (42.0-75.0); Hemoglobin 11.1 g/dL (12.0-16.0); Mean Corpuscular HGB CONC 32.3 g/dL (32.0-36.0); Mean Corpuscular Hemoglobin 27.9 pg (27.0-31.0); Mean Corpuscular Volume 86.4 fL (78.0-98.0); Mean Platelet Volume 9.8 fL (7.4-10.4); Platelet Count 318 thou/uL (130-400); RBC Distribution Width 14.1 % (11.5-14.5); Red Blood Cell (RBC) Count 3.98 mill/uL (4.20-5.40); White Blood Cell (WBC) Count 19.2 thou/uL (4.8-10.8)
[2018-06-22 08:09] LABS: Anion Gap 14 mmol/L (10-20); BUN (Urea Nitrogen) 20 mg/dL (9.8-20.1); Calc. Creatinine Clearance 133 mL/min (70-130); Calcium 8.8 mg/dL (7.8-10.44); Carbon Dioxide 28 mmol/L (23-31); Chloride 97 mmol/L (98-107); Estimated GFR-MDRD 76; Glucose 116 mg/dL (80-115); Potassium 3.7 mmol/L (3.5-5.1); Sodium 135 mmol/L (136-145)
[2018-06-22] MEDS: Amlodipine 5 MG TAB PO SCH (09:14)
[2018-06-22] MEDS: Benzonatate 100 MG CAP PO SCH ×2 (09:14→21:16)
[2018-06-22] MEDS: Aspirin 81 mg Enteric Coated Tablet PO SCH (09:14)
[2018-06-22] MEDS: Carvedilol 6.25 MG TAB PO SCH ×2 (09:14→17:40)
[2018-06-22] MEDS: guaiFENesin/DM ER PO SCH ×2 (09:14→21:39)
[2018-06-22] MEDS: Nystatin 500,000 UNITS/5 ML UDCUP SSW SCH ×3 (09:15→21:16)
[2018-06-22] MEDS: Famotidine 20 MG TAB PO SCH (09:15)
[2018-06-22] MEDS: Enoxaparin Sodium 40 MG/0.4 ML SYRINGE SC SCH (09:15)
[2018-06-22] MEDS ORDERED: Lidocaine 1% (PF) 30 ML VIAL ONE (09:52)
[2018-06-22] MEDS ORDERED: Fentanyl 250 MCG/5 ML VIAL ONE (10:37)
[2018-06-22 10:40] LABS: Body Fluid Source THORACENTESIS FLD; Clarity Cloudy/Turbid (Clear)
[2018-06-22 10:41] LABS: BF Color Red; Tube # 3
[2018-06-22 10:44] LABS: WBC/NonHematic-Auto 9260 /cumm
--- NOTE | 2018-06-22 10:44 | PRG ---
DATE OF SERVICE: 06/22/2018 SUBJECTIVE: She still feels poorly. She was moved to the medical floor last night. OBJECTIVE: VITAL SIGNS: Temperature 98.2, pulse 73, blood pressure 129/75, O2 saturation 94%. HEENT: Unremarkable. NECK: No JVD. LUNGS: Diminished breath sounds on right compared to left. CARDIAC: S1 and S2, regular. ABDOMEN: Soft. EXTREMITIES: No edema. LABORATORY DATA: Her white blood cell count 19.2, hematocrit 34.4, platelet count 318. Sodium 135, potassium 3.7, chloride 97, CO2 of 28, BUN 20, creatinine 0.7, glucose 116. Her chest x-ray shows a fairly significant right-sided pleural effusion, which is new compared to 3 days ago. ASSESSMENT: Right pleural effusion, may be another empyema. PLAN: Diagnostic and therapeutic thoracentesis. May need Cardiothoracic Surgery to look at her again. Job ID: [id number]
[2018-06-22 10:45] LABS: RBC Count-Automated 29000 /cumm
[2018-06-22 10:46] LABS: Pleural Fluid, Protein 3.3 g/dL
[2018-06-22] MEDS ORDERED: Fentanyl 100 MCG/2 ML VIAL ONE (10:46)
[2018-06-22] MEDS ORDERED: Bupivacaine HCl 0.5%/Epinephrine 1:200,000/PF 30 ml Vial ONE (10:53)
[2018-06-22] MEDS ORDERED: Dexamethasone 20 MG/5 ML VIAL ONE (10:54)
[2018-06-22] MEDS ORDERED: PHENYLEPHRINE-NS 100 MCG/ML 10 ML SYRINGE ONE (10:54)
[2018-06-22] MEDS ORDERED: Glycopyrrolate 0.2 MG/ML 5 ML SYRINGE ONE (10:54)
[2018-06-22] MEDS ORDERED: PROPOFOL 200 MG/20 ML VIAL ONE (10:54)
[2018-06-22] MEDS ORDERED: Rocuronium Bromide 10 MG/ML (10ML VIAL) ONE (10:54)
[2018-06-22] MEDS ORDERED: Ondansetron PF 4 MG/2 ML Vial ONE (10:54)
[2018-06-22] MEDS ORDERED: Lidocaine 1% PF 5 ML VIAL ONE (10:54)
[2018-06-22] MEDS ORDERED: Ketorolac Tromethamine 30 MG/ML VIAL ONE (10:54)
[2018-06-22] MEDS: Fluticasone Propionate Nasal Spray 16 gm Bottle NASAL SCH ×2 (11:21→21:31)
--- NOTE | 2018-06-22 13:00 | OP ---
DATE OF PROCEDURE: 06/22/2018 PROCEDURE: Right thoracentesis. PREOPERATIVE DIAGNOSIS: Right pleural effusion/empyema. POSTOPERATIVE DIAGNOSIS: Right empyema. ANESTHESIA: 1% lidocaine without epinephrine. DESCRIPTION OF PROCEDURE: Informed consent was obtained prior to the procedure. The patient understood the risks and agreed to proceed. The patient was placed in the sitting position. The right posterior hemothorax was cleansed in the 5th and 6th interspace at the lateral right scapular line. Local anesthesia was placed at the site. [id number] catheter was placed in the space, approximately 100 mL of orange colored turbid fluid was removed. I could not get any more to come out the net. The fluid was very proteinaceous. This was an empyema, will require decortication. I have contacted Dr. Markus Clark. Job ID: [id number]
[2018-06-22 13:55] LABS: BF Segmented Neutrophils 91 %; Cell Count Non Hematic 5 %; Lymphocytes 4 %
[2018-06-22] MEDS ORDERED: HYDROcodone/Acetaminophen 5/325 mg Tablet PO PRN (14:16)
[2018-06-22] MEDS ORDERED: Ondansetron PF 4 MG/2 ML Vial IVP PRN (14:16)
[2018-06-22] MEDS ORDERED: Norepinephrine 8 MG/0.9% NS 250 ML IVPB PRN (14:16)
[2018-06-22] MEDS ORDERED: Morphine 2 MG/ML SYRINGE SLOW IVP PRN (14:16)
[2018-06-22] MEDS ORDERED: Morphine 4 MG/ML VIAL SLOW IVP PRN (14:16)
--- NOTE | 2018-06-22 15:14 | RAD ---
PORTABLE CHEST: DATE: 06/22/2018. PROVIDED CLINICAL HISTORY: Status post thoracoscopy. FINDINGS: Comparison is made with the study dated 06/21/2018. Prominent interval decrease in right hemithoracic pleural opacity. Interval placement of right-sided chest tubes. The more inferiorly located of the chest tubes overlies the right costophrenic angle. Persistent left basilar pleural parenchymal opac ity. No evidence for pneumothorax. IMPRESSION: Interval prominent reduction in right hemithoracic pleural opacity. Status post right-sided chest tu be placement. POS: JENNYFER
--- NOTE | 2018-06-22 15:40 | PRG ---
DATE OF SERVICE: 06/22/2018 SUBJECTIVE: Ms. Benitez has been taken to the OR again. I was not able to evaluate her exam. She has been afebrile and BP 114/71. Labs showed a white cell count 19.2, hemoglobin 11, platelets 318, with 84% neutrophils. Chemistry is normal. She could not do the CT scan of chest and neck that I had ordered, because she felt dyspneic upon recumbency, and she had a repeat chest x-ray yesterday, which showed increasing opacification in right lung, probable loculated fluid and, today it worsens. She underwent thoracentesis. Thoracentesis demonstrated 9200 WBCs, predominance of neutrophils, and she went for the decortication, I believe. ASSESSMENT AND DISCUSSION: Severe Haemophilus influenzae infection with likely posterior neck or retropharyngeal abscess and probable mediastinitis with extension to both pleural spaces and bilateral empyemas. The patient is going for surgical intervention on the right side and will go to the CCU after that. Job ID: [id number]
--- NOTE | 2018-06-22 17:21 | PDOC.PN ---
- Subjective Encounter Start Date: 06/22/18 Encounter Start Time: 17:19 Pt seen forfollowup re:empyema. Seen in CCU s/p decortication. Feels better.No chest pain orshortness of breath. - Objective Resuscitation Status - Order Detail: 06/10/18 17:01 Resuscitation Status Routine Resuscitation Status: FULL: Full Resuscitation MAR Reviewed: Yes Vital Signs & Weight: Vital Signs (12 hours) Temp Pulse Resp BP BP Pulse Ox 06/22/18 15:35 98.6 F 93 L 06/22/18 10:23 98 F 67 20 114/71 95 06/22/18 09:14 73 129/75 06/22/18 09:00 94 L 06/22/18 07:20 98.2 F 73 18 129/75 94 L Weight Admit Weight 229 lb 1.6 oz Weight 247 lb 11.2 oz Most Recent Monitor Data Heart Rate from ECG 78 NIBP 176/91 NIBP BP-Mean 119 Respiration from ECG 18 SpO2 96 I&O: 06/21/18 06/22/18 06/23/18 06:59 06:59 06:59 Intake Total 900 1000 Output Total 1400 1200 420 Balance -500 -200 -420 Result Diagrams: 06/22/18 07:38 06/22/18 07:38 Additional Labs: Accuchecks 06/22/18 06/21/18 06/18/18 05:24 20:31 05:29 POC Glucose 145 H 182 H 129 H EKG Reviewed by me: Yes (Tele: NSR) Phys Exam - Physical Examination Morbid obesity HEENT: moist MMs Neck: supple Respiratory: clear to auscultation bilateral Cardiovascular: RRR Gastrointestinal: soft Neurological: moves all 4 limbs Psychiatric: normal affect Dx/Plan (1) Empyema lung Code(s): J86.9 - PYOTHORAX WITHOUT FISTULA Status: Acute Comment: s/p pulmonary decortication today after thoracentesis (2) Bacteremia Code(s): R78.81 - BACTEREMIA Status: Acute Comment: on IV ceftriaxone and levofloxacin (3) SUDEEP (acute kidney injury) Code(s): N17.9 - ACUTE KIDNEY FAILURE, UNSPECIFIED Status: Resolved (4) Acute metabolic encephalopathy Code(s): G93.41 - METABOLIC ENCEPHALOPATHY Status: Resolved - Plan * . Review of Systems - Review of Systems Cardiovascular: negative: chest pain, palpitations, orthopnea, paroxysmal nocturnal dyspnea, edema, light headedness Gastrointestinal: negative: Nausea, Vomiting, Abdominal Pain, Diarrhea, Constipation, Melena, Hematochezia - Medications/Allergies Allergies/Adverse Reactions: Allergies Allergy/AdvReac Type Severity Reaction Status Date / Time Penicillins Allergy Verified 06/10/18 21:44 sulfamethoxazole Allergy Verified 06/10/18 21:44 [From Bactrim] trimethoprim [From Bactrim] Allergy Verified 06/10/18 21:44 Medications: Current Medications Acetaminophen (Tylenol) 650 mg PO Q4H PRN PRN Reason: Headache/Fever/Mild Pain (1-3) Hydrocodone Bitart/Acetaminophen (Grace 5/325) 1 tab PO Q4H PRN PRN Reason: Mild Pain (1-3) Hydrocodone Bitart/Acetaminophen (Grace 5/325) 2 tab PO Q4H PRN PRN Reason: Moderate Pain (4-6) Acetylcysteine (Mucomyst 10% (Oral Or Inh)) 600 mg PO BID [facility] Albuterol/Ipratropium (Duoneb) 3 ml EZPAP [id number] SCH Last Admin: 06/22/18 14:22 Dose: Not Given Albuterol/Ipratropium (Duoneb) 3 ml NEB [id number] PRN PRN Reason: Wheezing Amlodipine Besylate (Norvasc) 5 mg PO DAILY [facility] Last Admin: 06/22/18 09:14 Dose: 5 mg Aspirin (Ecotrin) 81 mg PO DAILY [facility] Last Admin: 06/22/18 09:14 Dose: 81 mg Atorvastatin Calcium (Lipitor) 40 mg PO HS [facility] Last Admin: 06/21/18 20:20 Dose: 40 mg Benzonatate (Tessalon) 100 mg PO Q12HR [facility] Last Admin: 06/22/18 09:14 Dose: 100 mg Carvedilol (Coreg) 6.25 mg PO BID-[facility] Last Admin: 06/22/18 09:14 Dose: 6.25 mg Clonidine (Catapres) 0.1 mg PO Q4H PRN PRN Reason: FOR SBP > 170mmHg Last Admin: 06/17/18 04:37 Dose: 0.1 mg Dextrose/Water (Dextrose 50%) 25 gm SLOW IVP PRN PRN PRN Reason: Hypoglycemia Famotidine (Pepcid) 20 mg PO DAILY [facility] Last Admin: 06/22/18 09:15 Dose: 20 mg Fluticasone Propionate (Flonase Nasal [place]) 1 gm NASAL BID [facility] Last Admin: 06/22/18 11:21 Dose: Not Given Glucagon (Glucagon) 1 mg IM PRN PRN PRN Reason: Hypoglycemia Guaifenesin/Dextromethorphan (Mucinex Dm) 1 tab PO BID [facility] Last Admin: 06/22/18 09:14 Dose: 1 tab Dextrose/Water (D5w) 1,000 mls @ 0 mls/hr IV .Q0M PRN PRN Reason: Hypoglycemia Levofloxacin 750 mg/ Device 150 mls @ 100 mls/hr IVPB Q2D@1100 [facility] Last Admin: 06/20/18 10:31 Dose: 150 mls Ceftriaxone Sodium 2 gm/ (Sodium Chloride) 100 mls @ 200 mls/hr IVPB 0300,1500 [facility] Last Admin: 06/22/18 02:30 Dose: 100 mls Norepinephrine Bitartrate (Levophed) 250 mls @ 0 mls/hr IVPB PRN PRN; Protocol PRN Reason: To Keep SBP > 90 mmHG Sodium Chloride (Normal Saline 0.9%) 1,000 mls @ 100 mls/hr IV .Q10H [facility] Insulin Human Regular (Humulin R) 0 units SC .MILD SLIDING SCALE PRN PRN Reason: Mild Correctional Scale Melatonin (Melatonin) 3 mg PO HS PRN PRN Reason: Insomnia Last Admin: 06/20/18 21:03 Dose: 3 mg Morphine Sulfate (Morphine) 2 mg SLOW IVP Q4H PRN PRN Reason: Moderate Pain (4-6) Morphine Sulfate (Morphine) 4 mg SLOW IVP Q4H PRN PRN Reason: Severe Pain (7-10) Nystatin (Mycostatin) 500,000 units SSW QID [facility] Last Admin: 06/22/18 09:15 Dose: 500,000 units Ondansetron HCl (Zofran) 4 mg IVP Q6H PRN PRN Reason: Nausea/Vomiting Polyethylene Glycol (Miralax) 17 gm PO DAILYPRN PRN PRN Reason: Constipation Last Admin: 06/12/18 13:15 Dose: 17 gm Sodium Chloride (Flush - Normal Saline) 10 ml IVF Q12HR [facility] Last Admin: 06/22/18 09:15 Dose: 10 ml Sodium Chloride (Flush - Normal Saline) 10 ml IVF PRN PRN PRN Reason: Saline Flush Last Admin: 06/20/18 04:20 Dose: 10 ml Throat Lozenges (Cepastat Lozenges) 1 keara PO Q2H PRN PRN Reason: Sore Throat Last Admin: 06/21/18 10:51 Dose: 1 keara
[2018-06-22] MEDS: Sodium Chloride 0.9% 1,000 ML IV SCH (18:02)
[2018-06-22 18:27] LABS: Hemoglobin 8.3 g/dL (12.0-16.0); Mean Corpuscular HGB CONC 32.6 g/dL (32.0-36.0); Mean Platelet Volume 9.5 fL (7.4-10.4); Platelet Count 254 thou/uL (130-400); RBC Distribution Width 13.9 % (11.5-14.5); Red Blood Cell (RBC) Count 2.96 mill/uL (4.20-5.40); White Blood Cell (WBC) Count 20.5 thou/uL (4.8-10.8)
[2018-06-22 19:03] LABS: Band 7 % (5-11); Basophilic Stippling SLIGHT = 1-2 cells (100X) (None Seen); Lymphocytes 1 % (21-51); MDiff Complete? YES; Monocytes 4 % (0-10); Neutrophil 88 % (42-75); Platelet Morphology Comment Appears Adequate; Polychromasia SLIGHT = 2-3 cells (100X) (0-2/hpf)
--- NOTE | 2018-06-22 20:35 | OP ---
DATE OF PROCEDURE: 06/22/2018 PREOPERATIVE DIAGNOSIS: Right empyema. POSTOPERATIVE DIAGNOSIS: Right empyema. PROCEDURES PERFORMED: 1. Therapeutic bronchoscopy. 2. Right thoracoscopy with total pulmonary decortication. ANESTHESIA: General endotracheal - Dr. Es Dominguez. DRAINS: 32-Greek chest tubes x2. FINDINGS: 1 L of loculated congealed pleural fluid. SPECIMENS: Fluid for culture. DESCRIPTION OF PROCEDURE: After consent was obtained, the patient was brought to the operating room and placed in supine position on the operating room table. Appropriate central line was placed, and general endotracheal anesthesia was induced. Flexible fiberoptic bronchoscopy was used to position the endotracheal tube. There was thick secretions throughout both bronchi, which was initially partially evacuated allowing for single lung ventilation. The patient was then placed in the left lateral decubitus position. Joints were appropriately padded. The SCDs were used. The right chest wall was prepped and draped in usual sterile fashion. Three port incisions were made for instrumentation. Thoracoscope was inserted and 1 L of fluid was initially evacuated. There was a significant amount of gelatinous material throughout. The lung was completely freed from the chest wall and gelatinous material debrided. Once this had all been debrided, the chest was irrigated with 3 L of saline. A 32-Greek chest tubes x2 were placed one on the apex and one along the diaphragmatic sulcus. The lung was reinflated and filled the chest cavity nicely. Block was performed with 0.5% Marcaine with epinephrine. The two remaining wounds were then closed in layers and Dermabond applied to skin. The patient was then placed supine. A double-lumen tube was exchanged for single-lumen #8 endotracheal tube. Large flexible fiberoptic bronchoscope was inserted and primary secondary tertiary bronchioles intubated and cleared of all secretions and debris. After irrigation and clearing, the patient was awakened, extubated, and transferred to the intensive care unit in stable, but critical condition. Needle, sponge, and instrument counts were all reported as correct at the end of the procedure. Job ID: [id number]
[2018-06-22] MEDS: Atorvastatin Calcium 40 MG TAB PO SCH (21:16)
[2018-06-23] MEDS: Acetylcysteine 10% 100 MG/ML 30 ml Vial PO SCH ×3 (00:19→18:47)
[2018-06-23] MEDS: cefTRIAXone\\ROCEPHIN 2 GM in Sodium Chloride 0.9% 100 ML IVPB SCH ×2 (03:08→14:54)
[2018-06-23] MEDS: Sodium Chloride 0.9% 1,000 ML IV SCH (04:35)
[2018-06-23 05:53] LABS: #Monocytes 1.5 thou/uL (0.11-0.59); #Neutrophils 16.8 thou/uL (1.40-6.50); %Eosinophils 0.2 % (0.0-10.0); %Lymphocytes 5.1 % (21.0-51.0); %Monocytes 7.7 % (0.0-10.0); Hemoglobin 9.7 g/dL (12.0-16.0); Mean Corpuscular HGB CONC 33.5 g/dL (32.0-36.0); Mean Corpuscular Hemoglobin 28.6 pg (27.0-31.0); Mean Corpuscular Volume 85.4 fL (78.0-98.0); Mean Platelet Volume 9.7 fL (7.4-10.4); Platelet Count 241 thou/uL (130-400); RBC Distribution Width 13.4 % (11.5-14.5); Red Blood Cell (RBC) Count 3.39 mill/uL (4.20-5.40); White Blood Cell (WBC) Count 19.4 thou/uL (4.8-10.8)
[2018-06-23 06:10] LABS: Anion Gap 12 mmol/L (10-20); BUN (Urea Nitrogen) 21 mg/dL (9.8-20.1); Calc. Creatinine Clearance 113 mL/min (70-130); Calcium 7.3 mg/dL (7.8-10.44); Carbon Dioxide 28 mmol/L (23-31); Chloride 98 mmol/L (98-107); Estimated GFR-MDRD 68; Glucose 111 mg/dL (80-115); Potassium 3.5 mmol/L (3.5-5.1); Sodium 134 mmol/L (136-145)
[2018-06-23] MEDS: Carvedilol 6.25 MG TAB PO SCH ×2 (08:09→17:44)
[2018-06-23] MEDS: Amlodipine 5 MG TAB PO SCH (08:10)
[2018-06-23] MEDS: Nystatin 500,000 UNITS/5 ML UDCUP SSW SCH ×4 (08:10→20:58)
[2018-06-23] MEDS: Famotidine 20 MG TAB PO SCH (08:10)
[2018-06-23] MEDS: Aspirin 81 mg Enteric Coated Tablet PO SCH (08:11)
[2018-06-23] MEDS: Fluticasone Propionate Nasal Spray 16 gm Bottle NASAL SCH ×2 (08:11→20:58)
[2018-06-23] MEDS: Benzonatate 100 MG CAP PO SCH ×2 (08:11→20:58)
--- NOTE | 2018-06-23 09:01 | RAD ---
FRONTAL RADIOGRAPH CHEST: DATE: 06/23/2018. COMPARISON: 06/22/2018. HISTORY: Evaluate chest following thoracotomy. FINDINGS: Two stable chest tubes are present on the right. There is worsening pleural and parenchymal opacity in the right lung base with findings suggesting right middle and/or right lower lobe collapse and/or increasing right pleural fluid. There is worsening pleural and parenchymal opacity also noted within the left lung base. No pneumothorax is seen. IMPRESSION: Worsening density in both lung bases when compared to the 06/22/2018 exam. This may represent pulmona ry edema or enlarging pleural effusions. POS: JENNYFER
--- NOTE | 2018-06-23 09:27 | PRG ---
DATE OF SERVICE: 06/23/2018 SUBJECTIVE: This morning, she is in the ICU. Denies any pain or discomfort. OBJECTIVE: VITAL SIGNS: Blood pressure is 120/45, pulse 72, saturations 94%, respiratory rate 22, afebrile. CHEST: Decreased breath sounds bilaterally. CARDIAC: Normal S1 and S2. No gallops. ABDOMEN: Negative mass. LABORATORY DATA: White count is elevated at 19,000, H and H is unremarkable, platelet count is normal. Lytes are normal. X-ray still shows significant amount of right-sided haziness. IMPRESSION: 1. Bilateral empyema, status post bilateral decortication. 2. Haemophilus influenzae on culture. PLAN: Continue antibiotics as prescribed. If okay with surgery, she can be transferred out of the ICU. Job ID: [id number]
--- NOTE | 2018-06-23 13:08 | PDOC.PN ---
- Subjective Encounter Start Date: 06/23/18 Encounter Start Time: 07:40 Pt seen for followup re: empyema. Reports feeling better. - Objective Resuscitation Status - Order Detail: 06/10/18 17:01 Resuscitation Status Routine Resuscitation Status: FULL: Full Resuscitation MAR Reviewed: Yes Vital Signs & Weight: Vital Signs (12 hours) Temp Pulse Resp BP Pulse Ox 06/23/18 10:55 98.2 F 78 16 108/64 96 06/23/18 09:50 94 L 06/23/18 08:00 98.0 F 06/23/18 07:10 92 L 06/23/18 07:07 72 21 H 93 L 06/23/18 05:00 99 F Weight Admit Weight 229 lb 1.6 oz Weight 229 lb 15.074 oz Most Recent Monitor Data Heart Rate from ECG 65 NIBP 114/53 NIBP BP-Mean 73 Respiration from ECG 17 SpO2 94 I&O: 06/22/18 06/23/18 06/24/18 06:59 06:59 06:59 Intake Total 1000 2023 50 Output Total 1200 1333 146 Balance -200 690 -96 Result Diagrams: 06/23/18 05:39 06/23/18 05:40 Additional Labs: Accuchecks 06/23/18 06/23/18 06/22/18 10:56 05:55 21:14 POC Glucose 157 H 103 110 06/22/18 17:33 POC Glucose 113 H Tele: NSR Phys Exam - Physical Examination Constitutional: NAD HEENT: moist MMs Neck: supple Respiratory: clear to auscultation bilateral R chest tube Cardiovascular: RRR Gastrointestinal: soft Neurological: moves all 4 limbs Psychiatric: normal affect Dx/Plan (1) Empyema lung Code(s): J86.9 - PYOTHORAX WITHOUT FISTULA Status: Acute Comment: s/p pulmonary decortication, pt clinically improved significantly (2) Bacteremia Code(s): R78.81 - BACTEREMIA Status: Acute Comment: continue IV ceftriaxone and levofloxacin (3) SUDEEP (acute kidney injury) Code(s): N17.9 - ACUTE KIDNEY FAILURE, UNSPECIFIED Status: Resolved (4) Acute metabolic encephalopathy Code(s): G93.41 - METABOLIC ENCEPHALOPATHY Status: Resolved - Plan * . Review of Systems - Review of Systems Cardiovascular: negative: chest pain, palpitations, orthopnea, paroxysmal nocturnal dyspnea, edema, light headedness Gastrointestinal: negative: Nausea, Vomiting, Abdominal Pain, Diarrhea, Constipation, Melena, Hematochezia - Medications/Allergies Allergies/Adverse Reactions: Allergies Allergy/AdvReac Type Severity Reaction Status Date / Time Penicillins Allergy Verified 06/10/18 21:44 sulfamethoxazole Allergy Verified 06/10/18 21:44 [From Bactrim] trimethoprim [From Bactrim] Allergy Verified 06/10/18 21:44 Medications: Current Medications Acetaminophen (Tylenol) 650 mg PO Q4H PRN PRN Reason: Headache/Fever/Mild Pain (1-3) Hydrocodone Bitart/Acetaminophen ([place] 5/325) 1 tab PO Q4H PRN PRN Reason: Mild Pain (1-3) Hydrocodone Bitart/Acetaminophen ([place] 5/325) 2 tab PO Q4H PRN PRN Reason: Moderate Pain (4-6) Acetylcysteine (Mucomyst 10% (Oral Or Inh)) 600 mg PO BID-RT [facility] Albuterol/Ipratropium (Duoneb) 3 ml EZPAP [id number] [facility] Last Admin: 06/23/18 07:07 Dose: 3 ml Albuterol/Ipratropium (Duoneb) 3 ml NEB [id number] PRN PRN Reason: Wheezing Last Admin: 06/23/18 00:20 Dose: 3 ml Amlodipine Besylate (Norvasc) 5 mg PO DAILY [facility] Last Admin: 06/23/18 08:10 Dose: Not Given Aspirin (Ecotrin) 81 mg PO DAILY [facility] Last Admin: 06/23/18 08:11 Dose: 81 mg Atorvastatin Calcium (Lipitor) 40 mg PO HS [facility] Last Admin: 06/22/18 21:16 Dose: 40 mg Benzonatate (Tessalon) 100 mg PO Q12HR [facility] Last Admin: 06/23/18 08:11 Dose: 100 mg Carvedilol (Coreg) 6.25 mg PO BID-WM [facility] Last Admin: 06/23/18 08:09 Dose: Not Given Clonidine (Catapres) 0.1 mg PO Q4H PRN PRN Reason: FOR SBP > 170mmHg Last Admin: 06/17/18 04:37 Dose: 0.1 mg Dextrose/Water (Dextrose 50%) 25 gm SLOW IVP PRN PRN PRN Reason: Hypoglycemia Famotidine (Pepcid) 20 mg PO DAILY [facility] Last Admin: 06/23/18 08:10 Dose: 20 mg Fluticasone Propionate (Flonase Nasal [place]) 1 gm NASAL BID [facility] Last Admin: 06/23/18 08:11 Dose: 2 spray Glucagon (Glucagon) 1 mg IM PRN PRN PRN Reason: Hypoglycemia Guaifenesin/Dextromethorphan (Mucinex Dm) 1 tab PO BID [facility] Last Admin: 06/22/18 21:39 Dose: 1 tab Dextrose/Water (D5w) 1,000 mls @ 0 mls/hr IV .Q0M PRN PRN Reason: Hypoglycemia Levofloxacin 750 mg/ Device 150 mls @ 100 mls/hr IVPB Q2D@1100 [facility] Last Admin: 06/22/18 17:39 Dose: Not Given Ceftriaxone Sodium 2 gm/ (Sodium Chloride) 100 mls @ 200 mls/hr IVPB 0300,1500 [facility] Last Admin: 06/23/18 03:08 Dose: 100 mls Insulin Human Regular (Humulin R) 0 units SC .MILD SLIDING SCALE PRN PRN Reason: Mild Correctional Scale Melatonin (Melatonin) 3 mg PO HS PRN PRN Reason: Insomnia Last Admin: 06/20/18 21:03 Dose: 3 mg Morphine Sulfate (Morphine) 2 mg SLOW IVP Q4H PRN PRN Reason: Moderate Pain (4-6) Nystatin (Mycostatin) 500,000 units SSW QID [facility] Last Admin: 06/23/18 08:10 Dose: 500,000 units Ondansetron HCl (Zofran) 4 mg IVP Q6H PRN PRN Reason: Nausea/Vomiting Polyethylene Glycol (Miralax) 17 gm PO DAILYPRN PRN PRN Reason: Constipation Last Admin: 06/12/18 13:15 Dose: 17 gm Sodium Chloride (Flush - Normal Saline) 10 ml IVF Q12HR [facility] Last Admin: 06/23/18 08:10 Dose: 10 ml Sodium Chloride (Flush - Normal Saline) 10 ml IVF PRN PRN PRN Reason: Saline Flush Last Admin: 06/20/18 04:20 Dose: 10 ml Throat Lozenges (Cepastat Lozenges) 1 keara PO Q2H PRN PRN Reason: Sore Throat Last Admin: 06/21/18 10:51 Dose: 1 keara
[2018-06-23] MEDS: guaiFENesin/DM ER PO SCH ×2 (13:34→20:57)
[2018-06-23] MEDS: Cepastat Lozenges 1 LOZ PO PRN (13:34)
[2018-06-23] MEDS: HYDROcodone/Acetaminophen 5/325 mg Tablet PO PRN ×2 (14:53→23:42)
[2018-06-23] MEDS: Insulin Regular 300 UNITS/3 ML VIAL SC PRN (18:17)
[2018-06-23] MEDS ORDERED: Sodium Chloride 0.9% 1,000 ML IV SCH (18:45)
[2018-06-23] MEDS: Atorvastatin Calcium 40 MG TAB PO SCH (20:58)
--- NOTE | 2018-06-23 22:59 | EKG ---
Test Reason : Blood Pressure : / mmHG Vent. Rate : 098 BPM Atrial Rate : 098 BPM P-R Int : 140 ms QRS Dur : 092 ms QT Int : 350 ms P-R-T Axes : 044 -06 025 degrees QTc Int : 446 ms Normal sinus rhythm Minimal voltage criteria for LVH, may be normal variant Borderline ECG Confirmed by SUDHA RHODES, EVERETT ([id number]), features editor TINY EPRRIN ([id number]) on 06/23/2018 10:58:36 PM Referred By: SUDHA Confirmed By:EVERETT HALEY MD
[2018-06-24] MEDS: cefTRIAXone\\ROCEPHIN 2 GM in Sodium Chloride 0.9% 100 ML IVPB SCH ×2 (03:17→16:10)
[2018-06-24 06:35] LABS: #Basophils 0.1 thou/uL (0.0-0.2); #Eosinphils 0.1 thou/uL (0.0-0.7); #Lymphocytes 1.1 thou/uL (1.20-3.40); #Monocytes 1.6 thou/uL (0.11-0.59); #Neutrophils 11.8 thou/uL (1.40-6.50); %Basophils 0.4 % (0.0-1.0); %Eosinophils 0.9 % (0.0-10.0); %Lymphocytes 7.4 % (21.0-51.0); %Neutrophils 80.3 % (42.0-75.0); Hemoglobin 8.9 g/dL (12.0-16.0); Mean Corpuscular HGB CONC 33.8 g/dL (32.0-36.0); Platelet Count 240 thou/uL (130-400); RBC Distribution Width 13.6 % (11.5-14.5); Red Blood Cell (RBC) Count 3.05 mill/uL (4.20-5.40); White Blood Cell (WBC) Count 14.7 thou/uL (4.8-10.8)
[2018-06-24 06:58] LABS: Anion Gap 8 mmol/L (10-20); BUN (Urea Nitrogen) 19 mg/dL (9.8-20.1); Calc. Creatinine Clearance 110 mL/min (70-130); Calcium 7.4 mg/dL (7.8-10.44); Carbon Dioxide 30 mmol/L (23-31); Chloride 97 mmol/L (98-107); Estimated GFR-MDRD 67; Glucose 138 mg/dL (80-115); Potassium 3.2 mmol/L (3.5-5.1); Sodium 132 mmol/L (136-145)
--- NOTE | 2018-06-24 07:41 | RAD ---
FRONTAL RADIOGRAPH CHEST: DATE: 06/24/2018. COMPARISON: 06/23/2018. HISTORY: Reevaluate chest wall and thoracotomy. FINDINGS: Two stable right-sided chest tubes are present. There is hazy density in the right base suggesting a combination of right lower lobe consolidation/collapse and right pleural fluid. Dense opacity in th e inferior left base persists, evidence of pleural and parenchymal opacity. IMPRESSION: Stable appearance of the chest. POS: JENNYFER
[2018-06-24] MEDS: Famotidine 20 MG TAB PO SCH (08:02)
[2018-06-24] MEDS: Amlodipine 5 MG TAB PO SCH (08:03)
[2018-06-24] MEDS: Fluticasone Propionate Nasal Spray 16 gm Bottle NASAL SCH ×2 (08:03→20:38)
[2018-06-24] MEDS: Carvedilol 6.25 MG TAB PO SCH ×2 (08:03→17:34)
[2018-06-24] MEDS: Benzonatate 100 MG CAP PO SCH ×2 (08:03→20:38)
[2018-06-24] MEDS: Aspirin 81 mg Enteric Coated Tablet PO SCH (08:03)
[2018-06-24] MEDS: Nystatin 500,000 UNITS/5 ML UDCUP SSW SCH ×4 (08:04→20:38)
[2018-06-24] MEDS: guaiFENesin/DM ER PO SCH ×2 (08:38→20:38)
[2018-06-24] MEDS: Acetylcysteine 10% 100 MG/ML 30 ml Vial PO SCH ×2 (10:14→18:58)
--- NOTE | 2018-06-24 12:00 | PRG ---
DATE OF SERVICE: 06/24/2018 SUBJECTIVE: This morning, she is better, coughing up some relatively clear sputum. OBJECTIVE: VITAL SIGNS: Temperature 97, pulse 73, respiratory rate 18, and blood pressure 122/61. CHEST: Minimal rhonchi. CARDIAC: Normal S1 and S2. No gallops. ABDOMEN: No masses. LABORATORY DATA: White count is 14.7 and 19 yesterday. IMPRESSION: 1. Bilateral empyema, status post bilateral decortication. 2. Haemophilus influenzae. Continue Annia, Heladio, and PT. Job ID: [id number]
--- NOTE | 2018-06-24 13:23 | PDOC.PN ---
- Subjective Encounter Start Date: 06/24/18 Encounter Start Time: 08:40 Pt seen for followup re; empyema. Feels better. Cough+, sputum+ - Objective Resuscitation Status - Order Detail: 06/10/18 17:01 Resuscitation Status Routine Resuscitation Status: FULL: Full Resuscitation MAR Reviewed: Yes Vital Signs & Weight: Vital Signs (12 hours) Temp Pulse Resp BP BP BP Pulse Ox 06/24/18 11:21 98.4 F 68 18 121/71 94 L 06/24/18 10:15 73 18 93 L 06/24/18 08:03 74 122/61 06/24/18 08:00 94 L 06/24/18 07:09 98 F 71 18 122/61 94 L 06/24/18 06:47 74 20 93 L 06/24/18 03:30 74 20 93 L 06/24/18 03:19 75 122/75 94 L Weight Admit Weight 229 lb 1.6 oz Weight 229 lb 15.074 oz Most Recent Monitor Data Heart Rate from ECG 65 NIBP 114/53 NIBP BP-Mean 73 Respiration from ECG 17 SpO2 94 I&O: 06/23/18 06/24/18 06/25/18 06:59 06:59 06:59 Intake Total 3 1831 Output Total 1333 1246 Balance 690 585 Result Diagrams: 06/24/18 05:41 06/24/18 05:41 Additional Labs: Accuchecks 06/24/18 06/24/18 06/23/18 11:18 06:07 20:46 POC Glucose 174 H 130 H 161 H 06/23/18 16:07 POC Glucose 174 H Labs reviewed by me Phys Exam - Physical Examination Constitutional: NAD HEENT: moist MMs Neck: supple Respiratory: clear to auscultation bilateral Cardiovascular: RRR Gastrointestinal: soft Neurological: moves all 4 limbs Psychiatric: normal affect Dx/Plan (1) Empyema lung Code(s): J86.9 - PYOTHORAX WITHOUT FISTULA Status: Acute Comment: Improving (2) Bacteremia Code(s): R78.81 - BACTEREMIA Status: Acute Comment: on IV ceftriaxone and levofloxacin (3) SUDEEP (acute kidney injury) Code(s): N17.9 - ACUTE KIDNEY FAILURE, UNSPECIFIED Status: Resolved (4) Acute metabolic encephalopathy Code(s): G93.41 - METABOLIC ENCEPHALOPATHY Status: Resolved - Plan * . Review of Systems - Review of Systems Respiratory: Cough, Sputum. negative: Dry, Shortness of Breath, Hemoptysis, SOB with Excertion, Pleuritic Pain, Wheezing Cardiovascular: negative: chest pain, palpitations, orthopnea, paroxysmal nocturnal dyspnea, edema, light headedness - Medications/Allergies Allergies/Adverse Reactions: Allergies Allergy/AdvReac Type Severity Reaction Status Date / Time Penicillins Allergy Verified 06/10/18 21:44 sulfamethoxazole Allergy Verified 06/10/18 21:44 [From Bactrim] trimethoprim [From Bactrim] Allergy Verified 06/10/18 21:44 Medications: Current Medications Acetaminophen (Tylenol) 650 mg PO Q4H PRN PRN Reason: Headache/Fever/Mild Pain (1-3) Hydrocodone Bitart/Acetaminophen ([place] 5/325) 1 tab PO Q4H PRN PRN Reason: Mild Pain (1-3) Hydrocodone Bitart/Acetaminophen ([place] 5/325) 2 tab PO Q4H PRN PRN Reason: Moderate Pain (4-6) Last Admin: 06/23/18 23:42 Dose: 2 tab Acetylcysteine (Mucomyst 10% (Oral Or Inh)) 600 mg PO BID-RT [facility] Last Admin: 06/24/18 10:14 Dose: 600 mg Albuterol/Ipratropium (Duoneb) 3 ml EZPAP [id number] [facility] Last Admin: 06/24/18 10:15 Dose: 3 ml Albuterol/Ipratropium (Duoneb) 3 ml NEB [id number] PRN PRN Reason: Wheezing Last Admin: 06/23/18 00:20 Dose: 3 ml Amlodipine Besylate (Norvasc) 5 mg PO DAILY [facility] Last Admin: 06/24/18 08:03 Dose: 5 mg Aspirin (Ecotrin) 81 mg PO DAILY [facility] Last Admin: 06/24/18 08:03 Dose: 81 mg Atorvastatin Calcium (Lipitor) 40 mg PO HS [facility] Last Admin: 06/23/18 20:58 Dose: 40 mg Benzonatate (Tessalon) 100 mg PO Q12HR [facility] Last Admin: 06/24/18 08:03 Dose: 100 mg Carvedilol (Coreg) 6.25 mg PO BID-WM [facility] Last Admin: 06/24/18 08:03 Dose: 6.25 mg Clonidine (Catapres) 0.1 mg PO Q4H PRN PRN Reason: FOR SBP > 170mmHg Last Admin: 06/17/18 04:37 Dose: 0.1 mg Dextrose/Water (Dextrose 50%) 25 gm SLOW IVP PRN PRN PRN Reason: Hypoglycemia Famotidine (Pepcid) 20 mg PO DAILY [facility] Last Admin: 06/24/18 08:02 Dose: 20 mg Fluticasone Propionate (Flonase Nasal [place]) 1 gm NASAL BID [facility] Last Admin: 06/24/18 08:03 Dose: 1 spray Glucagon (Glucagon) 1 mg IM PRN PRN PRN Reason: Hypoglycemia Guaifenesin/Dextromethorphan (Mucinex Dm) 1 tab PO BID [facility] Last Admin: 06/24/18 08:38 Dose: 1 tab Dextrose/Water (D5w) 1,000 mls @ 0 mls/hr IV .Q0M PRN PRN Reason: Hypoglycemia Levofloxacin 750 mg/ Device 150 mls @ 100 mls/hr IVPB Q2D@1100 [facility] Last Admin: 06/24/18 11:21 Dose: 150 mls Ceftriaxone Sodium 2 gm/ (Sodium Chloride) 100 mls @ 200 mls/hr IVPB 0300,1500 [facility] Last Admin: 06/24/18 03:17 Dose: 100 mls Insulin Human Regular (Humulin R) 0 units SC .MILD SLIDING SCALE PRN PRN Reason: Mild Correctional Scale Last Admin: 06/23/18 18:17 Dose: 2 units Melatonin (Melatonin) 3 mg PO HS PRN PRN Reason: Insomnia Last Admin: 06/20/18 21:03 Dose: 3 mg Morphine Sulfate (Morphine) 2 mg SLOW IVP Q4H PRN PRN Reason: Moderate Pain (4-6) Nystatin (Mycostatin) 500,000 units SSW QID [facility] Last Admin: 06/24/18 08:04 Dose: 500,000 units Ondansetron HCl (Zofran) 4 mg IVP Q6H PRN PRN Reason: Nausea/Vomiting Polyethylene Glycol (Miralax) 17 gm PO DAILYPRN PRN PRN Reason: Constipation Last Admin: 06/12/18 13:15 Dose: 17 gm Sodium Chloride (Flush - Normal Saline) 10 ml IVF Q12HR [facility] Last Admin: 06/23/18 20:10 Dose: Not Given Sodium Chloride (Flush - Normal Saline) 10 ml IVF PRN PRN PRN Reason: Saline Flush Last Admin: 06/20/18 04:20 Dose: 10 ml Throat Lozenges (Cepastat Lozenges) 1 keara PO Q2H PRN PRN Reason: Sore Throat Last Admin: 06/23/18 13:34 Dose: 1 keara
--- NOTE | 2018-06-24 14:49 | PRG ---
DATE OF SERVICE: 06/24/2018 SUBJECTIVE: Ms. Benitez had the right-side decorticated now. She also had mucus plugging, which was washed through bronchoscopy. She is back in room and is sitting up, appears comfortable at rest. No abdominal pain. Moderate pain at the two chest tube sites. Has a Faust catheter in place. OBJECTIVE: VITAL SIGNS: She is afebrile. Other vital signs are normal. 94% O2 sats. GENERAL: Awake and oriented. HEENT: Ocular movements conjugate. LUNGS: With coarse breath sounds, right and left side. Chest tube in the right side. HEART: S1 and S2. Regular rate. ABDOMEN: Soft, not distended or tender. EXTREMITIES: Moves extremities equally. LABORATORY DATA: White cell count finally down to 14,000, hemoglobin 8.9, platelets 240, 80% neutrophils. Sodium 132, creatinine 0.86. All the cultures negative from the subsequent fluid samples submitted. ASSESSMENT AND DISCUSSION: Severe Haemophilus influenzae infection, likely epiglottitis or retropharyngeal abscess and then likely mediastinitis with bilateral empyemas, which required interventions as described above. Now, she is finally improving in terms of her total white cell and should continue to see improvement going forward. Eventually, could transition to just quinolone orally for administration for continuation of therapy for long periods of time. Job ID: [id number]
[2018-06-24] MEDS: HYDROcodone/Acetaminophen 5/325 mg Tablet PO PRN (17:35)
[2018-06-24] MEDS: Atorvastatin Calcium 40 MG TAB PO SCH (20:38)
[2018-06-25] MEDS: cefTRIAXone\\ROCEPHIN 2 GM in Sodium Chloride 0.9% 100 ML IVPB SCH ×2 (03:46→14:52)
[2018-06-25 06:08] LABS: #Basophils 0.1 thou/uL (0.0-0.2); #Eosinphils 0.1 thou/uL (0.0-0.7); #Lymphocytes 0.6 thou/uL (1.20-3.40); #Monocytes 1.2 thou/uL (0.11-0.59); #Neutrophils 9.5 thou/uL (1.40-6.50); %Basophils 0.7 % (0.0-1.0); %Eosinophils 1.1 % (0.0-10.0); %Monocytes 10.4 % (0.0-10.0); %Neutrophils 82.8 % (42.0-75.0); Hemoglobin 9.6 g/dL (12.0-16.0); Mean Corpuscular HGB CONC 32.9 g/dL (32.0-36.0); Mean Corpuscular Hemoglobin 28.8 pg (27.0-31.0); Mean Corpuscular Volume 87.4 fL (78.0-98.0); Mean Platelet Volume 9.7 fL (7.4-10.4); Platelet Count 247 thou/uL (130-400); RBC Distribution Width 13.8 % (11.5-14.5); Red Blood Cell (RBC) Count 3.33 mill/uL (4.20-5.40); White Blood Cell (WBC) Count 11.5 thou/uL (4.8-10.8)
[2018-06-25 06:19] LABS: Anion Gap 13 mmol/L (10-20); BUN (Urea Nitrogen) 11 mg/dL (9.8-20.1); Calc. Creatinine Clearance 142 mL/min (70-130); Calcium 7.9 mg/dL (7.8-10.44); Carbon Dioxide 28 mmol/L (23-31); Chloride 94 mmol/L (98-107); Estimated GFR-MDRD 83; Glucose 103 mg/dL (80-115); Potassium 3.5 mmol/L (3.5-5.1); Sodium 131 mmol/L (136-145)
[2018-06-25] MEDS: Acetylcysteine 10% 100 MG/ML 30 ml Vial PO SCH ×2 (07:35→19:31)
[2018-06-25] MEDS: Benzonatate 100 MG CAP PO SCH ×2 (08:00→20:10)
[2018-06-25] MEDS: Carvedilol 6.25 MG TAB PO SCH ×2 (08:00→17:45)
[2018-06-25] MEDS: guaiFENesin/DM ER PO SCH ×2 (08:00→20:10)
[2018-06-25] MEDS: Amlodipine 5 MG TAB PO SCH (08:00)
[2018-06-25] MEDS: Aspirin 81 mg Enteric Coated Tablet PO SCH (08:00)
[2018-06-25] MEDS: Famotidine 20 MG TAB PO SCH (08:00)
[2018-06-25] MEDS: Nystatin 500,000 UNITS/5 ML UDCUP SSW SCH ×4 (08:01→20:10)
[2018-06-25] MEDS: Fluticasone Propionate Nasal Spray 16 gm Bottle NASAL SCH ×2 (08:03→20:10)
--- NOTE | 2018-06-25 08:58 | RAD ---
FRONTAL RADIOGRAPH CHEST PORTABLE UPRIGHT: DATE: 06/25/2018. COMPARISON: 06/24/2018. HISTORY: Reevaluate chest tube. FINDINGS: Two right-sided chest tubes are present. There is no pneumothorax seen. There is stable dense nonspecific pleural and parenchymal opacity in the left lung base. There is al so hazy density in the right perihilar region with pleural-based right lateral basilar and medial ple ural densities, unchanged. IMPRESSION: Persistent pleural and parenchymal opacity bilaterally as detailed above. Two stable right-sided [address] [facility] tubes. POS: OFF
--- NOTE | 2018-06-25 09:33 | PRG ---
DATE OF SERVICE: 06/25/2018 SUBJECTIVE: The patient is doing well compared to late last week. She had no acute complaints. OBJECTIVE: VITAL SIGNS: On exam, temperature is 98.1, pulse 72, blood pressure 147/84, O2 saturation 94% on 3 L. HEENT: Unremarkable. NECK: No JVD. CHEST: Clear bilaterally. She has chest tube in on the right. CARDIAC: S1, S2. Regular. ABDOMEN: Soft. EXTREMITIES: No edema. LABORATORY DATA: White blood cell count 11.5, hematocrit 29.1, and platelet count 247. Sodium 131, potassium 3.5, chloride 94, CO2 of 28, BUN 11, creatinine 0.7, glucose 103. ASSESSMENT: 1. Status post decortication of bilateral empyema. 2. Probable posterior pharyngeal abscess, which is also better. PLAN: Continue antibiotics as long as Dr. Marmolejo feels is as appropriate. Hopefully, chest tube out soon. Job ID: [id number]
[2018-06-25] MEDS: Insulin Regular 300 UNITS/3 ML VIAL SC PRN (12:08)
--- NOTE | 2018-06-25 15:55 | PDOC.PN ---
- Subjective Encounter Start Date: 06/25/18 Encounter Start Time: 09:00 Pt seen for followup re: empyema. Feels better, cough still present, sputum as well. - Objective Resuscitation Status - Order Detail: 06/10/18 17:01 Resuscitation Status Routine Resuscitation Status: FULL: Full Resuscitation MAR Reviewed: Yes Vital Signs & Weight: Vital Signs (12 hours) Temp Pulse Resp BP BP BP Pulse Ox 06/25/18 15:42 98.2 F 69 20 104/63 93 L 06/25/18 15:01 77 20 06/25/18 10:59 80 20 06/25/18 10:54 98.2 F 66 22 H 131/73 93 L 06/25/18 08:49 94 L 06/25/18 08:07 94 L 06/25/18 08:00 72 147/84 H 06/25/18 07:35 72 20 94 L 06/25/18 07:28 98.1 F 72 20 147/84 H 94 L 06/25/18 04:00 98 F 69 18 136/72 95 Weight Admit Weight 229 lb 1.6 oz Weight 245 lb 3.2 oz Most Recent Monitor Data Heart Rate from ECG 65 NIBP 114/53 NIBP BP-Mean 73 Respiration from ECG 17 SpO2 94 I&O: 06/24/18 06/25/18 06/26/18 06:59 06:59 06:59 Intake Total 1831 2050 Output Total 1246 1800 Balance 585 250 Result Diagrams: 06/26/18 05:55 06/26/18 05:55 Additional Labs: Accuchecks 06/25/18 06/24/18 06/24/18 10:54 20:45 16:18 POC Glucose 163 H 167 H 149 H Labs reviewed by me Phys Exam - Physical Examination Constitutional: NAD HEENT: moist MMs Neck: supple Respiratory: clear to auscultation bilateral Cardiovascular: RRR Gastrointestinal: soft Neurological: moves all 4 limbs Psychiatric: normal affect Dx/Plan (1) Empyema lung Code(s): J86.9 - PYOTHORAX WITHOUT FISTULA Status: Acute Comment: Improving , s/p decortication, right chest tube (2) Bacteremia Code(s): R78.81 - BACTEREMIA Status: Acute Comment: IV ceftriaxone and levofloxacin (3) SUDEEP (acute kidney injury) Code(s): N17.9 - ACUTE KIDNEY FAILURE, UNSPECIFIED Status: Resolved (4) Acute metabolic encephalopathy Code(s): G93.41 - METABOLIC ENCEPHALOPATHY Status: Resolved - Plan * . Review of Systems - Review of Systems Respiratory: Cough, Sputum. negative: Dry, Shortness of Breath, Hemoptysis, SOB with Excertion, Pleuritic Pain, Wheezing Cardiovascular: negative: chest pain, palpitations, orthopnea, paroxysmal nocturnal dyspnea, edema, light headedness - Medications/Allergies Allergies/Adverse Reactions: Allergies Allergy/AdvReac Type Severity Reaction Status Date / Time Penicillins Allergy Verified 06/10/18 21:44 sulfamethoxazole Allergy Verified 06/10/18 21:44 [From Bactrim] trimethoprim [From Bactrim] Allergy Verified 06/10/18 21:44 Medications: Current Medications Acetaminophen (Tylenol) 650 mg PO Q4H PRN PRN Reason: Headache/Fever/Mild Pain (1-3) Hydrocodone Bitart/Acetaminophen ([place] 5/325) 1 tab PO Q4H PRN PRN Reason: Mild Pain (1-3) Last Admin: 06/25/18 13:44 Dose: 1 tab Hydrocodone Bitart/Acetaminophen ([place] 5/325) 2 tab PO Q4H PRN PRN Reason: Moderate Pain (4-6) Last Admin: 06/24/18 17:35 Dose: 2 tab Acetylcysteine (Mucomyst 10% (Oral Or Inh)) 600 mg PO BID-RT [facility] Last Admin: 06/25/18 07:35 Dose: 600 mg Albuterol/Ipratropium (Duoneb) 3 ml EZPAP [id number] [facility] Last Admin: 06/25/18 15:01 Dose: 3 ml Albuterol/Ipratropium (Duoneb) 3 ml NEB [id number] PRN PRN Reason: Wheezing Last Admin: 06/23/18 00:20 Dose: 3 ml Amlodipine Besylate (Norvasc) 5 mg PO DAILY [facility] Last Admin: 06/25/18 08:00 Dose: 5 mg Aspirin (Ecotrin) 81 mg PO DAILY [facility] Last Admin: 06/25/18 08:00 Dose: 81 mg Atorvastatin Calcium (Lipitor) 40 mg PO HS [facility] Last Admin: 06/24/18 20:38 Dose: 40 mg Benzonatate (Tessalon) 100 mg PO Q12HR [facility] Last Admin: 06/25/18 08:00 Dose: 100 mg Carvedilol (Coreg) 6.25 mg PO BID-[facility] Last Admin: 06/25/18 08:00 Dose: 6.25 mg Clonidine (Catapres) 0.1 mg PO Q4H PRN PRN Reason: FOR SBP > 170mmHg Last Admin: 06/17/18 04:37 Dose: 0.1 mg Dextrose/Water (Dextrose 50%) 25 gm SLOW IVP PRN PRN PRN Reason: Hypoglycemia Famotidine (Pepcid) 20 mg PO DAILY [facility] Last Admin: 06/25/18 08:00 Dose: 20 mg Fluticasone Propionate (Flonase Nasal [place]) 1 gm NASAL BID [facility] Last Admin: 06/25/18 08:03 Dose: 1 spray Glucagon (Glucagon) 1 mg IM PRN PRN PRN Reason: Hypoglycemia Guaifenesin/Dextromethorphan (Mucinex Dm) 1 tab PO BID [facility] Last Admin: 06/25/18 08:00 Dose: 1 tab Dextrose/Water (D5w) 1,000 mls @ 0 mls/hr IV .Q0M PRN PRN Reason: Hypoglycemia Ceftriaxone Sodium 2 gm/ (Sodium Chloride) 100 mls @ 200 mls/hr IVPB 0300,1500 [facility] Last Admin: 06/25/18 14:52 Dose: 100 mls Insulin Human Regular (Humulin R) 0 units SC .MILD SLIDING SCALE PRN PRN Reason: Mild Correctional Scale Last Admin: 06/25/18 12:08 Dose: 2 units Levofloxacin (Levaquin) 500 mg PO 1500 [facility] Last Admin: 06/25/18 14:52 Dose: 500 mg Melatonin (Melatonin) 3 mg PO HS PRN PRN Reason: Insomnia Last Admin: 06/20/18 21:03 Dose: 3 mg Morphine Sulfate (Morphine) 2 mg SLOW IVP Q4H PRN PRN Reason: Moderate Pain (4-6) Nystatin (Mycostatin) 500,000 units SSW QID [facility] Last Admin: 06/25/18 12:08 Dose: 500,000 units Ondansetron HCl (Zofran) 4 mg IVP Q6H PRN PRN Reason: Nausea/Vomiting Polyethylene Glycol (Miralax) 17 gm PO DAILYPRN PRN PRN Reason: Constipation Last Admin: 06/12/18 13:15 Dose: 17 gm Sodium Chloride (Flush - Normal Saline) 10 ml IVF Q12HR [facility] Last Admin: 06/25/18 08:01 Dose: 10 ml Sodium Chloride (Flush - Normal Saline) 10 ml IVF PRN PRN PRN Reason: Saline Flush Last Admin: 06/20/18 04:20 Dose: 10 ml Throat Lozenges (Cepastat Lozenges) 1 keara PO Q2H PRN PRN Reason: Sore Throat Last Admin: 06/23/18 13:34 Dose: 1 keara
[2018-06-25] MEDS: Atorvastatin Calcium 40 MG TAB PO SCH (20:10)
[2018-06-26] MEDS: cefTRIAXone\\ROCEPHIN 2 GM in Sodium Chloride 0.9% 100 ML IVPB SCH ×2 (02:51→15:11)
[2018-06-26 06:49] LABS: #Eosinphils 0.1 thou/uL (0.0-0.7); #Lymphocytes 0.6 thou/uL (1.20-3.40); #Monocytes 0.8 thou/uL (0.11-0.59); #Neutrophils 6.3 thou/uL (1.40-6.50); %Basophils 0.1 % (0.0-1.0); %Eosinophils 1.8 % (0.0-10.0); %Lymphocytes 7.3 % (21.0-51.0); %Monocytes 9.9 % (0.0-10.0); %Neutrophils 80.9 % (42.0-75.0); Mean Corpuscular HGB CONC 32.9 g/dL (32.0-36.0); Mean Corpuscular Hemoglobin 28.7 pg (27.0-31.0); Mean Corpuscular Volume 87.4 fL (78.0-98.0); Mean Platelet Volume 9.5 fL (7.4-10.4); Platelet Count 231 thou/uL (130-400); RBC Distribution Width 13.6 % (11.5-14.5); Red Blood Cell (RBC) Count 3.14 mill/uL (4.20-5.40); White Blood Cell (WBC) Count 7.8 thou/uL (4.8-10.8)
[2018-06-26 07:06] LABS: Anion Gap 12 mmol/L (10-20); BUN (Urea Nitrogen) 8 mg/dL (9.8-20.1); Calc. Creatinine Clearance 158 mL/min (70-130); Calcium 7.8 mg/dL (7.8-10.44); Carbon Dioxide 29 mmol/L (23-31); Chloride 94 mmol/L (98-107); Estimated GFR-MDRD Greater than 90; Glucose 107 mg/dL (80-115); Potassium 3.4 mmol/L (3.5-5.1); Sodium 132 mmol/L (136-145)
[2018-06-26] MEDS: Acetylcysteine 10% 100 MG/ML 30 ml Vial PO SCH ×2 (07:20→19:37)
--- NOTE | 2018-06-26 08:22 | RAD ---
CHEST 1 VIEW: Date: 06/26/18 HISTORY: Dyspnea. Follow-up. COMPARISON: 06/25/18. FINDINGS: Cardiac silhouette is magnified, enlarged, and partially obscured by atelectasis at the left base berta t similar in appearance to the previous study. Mediastinum is midline. Pulmonary vasculature remains engorged with patchy areas of parenchymal infiltrate throughout each lung that are less dense than on the prior study. Right thoracostomy tubes remain in place. No significant residual pneumothorax. Sma ll amount of fluid layering along the lateral aspect of the right chest wall has decreased since the previous exam. IMPRESSION: 1. Improved aeration of the lungs. 2. Decrease in right pleural fluid. 3. Persistent atelectasis and fluid at the left base. POS: [facility]
[2018-06-26] MEDS: Benzonatate 100 MG CAP PO SCH ×2 (08:50→20:11)
[2018-06-26] MEDS: Carvedilol 6.25 MG TAB PO SCH ×2 (08:50→16:26)
[2018-06-26] MEDS: Famotidine 20 MG TAB PO SCH (08:51)
[2018-06-26] MEDS: Amlodipine 5 MG TAB PO SCH (08:51)
[2018-06-26] MEDS: Fluticasone Propionate Nasal Spray 16 gm Bottle NASAL SCH ×2 (08:51→20:11)
[2018-06-26] MEDS: Nystatin 500,000 UNITS/5 ML UDCUP SSW SCH ×4 (08:51→20:10)
[2018-06-26] MEDS: guaiFENesin/DM ER PO SCH ×2 (10:13→20:11)
[2018-06-26] MEDS: Aspirin 81 mg Enteric Coated Tablet PO SCH (10:13)
[2018-06-26] MEDS: Insulin Regular 300 UNITS/3 ML VIAL SC PRN ×2 (12:28→20:42)
--- NOTE | 2018-06-26 12:41 | PDOC.PN ---
- Subjective Encounter Start Date: 06/26/18 Encounter Start Time: 08:40 Pt seen for followup re: empyema. Still coughing a lot, sputum++. - Objective Resuscitation Status - Order Detail: 06/10/18 17:01 Resuscitation Status Routine Resuscitation Status: FULL: Full Resuscitation MAR Reviewed: Yes Vital Signs & Weight: Vital Signs (12 hours) Temp Pulse Resp BP BP Pulse Ox 06/26/18 12:02 98.4 F 65 16 132/85 94 L 06/26/18 10:35 64 20 94 L 06/26/18 08:51 68 146/81 H 06/26/18 08:50 146/81 H 95 06/26/18 08:00 98.1 F 70 16 146/81 H 95 06/26/18 07:21 97 06/26/18 07:17 66 20 97 06/26/18 03:18 84 20 97 Weight Admit Weight 229 lb 1.6 oz Weight 245 lb 3.2 oz Most Recent Monitor Data Heart Rate from ECG 65 NIBP 114/53 NIBP BP-Mean 73 Respiration from ECG 17 SpO2 94 I&O: 06/25/18 06/26/18 06/27/18 06:59 06:59 06:59 Intake Total 0 Output Total 1800 1860 Balance 250 -1860 Result Diagrams: 06/26/18 05:55 06/26/18 05:55 Additional Labs: Accuchecks 06/26/18 06/26/18 06/25/18 10:35 05:58 20:14 POC Glucose 167 H 114 H 170 H 06/25/18 15:59 POC Glucose 144 H labs reviewed by me Phys Exam - Physical Examination Constitutional: NAD HEENT: moist MMs Neck: supple Respiratory: clear to auscultation bilateral Cardiovascular: RRR Gastrointestinal: soft Neurological: moves all 4 limbs Psychiatric: normal affect Dx/Plan (1) Empyema lung Code(s): J86.9 - PYOTHORAX WITHOUT FISTULA Status: Acute Comment: Improving (2) Bacteremia Code(s): R78.81 - BACTEREMIA Status: Acute Comment: IV ceftriaxone and levofloxacin (3) SUDEEP (acute kidney injury) Code(s): N17.9 - ACUTE KIDNEY FAILURE, UNSPECIFIED Status: Resolved (4) Acute metabolic encephalopathy Code(s): G93.41 - METABOLIC ENCEPHALOPATHY Status: Resolved - Plan * . Review of Systems - Review of Systems Constitutional: negative: fever, chills, sweats, weakness, malaise Respiratory: Cough, Sputum. negative: Dry, Shortness of Breath, Hemoptysis, SOB with Excertion, Pleuritic Pain, Wheezing - Medications/Allergies Allergies/Adverse Reactions: Allergies Allergy/AdvReac Type Severity Reaction Status Date / Time Penicillins Allergy Verified 06/10/18 21:44 sulfamethoxazole Allergy Verified 06/10/18 21:44 [From Bactrim] trimethoprim [From Bactrim] Allergy Verified 06/10/18 21:44 Medications: Current Medications Acetaminophen (Tylenol) 650 mg PO Q4H PRN PRN Reason: Headache/Fever/Mild Pain (1-3) Hydrocodone Bitart/Acetaminophen ([place] 5/325) 1 tab PO Q4H PRN PRN Reason: Mild Pain (1-3) Last Admin: 06/25/18 13:44 Dose: 1 tab Hydrocodone Bitart/Acetaminophen ([place] 5/325) 2 tab PO Q4H PRN PRN Reason: Moderate Pain (4-6) Last Admin: 06/24/18 17:35 Dose: 2 tab Acetylcysteine (Mucomyst 10% (Oral Or Inh)) 600 mg PO BID-RT [facility] Last Admin: 06/26/18 07:20 Dose: Not Given Albuterol/Ipratropium (Duoneb) 3 ml EZPAP [id number] [facility] Last Admin: 06/26/18 10:35 Dose: 3 ml Albuterol/Ipratropium (Duoneb) 3 ml NEB [id number] PRN PRN Reason: Wheezing Last Admin: 06/23/18 00:20 Dose: 3 ml Amlodipine Besylate (Norvasc) 5 mg PO DAILY [facility] Last Admin: 06/26/18 08:51 Dose: 5 mg Aspirin (Ecotrin) 81 mg PO DAILY [facility] Last Admin: 06/26/18 10:13 Dose: 81 mg Atorvastatin Calcium (Lipitor) 40 mg PO HS [facility] Last Admin: 06/25/18 20:10 Dose: 40 mg Benzonatate (Tessalon) 100 mg PO Q12HR [facility] Last Admin: 06/26/18 08:50 Dose: 100 mg Carvedilol (Coreg) 6.25 mg PO BID-[facility] Last Admin: 06/26/18 08:50 Dose: 6.25 mg Clonidine (Catapres) 0.1 mg PO Q4H PRN PRN Reason: FOR SBP > 170mmHg Last Admin: 06/17/18 04:37 Dose: 0.1 mg Dextrose/Water (Dextrose 50%) 25 gm SLOW IVP PRN PRN PRN Reason: Hypoglycemia Famotidine (Pepcid) 20 mg PO DAILY [facility] Last Admin: 06/26/18 08:51 Dose: 20 mg Fluticasone Propionate (Flonase Nasal [place]) 1 gm NASAL BID [facility] Last Admin: 06/26/18 08:51 Dose: 1 spray Glucagon (Glucagon) 1 mg IM PRN PRN PRN Reason: Hypoglycemia Guaifenesin/Dextromethorphan (Mucinex Dm) 1 tab PO BID [facility] Last Admin: 06/26/18 10:13 Dose: 1 tab Dextrose/Water (D5w) 1,000 mls @ 0 mls/hr IV .Q0M PRN PRN Reason: Hypoglycemia Ceftriaxone Sodium 2 gm/ (Sodium Chloride) 100 mls @ 200 mls/hr IVPB 0300,1500 [facility] Last Admin: 06/26/18 02:51 Dose: 100 mls Ceftriaxone Sodium 2 gm/ (Sodium Chloride) 100 mls @ 200 mls/hr IVPB 0300,1500 [facility] Insulin Human Regular (Humulin R) 0 units SC .MILD SLIDING SCALE PRN PRN Reason: Mild Correctional Scale Last Admin: 06/26/18 12:28 Dose: 2 units Levofloxacin (Levaquin) 500 mg PO 1500 [facility] Last Admin: 06/25/18 14:52 Dose: 500 mg Melatonin (Melatonin) 3 mg PO HS PRN PRN Reason: Insomnia Last Admin: 06/20/18 21:03 Dose: 3 mg Morphine Sulfate (Morphine) 2 mg SLOW IVP Q4H PRN PRN Reason: Moderate Pain (4-6) Nystatin (Mycostatin) 500,000 units SSW QID [facility] Last Admin: 06/26/18 12:28 Dose: 500,000 units Ondansetron HCl (Zofran) 4 mg IVP Q6H PRN PRN Reason: Nausea/Vomiting Polyethylene Glycol (Miralax) 17 gm PO DAILYPRN PRN PRN Reason: Constipation Last Admin: 06/12/18 13:15 Dose: 17 gm Sodium Chloride (Flush - Normal Saline) 10 ml IVF Q12HR [facility] Last Admin: 06/26/18 08:52 Dose: 10 ml Sodium Chloride (Flush - Normal Saline) 10 ml IVF PRN PRN PRN Reason: Saline Flush Last Admin: 06/20/18 04:20 Dose: 10 ml Throat Lozenges (Cepastat Lozenges) 1 keara PO Q2H PRN PRN Reason: Sore Throat Last Admin: 06/23/18 13:34 Dose: 1 keara
--- NOTE | 2018-06-26 12:44 | PRG ---
DATE OF SERVICE: 06/26/2018 SUBJECTIVE: She feels better. She is up in a chair. OBJECTIVE: VITAL SIGNS: Temperature 98.1, pulse 64, respirations 20, O2 sat 94% on 2 L, and blood pressure 154/81. HEENT: Unremarkable. NECK: Without adenopathy, JVD, or bruits. LUNGS: Clear. She has a chest tube in on the right, draining small amount of bloody fluid. CARDIAC: S1 and S2, regular. ABDOMEN: Soft. EXTREMITIES: No edema. LABORATORY DATA: White blood cell count 7.8, hematocrit 27.5, and platelet count 231. Sodium 132, potassium 3.4, chloride 94, CO2 of 29, BUN 8, creatinine 0.6, glucose 107. ASSESSMENT: 1. Haemophilus empyema - bilateral. 2. Status post Haemophilus sepsis. PLAN: The patient at some point needs a CT of her neck and chest. She is still not sure she can lie down flat, but she will try today and see if she can do that in bed. Hopefully, her chest tube will be out in a day or two. Job ID: [id number]
--- NOTE | 2018-06-26 18:04 | PRG ---
DATE OF SERVICE: 06/26/2018 SUBJECTIVE: Sitting up by the bedside. A little bit tachypneic, but feels comfortable. A little bit constipated. No chest pain. OBJECTIVE: VITAL SIGNS: T-max 98.4, blood pressure 150/80, pulse 65, respirations 16, O2 saturation 94%. GENERAL: The patient with a right-sided chest tube and Faust catheter in place. LUNGS: Symmetric air entry with decreased breath sounds at the bases, particularly on the right side. HEART: S1 and S2. Regular rate. ABDOMEN: Soft, nontender. EXTREMITIES: Moves extremities equally. LABORATORY DATA: White cell count is down to 7.8, hemoglobin 9.0, platelets 231, 80% neutrophils. Creatinine 0.64. Microbiology, all the cultures obtained since the original blood cultures from 06/10 have been negative. ASSESSMENT AND DISCUSSION: Severe Haemophilus influenzae infection with likely epiglottitis/retropharyngeal abscess with possible mediastinitis and then extension into the right and left pleural space with bilateral empyemas. We will switch her and now to levofloxacin by itself. Discontinue Rocephin and she should continue on levofloxacin for probably another 3 weeks after discharge planning. Job ID: [id number]
[2018-06-26] MEDS: Atorvastatin Calcium 40 MG TAB PO SCH (20:11)
[2018-06-27] MEDS: cefTRIAXone\\ROCEPHIN 2 GM in Sodium Chloride 0.9% 100 ML IVPB SCH ×3 (02:21→17:20)
[2018-06-27] MEDS: Acetylcysteine 10% 100 MG/ML 30 ml Vial PO SCH ×2 (06:17→18:47)
[2018-06-27 07:22] LABS: #Eosinphils 0.1 thou/uL (0.0-0.7); #Lymphocytes 0.7 thou/uL (1.20-3.40); #Monocytes 0.8 thou/uL (0.11-0.59); %Basophils 0.3 % (0.0-1.0); %Eosinophils 1.8 % (0.0-10.0); %Lymphocytes 10.3 % (21.0-51.0); %Monocytes 12.6 % (0.0-10.0); Hemoglobin 9.8 g/dL (12.0-16.0); Mean Corpuscular HGB CONC 33.1 g/dL (32.0-36.0); Mean Corpuscular Hemoglobin 28.8 pg (27.0-31.0); Mean Platelet Volume 9.4 fL (7.4-10.4); Platelet Count 217 thou/uL (130-400); RBC Distribution Width 13.5 % (11.5-14.5); Red Blood Cell (RBC) Count 3.41 mill/uL (4.20-5.40); White Blood Cell (WBC) Count 6.7 thou/uL (4.8-10.8)
[2018-06-27 07:39] LABS: Anion Gap 12 mmol/L (10-20); BUN (Urea Nitrogen) 8 mg/dL (9.8-20.1); Calc. Creatinine Clearance 174 mL/min (70-130); Carbon Dioxide 31 mmol/L (23-31); Chloride 93 mmol/L (98-107); Estimated GFR-MDRD Greater than 90; Glucose 99 mg/dL (80-115); Potassium 3.1 mmol/L (3.5-5.1); Sodium 133 mmol/L (136-145)
--- NOTE | 2018-06-27 07:59 | RAD ---
CHEST 1 VIEW: HISTORY: Followup status post thoracotomy. COMPARISON: 06/26/2018. FINDINGS: Two right chest tubes in place. Persistent pleural and parenchymal opacity changes in the left base and scattered pleural and parenchymal opacity changes in the right base, all of which appear to be st able. IMPRESSION: Stable bilateral pleural and parenchymal opacity changes. Two right chest tubes in place without sig nificant pneumothorax. Continued short-term followup. POS: OFF
[2018-06-27] MEDS: Nystatin 500,000 UNITS/5 ML UDCUP SSW SCH ×4 (08:05→20:30)
[2018-06-27] MEDS: Amlodipine 5 MG TAB PO SCH (08:05)
[2018-06-27] MEDS: Fluticasone Propionate Nasal Spray 16 gm Bottle NASAL SCH ×2 (08:05→20:30)
[2018-06-27] MEDS: Carvedilol 6.25 MG TAB PO SCH ×2 (08:05→16:44)
[2018-06-27] MEDS: guaiFENesin/DM ER PO SCH ×2 (08:06→20:31)
[2018-06-27] MEDS: Famotidine 20 MG TAB PO SCH (08:06)
[2018-06-27] MEDS: Benzonatate 100 MG CAP PO SCH ×2 (08:06→20:30)
[2018-06-27] MEDS: Aspirin 81 mg Enteric Coated Tablet PO SCH (08:06)
--- NOTE | 2018-06-27 09:55 | PRG ---
DATE OF SERVICE: 06/27/2018 SUBJECTIVE: The patient is feeling better, had no acute complaints. OBJECTIVE: VITAL SIGNS: Temperature 98.2, pulse 70, blood pressure 145/80, O2 saturation 96% on 3 L. HEENT: Unremarkable. NECK: No JVD. CHEST: Fairly clear. She still has a chest tube in the right chest. CARDIAC: S1 and S2, regular. ABDOMEN: Soft. EXTREMITIES: No edema. LABORATORY DATA: White blood cell count 6.7, hematocrit 29.7, and platelet count 217. Sodium 133, potassium 3.1, BUN 8, creatinine 0.5, glucose 99. ASSESSMENT: The patient is greatly improved from a Pulmonary standpoint. PLAN: Continuing chest tube drainage, continuing antibiotics. Increase activity as tolerated. Job ID: [id number]
[2018-06-27 10:36] VITALS: BMI 40.4
--- NOTE | 2018-06-27 12:48 | PDOC.PN ---
- Subjective Encounter Start Date: 06/27/18 Encounter Start Time: 08:00 Pt seen for followup re: empyema. Feels slightly better. - Objective Resuscitation Status - Order Detail: 06/10/18 17:01 Resuscitation Status Routine Resuscitation Status: FULL: Full Resuscitation Vital Signs & Weight: Vital Signs (12 hours) Temp Pulse Resp BP BP BP Pulse Ox 06/27/18 10:50 98.2 F 73 18 133/74 94 L 06/27/18 10:02 76 16 94 L 06/27/18 08:06 96 06/27/18 08:05 72 145/80 H 06/27/18 07:14 98.2 F 74 18 145/80 H 96 06/27/18 06:17 97 06/27/18 06:15 70 16 97 06/27/18 04:43 98.0 F 72 18 162/80 H 94 L Weight Admit Weight 229 lb 1.6 oz Weight 243 lb Most Recent Monitor Data Heart Rate from ECG 65 NIBP 114/53 NIBP BP-Mean 73 Respiration from ECG 17 SpO2 94 I&O: 06/26/18 06/27/18 06/28/18 06:59 06:59 06:59 Intake Total 1930 Output Total 1860 6035 Balance -1859 -1914 Result Diagrams: 06/27/18 05:57 06/27/18 05:57 Additional Labs: Accuchecks 06/27/18 06/27/18 06/26/18 11:52 06:20 20:19 POC Glucose 98 111 H 153 H 06/26/18 15:35 POC Glucose 135 H Phys Exam - Physical Examination Constitutional: NAD HEENT: moist MMs Neck: supple Respiratory: clear to auscultation bilateral Cardiovascular: RRR Gastrointestinal: soft Neurological: moves all 4 limbs Psychiatric: normal affect Dx/Plan (1) Empyema lung Code(s): J86.9 - PYOTHORAX WITHOUT FISTULA Status: Acute Comment: Improving , continue levofloxacin (2) Bacteremia Code(s): R78.81 - BACTEREMIA Status: Acute Comment: continue levofloxacin (3) SUDEEP (acute kidney injury) Code(s): N17.9 - ACUTE KIDNEY FAILURE, UNSPECIFIED Status: Resolved (4) Acute metabolic encephalopathy Code(s): G93.41 - METABOLIC ENCEPHALOPATHY Status: Resolved - Plan * . Review of Systems - Review of Systems Constitutional: weakness. negative: fever, chills, sweats, malaise Respiratory: Cough, Sputum. negative: Dry, Shortness of Breath, Hemoptysis, SOB with Excertion, Pleuritic Pain, Wheezing - Medications/Allergies Allergies/Adverse Reactions: Allergies Allergy/AdvReac Type Severity Reaction Status Date / Time Penicillins Allergy Verified 06/10/18 21:44 sulfamethoxazole Allergy Verified 06/10/18 21:44 [From Bactrim] trimethoprim [From Bactrim] Allergy Verified 06/10/18 21:44 Medications: Current Medications Acetaminophen (Tylenol) 650 mg PO Q4H PRN PRN Reason: Headache/Fever/Mild Pain (1-3) Hydrocodone Bitart/Acetaminophen ([place] 5/325) 1 tab PO Q4H PRN PRN Reason: Mild Pain (1-3) Last Admin: 06/25/18 13:44 Dose: 1 tab Hydrocodone Bitart/Acetaminophen ([place] 5/325) 2 tab PO Q4H PRN PRN Reason: Moderate Pain (4-6) Last Admin: 06/24/18 17:35 Dose: 2 tab Acetylcysteine (Mucomyst 10% (Oral Or Inh)) 600 mg PO BID-RT [facility] Last Admin: 06/27/18 06:17 Dose: 600 mg Albuterol/Ipratropium (Duoneb) 3 ml EZPAP [id number] [facility] Last Admin: 06/27/18 10:02 Dose: 3 ml Albuterol/Ipratropium (Duoneb) 3 ml NEB [id number] PRN PRN Reason: Wheezing Last Admin: 06/23/18 00:20 Dose: 3 ml Amlodipine Besylate (Norvasc) 5 mg PO DAILY [facility] Last Admin: 06/27/18 08:05 Dose: 5 mg Aspirin (Ecotrin) 81 mg PO DAILY [facility] Last Admin: 06/27/18 08:06 Dose: 81 mg Atorvastatin Calcium (Lipitor) 40 mg PO HS [facility] Last Admin: 06/26/18 20:11 Dose: 40 mg Benzonatate (Tessalon) 100 mg PO Q12HR [facility] Last Admin: 06/27/18 08:06 Dose: 100 mg Carvedilol (Coreg) 6.25 mg PO BID-[facility] Last Admin: 06/27/18 08:05 Dose: 6.25 mg Clonidine (Catapres) 0.1 mg PO Q4H PRN PRN Reason: FOR SBP > 170mmHg Last Admin: 06/17/18 04:37 Dose: 0.1 mg Dextrose/Water (Dextrose 50%) 25 gm SLOW IVP PRN PRN PRN Reason: Hypoglycemia Famotidine (Pepcid) 20 mg PO DAILY [facility] Last Admin: 06/27/18 08:06 Dose: 20 mg Fluticasone Propionate (Flonase Nasal [place]) 1 gm NASAL BID [facility] Last Admin: 06/27/18 08:05 Dose: 1 spray Glucagon (Glucagon) 1 mg IM PRN PRN PRN Reason: Hypoglycemia Guaifenesin/Dextromethorphan (Mucinex Dm) 1 tab PO BID [facility] Last Admin: 06/27/18 08:06 Dose: 1 tab Dextrose/Water (D5w) 1,000 mls @ 0 mls/hr IV .Q0M PRN PRN Reason: Hypoglycemia Ceftriaxone Sodium 2 gm/ (Sodium Chloride) 100 mls @ 200 mls/hr IVPB 0300,1500 [facility] Last Admin: 06/27/18 02:21 Dose: 100 mls Insulin Human Regular (Humulin R) 0 units SC .MILD SLIDING SCALE PRN PRN Reason: Mild Correctional Scale Last Admin: 06/26/18 20:42 Dose: 2 units Levofloxacin (Levaquin) 500 mg PO 1500 [facility] Last Admin: 06/26/18 15:11 Dose: 500 mg Melatonin (Melatonin) 3 mg PO HS PRN PRN Reason: Insomnia Last Admin: 06/20/18 21:03 Dose: 3 mg Morphine Sulfate (Morphine) 2 mg SLOW IVP Q4H PRN PRN Reason: Moderate Pain (4-6) Nystatin (Mycostatin) 500,000 units SSW QID [facility] Last Admin: 06/27/18 08:05 Dose: 500,000 units Ondansetron HCl (Zofran) 4 mg IVP Q6H PRN PRN Reason: Nausea/Vomiting Polyethylene Glycol (Miralax) 17 gm PO DAILYPRN PRN PRN Reason: Constipation Last Admin: 06/12/18 13:15 Dose: 17 gm Sodium Chloride (Flush - Normal Saline) 10 ml IVF Q12HR [facility] Last Admin: 06/27/18 08:06 Dose: 10 ml Sodium Chloride (Flush - Normal Saline) 10 ml IVF PRN PRN PRN Reason: Saline Flush Last Admin: 06/20/18 04:20 Dose: 10 ml Throat Lozenges (Cepastat Lozenges) 1 keara PO Q2H PRN PRN Reason: Sore Throat Last Admin: 06/23/18 13:34 Dose: 1 keara
[2018-06-27] MEDS ORDERED: Furosemide 40 MG/4 ML VIAL SLOW IVP SCH (17:15)
[2018-06-27] MEDS: Insulin Regular 300 UNITS/3 ML VIAL SC PRN ×2 (17:21→20:31)
[2018-06-27] MEDS: Atorvastatin Calcium 40 MG TAB PO SCH (20:31)
[2018-06-27] MEDS: Melatonin 3 MG TAB PO PRN (21:36)
[2018-06-28] MEDS: cefTRIAXone\\ROCEPHIN 2 GM in Sodium Chloride 0.9% 100 ML IVPB SCH ×2 (05:27→17:13)
[2018-06-28] MEDS: Acetylcysteine 10% 100 MG/ML 30 ml Vial PO SCH ×2 (06:47→18:42)
[2018-06-28] MEDS: Carvedilol 6.25 MG TAB PO SCH ×2 (08:27→17:13)
[2018-06-28] MEDS: Amlodipine 5 MG TAB PO SCH (08:27)
[2018-06-28] MEDS: Aspirin 81 mg Enteric Coated Tablet PO SCH (08:27)
[2018-06-28] MEDS: Benzonatate 100 MG CAP PO SCH ×2 (08:27→21:12)
[2018-06-28] MEDS: Famotidine 20 MG TAB PO SCH (08:27)
[2018-06-28] MEDS: guaiFENesin/DM ER PO SCH ×2 (08:28→21:12)
[2018-06-28] MEDS: Fluticasone Propionate Nasal Spray 16 gm Bottle NASAL SCH ×2 (08:28→21:10)
[2018-06-28] MEDS: Nystatin 500,000 UNITS/5 ML UDCUP SSW SCH ×4 (08:28→21:11)
--- NOTE | 2018-06-28 10:02 | PRG ---
DATE OF SERVICE: 06/28/2018 SUBJECTIVE: The patient is doing reasonably well except for cough. She had chest tube taken out yesterday. OBJECTIVE: VITAL SIGNS: Temperature 98.4, pulse 72, blood pressure 153/81, O2 saturation 93% on 2.5 L. HEENT: Unremarkable. NECK: No JVD. LUNGS: Coarse breath sounds. CARDIAC: S1, S2. Regular. ABDOMEN: Soft. EXTREMITIES: No edema. LABORATORY DATA: No labs were done today. ASSESSMENT: Status post decortication for bilateral empyemas due to Haemophilus influenzae. PLAN: Continue the antibiotics per Dr. Marmolejo' discussion. She is probably ready for rehab. Job ID: [id number]
--- NOTE | 2018-06-28 12:42 | RAD ---
PORTABLE CHEST: 06/28/2018 PROVIDED CLINICAL HISTORY: Status post chest tube removal. COMPARISON: 06/27/2018 FINDINGS: Interval removal of right-sided chest tube. There is no evidence for pneumothorax. There is persist ent bilateral pleural parenchymal opacity. Additional significant interval change, with respect to t he prior examination, is not apparent. IMPRESSION: As above. POS: KANDY
[2018-06-28] MEDS: Insulin Regular 300 UNITS/3 ML VIAL SC PRN (12:57)
--- NOTE | 2018-06-28 15:14 | PDOC.PN ---
- Subjective Encounter Start Date: 06/28/18 Encounter Start Time: 08:20 Pt seen for followup re: empyema. Feels better. - Objective Resuscitation Status - Order Detail: 06/10/18 17:01 Resuscitation Status Routine Resuscitation Status: FULL: Full Resuscitation MAR Reviewed: Yes Vital Signs & Weight: Vital Signs (12 hours) Temp Pulse Resp BP BP BP BP 06/28/18 13:40 79 18 06/28/18 11:35 98.2 F 70 20 149/85 H 06/28/18 10:39 85 20 06/28/18 10:15 155/63 H 06/28/18 08:27 72 153/81 H 06/28/18 07:47 06/28/18 07:34 98.4 F 72 18 153/81 H 06/28/18 06:45 68 18 06/28/18 04:30 98.3 F 68 18 133/82 Pulse Ox Pulse Ox 06/28/18 13:40 94 L 06/28/18 11:35 91 L 06/28/18 10:39 93 L 06/28/18 10:15 91 L 06/28/18 08:27 06/28/18 07:47 93 L 06/28/18 07:34 93 L 06/28/18 06:45 95 06/28/18 04:30 95 Weight Admit Weight 229 lb 1.6 oz Weight 243 lb Most Recent Monitor Data Heart Rate from ECG 65 NIBP 114/53 NIBP BP-Mean 73 Respiration from ECG 17 SpO2 94 I&O: 06/27/18 06/28/18 06/29/18 06:59 06:59 06:59 Intake Total 1930 1700 Output Total 9985 3910 Balance -1914 -2209 Result Diagrams: 06/27/18 05:57 06/27/18 05:57 Additional Labs: Accuchecks 06/28/18 06/27/18 06/27/18 11:12 20:29 15:44 POC Glucose 155 H 165 H 166 H labs reviewed by me Phys Exam - Physical Examination Constitutional: NAD HEENT: moist MMs Neck: supple Respiratory: clear to auscultation bilateral Cardiovascular: RRR Gastrointestinal: soft Neurological: moves all 4 limbs Psychiatric: normal affect Skin: no rash Dx/Plan (1) Empyema lung Code(s): J86.9 - PYOTHORAX WITHOUT FISTULA Status: Acute Comment: Improving , continue levofloxacin at time of discharge (2) Bacteremia Code(s): R78.81 - BACTEREMIA Status: Acute Comment: continue levofloxacin (3) SUDEEP (acute kidney injury) Code(s): N17.9 - ACUTE KIDNEY FAILURE, UNSPECIFIED Status: Resolved (4) Acute metabolic encephalopathy Code(s): G93.41 - METABOLIC ENCEPHALOPATHY Status: Resolved - Plan * . Replace potassium Await SNU Review of Systems - Review of Systems Respiratory: Cough, Sputum. negative: Dry, Shortness of Breath, Hemoptysis, SOB with Excertion, Pleuritic Pain, Wheezing Cardiovascular: negative: chest pain, palpitations, orthopnea, paroxysmal nocturnal dyspnea, edema, light headedness - Medications/Allergies Allergies/Adverse Reactions: Allergies Allergy/AdvReac Type Severity Reaction Status Date / Time Penicillins Allergy Verified 06/10/18 21:44 sulfamethoxazole Allergy Verified 06/10/18 21:44 [From Bactrim] trimethoprim [From Bactrim] Allergy Verified 06/10/18 21:44 Medications: Current Medications Acetaminophen (Tylenol) 650 mg PO Q4H PRN PRN Reason: Headache/Fever/Mild Pain (1-3) Hydrocodone Bitart/Acetaminophen ([place] 5/325) 1 tab PO Q4H PRN PRN Reason: Mild Pain (1-3) Last Admin: 06/25/18 13:44 Dose: 1 tab Hydrocodone Bitart/Acetaminophen ([place] 5/325) 2 tab PO Q4H PRN PRN Reason: Moderate Pain (4-6) Last Admin: 06/24/18 17:35 Dose: 2 tab Acetylcysteine (Mucomyst 10% (Oral Or Inh)) 600 mg PO BID-RT [facility] Last Admin: 06/28/18 06:47 Dose: 600 mg Albuterol/Ipratropium (Duoneb) 3 ml EZPAP [id number] [facility] Last Admin: 06/28/18 13:40 Dose: 3 ml Albuterol/Ipratropium (Duoneb) 3 ml NEB [id number] PRN PRN Reason: Wheezing Last Admin: 06/23/18 00:20 Dose: 3 ml Amlodipine Besylate (Norvasc) [address] [facility] Last Admin: 06/28/18 08:27 Dose: 5 mg Aspirin (Ecotrin) [address] [facility] Last Admin: 06/28/18 08:27 Dose: 81 mg Atorvastatin Calcium (Lipitor) [address] [facility] Last Admin: 06/27/18 20:31 Dose: 40 mg Benzonatate (Tessalon) [address] [facility] Last Admin: 06/28/18 08:27 Dose: 100 mg Carvedilol (Coreg) 6.25 mg PO BID-[facility] Last Admin: 06/28/18 08:27 Dose: 6.25 mg Clonidine (Catapres) 0.1 mg PO Q4H PRN PRN Reason: FOR SBP > 170mmHg Last Admin: 06/17/18 04:37 Dose: 0.1 mg Dextrose/Water (Dextrose 50%) 25 gm SLOW IVP PRN PRN PRN Reason: Hypoglycemia Famotidine (Pepcid) [address] [facility] Last Admin: 06/28/18 08:27 Dose: 20 mg Fluticasone Propionate (Flonase Nasal [place]) [address] [facility] Last Admin: 06/28/18 08:28 Dose: 2 spray Glucagon (Glucagon) 1 mg IM PRN PRN PRN Reason: Hypoglycemia Guaifenesin/Dextromethorphan (Mucinex Dm) [address] [facility] Last Admin: 06/28/18 08:28 Dose: 1 tab Dextrose/Water (D5w) 1,000 mls @ 0 mls/hr IV .Q0M PRN PRN Reason: Hypoglycemia Ceftriaxone Sodium 2 gm/ (Sodium Chloride) 100 mls @ 200 mls/hr IVPB 0600,1800 [facility] Last Admin: 06/28/18 05:27 Dose: 100 mls Insulin Human Regular (Humulin R) 0 units SC .MILD SLIDING SCALE PRN PRN Reason: Mild Correctional Scale Last Admin: 06/28/18 12:57 Dose: 2 units Levofloxacin (Levaquin) [address] [facility] Last Admin: 06/27/18 16:44 Dose: 500 mg Melatonin (Melatonin) 3 mg PO HS PRN PRN Reason: Insomnia Last Admin: 06/27/18 21:36 Dose: 3 mg Morphine Sulfate (Morphine) 2 mg SLOW IVP Q4H PRN PRN Reason: Moderate Pain (4-6) Nystatin (Mycostatin) 500,[address] [facility] Last Admin: 06/28/18 12:57 Dose: 500,000 units Ondansetron HCl (Zofran) 4 mg IVP Q6H PRN PRN Reason: Nausea/Vomiting Polyethylene Glycol (Miralax) 17 gm PO DAILYPRN PRN PRN Reason: Constipation Last Admin: 06/12/18 13:15 Dose: 17 gm Sodium Chloride (Flush - Normal Saline) [address] [facility] Last Admin: 06/27/18 20:35 Dose: 10 ml Sodium Chloride (Flush - Normal Saline) 10 ml IVF PRN PRN PRN Reason: Saline Flush Last Admin: 06/20/18 04:20 Dose: 10 ml Throat Lozenges (Cepastat Lozenges) 1 keara PO Q2H PRN PRN Reason: Sore Throat Last Admin: 06/23/18 13:34 Dose: 1 keara
[2018-06-28] MEDS ORDERED: Potassium Chloride 20 MEQ TAB PO SCH (15:30)
[2018-06-28] MEDS ORDERED: Guaifenesin DM 100-10/5 ML UDCUP PO PRN (17:14)
--- NOTE | 2018-06-28 19:01 | PRG ---
DATE OF SERVICE: 06/28/2018 SUBJECTIVE: Sitting up by the bedside. Still looks pretty tight for breathing. She was able. She had a bowel movement which was formed, a little bit of chest pain. All the chest tubes are out now. No abdominal pain. OBJECTIVE: VITAL SIGNS: T-max 98.7, blood pressure 140/80, pulse 71, respirations 18. GENERAL: Awake, alert, still does not appear very well, but she is not in any distress. She is chronically ill appearing. HEENT: Somewhat pale conjunctivae. Oral cavity is normal. Neck, not tender. LUNGS: With quite diminished breath sounds on the right side and on the left side, a little bit better. Rhonchi noted as well. HEART: S1 and S2. Regular rate. ABDOMEN: Soft, not distended. EXTREMITIES: Moves all extremities. LABORATORY DATA: White cell count 6.7, hemoglobin 9.8, platelets 217, 75% neutrophils. ASSESSMENT AND DISCUSSION: Severe Haemophilus influenzae infection starting in the oral cavity, probably extending toward the retropharyngeal space and then mediastinum and then bilateral pleural involvement with empyema, status post bilateral decortication. Finally now, she seems to be improving, but still there are some concerns, particularly in the phase of possible mediastinitis. I would eventually want to order a CT chest that she could not tolerate 2 days ago. Job ID: [id number]
[2018-06-28] MEDS: Melatonin 3 MG TAB PO PRN (21:11)
[2018-06-28] MEDS: Atorvastatin Calcium 40 MG TAB PO SCH (21:12)
[2018-06-29] MEDS: cefTRIAXone\\ROCEPHIN 2 GM in Sodium Chloride 0.9% 100 ML IVPB SCH ×3 (05:44→17:28)
[2018-06-29] MEDS: Acetylcysteine 10% 100 MG/ML 30 ml Vial PO SCH ×2 (05:55→19:00)
[2018-06-29] MEDS: Aspirin 81 mg Enteric Coated Tablet PO SCH (08:51)
[2018-06-29] MEDS: Carvedilol 6.25 MG TAB PO SCH ×2 (08:51→17:27)
[2018-06-29] MEDS: Benzonatate 100 MG CAP PO SCH ×2 (08:51→21:28)
[2018-06-29] MEDS: Amlodipine 5 MG TAB PO SCH (08:51)
[2018-06-29] MEDS: Famotidine 20 MG TAB PO SCH (08:51)
[2018-06-29] MEDS: guaiFENesin/DM ER PO SCH ×2 (08:51→21:28)
[2018-06-29] MEDS: Nystatin 500,000 UNITS/5 ML UDCUP SSW SCH ×4 (08:59→21:28)
[2018-06-29] MEDS: Fluticasone Propionate Nasal Spray 16 gm Bottle NASAL SCH (09:07)
--- NOTE | 2018-06-29 09:25 | PRG ---
DATE OF SERVICE: 06/29/2018 SUBJECTIVE: The patient is still having some coughing, but overall feels better and starting to ambulate more. OBJECTIVE: VITAL SIGNS: Temperature 97.8, pulse 65, respirations 20, O2 saturation 95% on 2 L, and blood pressure 141/81. HEENT: Unremarkable. NECK: No adenopathy or JVD. LUNGS: Coarse rhonchi bilaterally. CARDIAC: S1 and S2, regular. ABDOMEN: Soft. EXTREMITIES: No edema. LABORATORY DATA: White blood cell count 6.7, hematocrit 29.7, and platelet count 217. Chest x-ray from yesterday demonstrates some residual chronic changes on the right. ASSESSMENT: 1. Status post bilateral empyemas due to Haemophilus influenzae. 2. Probable retropharyngeal abscess at time of admission, which seems to improve with antibiotics. PLAN: The patient will continue antibiotics for [address] Marmolejo' recommendations. She is ready for rehabilitation placement. Job ID: [id number]
[2018-06-29] MEDS: Insulin Regular 300 UNITS/3 ML VIAL SC PRN (12:09)
--- NOTE | 2018-06-29 12:19 | PDOC.PN ---
- Subjective Encounter Start Date: 06/29/18 Encounter Start Time: 12:17 Subjective: feels better but still wet cough and congestion -: no CP.easily SOB w exertion.weakness - Objective Resuscitation Status - Order Detail: 06/10/18 17:01 Resuscitation Status Routine Resuscitation Status: FULL: Full Resuscitation MAR Reviewed: Yes Vital Signs & Weight: Vital Signs (12 hours) Temp Pulse Resp BP BP Pulse Ox 06/29/18 11:00 98.3 F 65 22 H 148/82 H 93 L 06/29/18 10:02 74 20 93 L 06/29/18 07:23 97.8 F 65 20 141/81 H 95 06/29/18 05:55 68 18 93 L 06/29/18 04:30 98.3 F 64 18 151/78 H 95 Weight Admit Weight 229 lb 1.6 oz Weight 243 lb Most Recent Monitor Data Heart Rate from ECG 65 NIBP 114/53 NIBP BP-Mean 73 Respiration from ECG 17 SpO2 94 I&O: 06/28/18 06/29/18 06/30/18 06:59 06:59 06:59 Intake Total 1700 2275 Output Total 3910 4400 Balance -2210 -2125 Result Diagrams: 06/27/18 05:57 06/27/18 05:57 Additional Labs: Accuchecks 06/29/18 06/28/18 06/28/18 11:05 21:09 16:10 POC Glucose 188 H 141 H 143 H 06/28/18 05:25 POC Glucose 104 Microbiology 06/10/18 22:55 Throat Group A Streptococcus Culture - Final 06/10/18 22:10 Throat Group A Streptococcus Screen ([facility]) - Final 06/10/18 17:51 Venous blood - Right Hand Blood Culture - Final Haemophilus influenzae 06/10/18 17:49 Venous blood - Left Arm Blood Culture - Final Haemophilus influenzae 06/22/18 Unknown Pleural fluid Body Fluid Culture - Final 06/22/18 Unknown Pleural fluid Acid Fast Bacilli Smear - Final 06/22/18 12:20 Pleural - Right Body Fluid Culture - Final 06/13/18 08:57 Pleural fluid Body Fluid Culture - Final 06/13/18 08:57 Pleural fluid Acid Fast Bacilli Smear - Final Laboratory Tests 06/24/18 06/25/18 06/26/18 05:41 05:16 05:55 WBC 14.7 H 11.5 H 7.8 06/27/18 05:57 WBC 6.7 Phys Exam - Physical Examination Constitutional: NAD HEENT: PERRLA, moist MMs, sclera anicteric, oral pharynx no lesions Neck: no nodes, no JVD, supple, full ROM Respiratory: no wheezing, no rales, no rhonchi, clear to auscultation bilateral reduced at bases w coarse Cardiovascular: RRR, no significant murmur Gastrointestinal: soft, non-tender, no distention, positive bowel sounds Musculoskeletal: no edema, pulses present Neurological: non-focal, normal sensation, moves all 4 limbs Dx/Plan (1) H. influenzae septicemia Code(s): A41.3 - SEPSIS DUE TO HEMOPHILUS INFLUENZAE Status: Acute (2) Empyema lung Code(s): J86.9 - PYOTHORAX WITHOUT FISTULA Status: Acute Comment: Improving , continue levofloxacin at time of discharge.s/p decortication and placement and subsequent removal of chest tube (3) Acute respiratory failure with hypoxia Code(s): J96.01 - ACUTE RESPIRATORY FAILURE WITH HYPOXIA Status: Acute Comment: improving (4) Sepsis Code(s): A41.9 - SEPSIS, UNSPECIFIED ORGANISM Status: Acute Qualifiers: Sepsis type: Haemophilus influenzae Qualified Code(s): A41.3 - Sepsis due to Hemophilus influenzae (5) SUDEEP (acute kidney injury) Code(s): N17.9 - ACUTE KIDNEY FAILURE, UNSPECIFIED Status: Resolved Comment : improved - Plan continue antibiotics, PT/OT, respiratory therapy, incentive spirometry, out of bed/ambulate, DVT proph w/SCDs cont IV ABx.nebs,O2 prn,awaiting rehab placement.HD stable -: restart select home meds,including ASA,statin,protonix,flonase -: ARB stopped d/t SUDEEP. started on BB & amlodipine.titrate for BP -: Am labs -: AVOIDABLE DAY #1 * . Review of Systems - Review of Systems Respiratory: Cough, SOB with Excertion, Sputum. negative: Dry, Shortness of Breath, Hemoptysis, Pleuritic Pain, Wheezing Cardiovascular: negative: chest pain, palpitations, orthopnea, paroxysmal nocturnal dyspnea, edema, light headedness, other Gastrointestinal: negative: Nausea, Vomiting, Abdominal Pain, Diarrhea, Constipation, Melena, Hematochezia, Other Genitourinary: negative: Dysuria, Frequency, Incontinence, Hematuria, Retention , Other Musculoskeletal: negative: Neck Pain, Shoulder Pain, Arm Pain, Back Pain, Hand Pain, Leg Pain, Foot Pain, Other Neurological: negative: Weakness, Numbness, Incoordination, Change in Speech, Confusion, Seizures, Other - Medications/Allergies Allergies/Adverse Reactions: Allergies Allergy/AdvReac Type Severity Reaction Status Date / Time Penicillins Allergy Verified 06/10/18 21:44 sulfamethoxazole Allergy Verified 06/10/18 21:44 [From Bactrim] trimethoprim [From Bactrim] Allergy Verified 06/10/18 21:44 Medications: Current Medications Acetaminophen (Tylenol) 650 mg PO Q4H PRN PRN Reason: Headache/Fever/Mild Pain (1-3) Hydrocodone Bitart/Acetaminophen ([place] 5/325) 1 tab PO Q4H PRN PRN Reason: Mild Pain (1-3) Last Admin: 06/25/18 13:44 Dose: 1 tab Hydrocodone Bitart/Acetaminophen ([place] 5/325) 2 tab PO Q4H PRN PRN Reason: Moderate Pain (4-6) Last Admin: 06/24/18 17:35 Dose: 2 tab Acetylcysteine (Mucomyst 10% (Oral Or Inh)) 600 mg PO BID-RT [facility] Last Admin: 06/29/18 05:55 Dose: 600 mg Albuterol/Ipratropium (Duoneb) 3 ml EZPAP [id number] [facility] Last Admin: 06/29/18 10:02 Dose: 3 ml Albuterol/Ipratropium (Duoneb) 3 ml NEB [id number] PRN PRN Reason: Wheezing Last Admin: 06/23/18 00:20 Dose: 3 ml Amlodipine Besylate (Norvasc) 5 mg PO DAILY [facility] Last Admin: 06/29/18 08:51 Dose: 5 mg Aspirin (Ecotrin) 81 mg PO DAILY [facility] Last Admin: 06/29/18 08:51 Dose: 81 mg Atorvastatin Calcium (Lipitor) 40 mg PO HS [facility] Last Admin: 06/28/18 21:12 Dose: 40 mg Benzonatate (Tessalon) 100 mg PO Q12HR [facility] Last Admin: 06/29/18 08:51 Dose: 100 mg Carvedilol (Coreg) 6.25 mg PO BID-WM [facility] Last Admin: 06/29/18 08:51 Dose: 6.25 mg Clonidine (Catapres) 0.1 mg PO Q4H PRN PRN Reason: FOR SBP > 170mmHg Last Admin: 06/17/18 04:37 Dose: 0.1 mg Dextrose/Water (Dextrose 50%) 25 gm SLOW IVP PRN PRN PRN Reason: Hypoglycemia Famotidine (Pepcid) 20 mg PO DAILY [facility] Last Admin: 06/29/18 08:51 Dose: 20 mg Fluticasone Propionate (Flonase Nasal [place]) 1 gm NASAL BID [facility] Last Admin: 06/29/18 09:07 Dose: 2 spray Glucagon (Glucagon) 1 mg IM PRN PRN PRN Reason: Hypoglycemia Guaifenesin/Dextromethorphan (Mucinex Dm) 1 tab PO BID [facility] Last Admin: 06/29/18 08:51 Dose: 1 tab Guaifenesin/Dextromethorphan (Robitussin Dm) 15 ml PO Q4H PRN PRN Reason: Cough Dextrose/Water (D5w) 1,000 mls @ 0 mls/hr IV .Q0M PRN PRN Reason: Hypoglycemia Ceftriaxone Sodium 2 gm/ (Sodium Chloride) 100 mls @ 200 mls/hr IVPB 0600,1800 [facility] Last Admin: 06/29/18 09:08 Dose: 100 mls Insulin Human Regular (Humulin R) 0 units SC .MILD SLIDING SCALE PRN PRN Reason: Mild Correctional Scale Last Admin: 06/29/18 12:09 Dose: 2 units Levofloxacin (Levaquin) 500 mg PO 1500 [facility] Last Admin: 06/28/18 15:34 Dose: 500 mg Melatonin (Melatonin) 3 mg PO HS PRN PRN Reason: Insomnia Last Admin: 06/28/18 21:11 Dose: 3 mg Morphine Sulfate (Morphine) 2 mg SLOW IVP Q4H PRN PRN Reason: Moderate Pain (4-6) Nystatin (Mycostatin) 500,000 units SSW QID [facility] Last Admin: 06/29/18 12:09 Dose: 500,000 units Ondansetron HCl (Zofran) 4 mg IVP Q6H PRN PRN Reason: Nausea/Vomiting Polyethylene Glycol (Miralax) 17 gm PO DAILYPRN PRN PRN Reason: Constipation Last Admin: 06/12/18 13:15 Dose: 17 gm Sodium Chloride (Flush - Normal Saline) 10 ml IVF Q12HR [facility] Last Admin: 06/29/18 08:51 Dose: 10 ml Sodium Chloride (Flush - Normal Saline) 10 ml IVF PRN PRN PRN Reason: Saline Flush Last Admin: 06/20/18 04:20 Dose: 10 ml Throat Lozenges (Cepastat Lozenges) 1 keara PO Q2H PRN PRN Reason: Sore Throat Last Admin: 06/23/18 13:34 Dose: 1 keara
[2018-06-29] MEDS ORDERED: Fluticasone Propionate Nasal Spray 16 gm Bottle NASAL PRN (12:21)
[2018-06-29] MEDS: Montelukast Sodium 10 mg Tablet PO SCH (21:28)
[2018-06-29] MEDS: Atorvastatin Calcium 40 MG TAB PO SCH (21:28)
[2018-06-29] MEDS: Melatonin 3 MG TAB PO PRN (21:44)
[2018-06-30] MEDS: cefTRIAXone\\ROCEPHIN 2 GM in Sodium Chloride 0.9% 100 ML IVPB SCH ×2 (06:09→18:00)
[2018-06-30] MEDS: Acetylcysteine 10% 100 MG/ML 30 ml Vial PO SCH ×2 (06:27→18:59)
[2018-06-30 07:07] LABS: Anion Gap 13 mmol/L (10-20); BUN (Urea Nitrogen) 7 mg/dL (9.8-20.1); Calc. Creatinine Clearance 179 mL/min (70-130); Calcium 7.9 mg/dL (7.8-10.44); Carbon Dioxide 30 mmol/L (23-31); Chloride 88 mmol/L (98-107); Estimated GFR-MDRD Greater than 90; Glucose 86 mg/dL (80-115); Potassium 3.3 mmol/L (3.5-5.1); Sodium 128 mmol/L (136-145)
[2018-06-30] MEDS: Benzonatate 100 MG CAP PO SCH ×2 (08:45→21:28)
[2018-06-30] MEDS: Fenofibrate Nanocrystallized 145 MG TAB PO SCH (08:45)
[2018-06-30] MEDS: Famotidine 20 MG TAB PO SCH ×2 (08:45→08:50)
[2018-06-30] MEDS: Carvedilol 6.25 MG TAB PO SCH ×2 (08:45→17:59)
[2018-06-30] MEDS: guaiFENesin/DM ER PO SCH ×2 (08:45→21:28)
[2018-06-30] MEDS: Nystatin 500,000 UNITS/5 ML UDCUP SSW SCH ×4 (08:45→21:28)
[2018-06-30] MEDS: Amlodipine 5 MG TAB PO SCH (08:46)
[2018-06-30] MEDS ORDERED: Non-Formulary Item 1 EACH (Fenofibric Acid (Choline) [Trilipix] 135 MG) PO SCH (09:00)
[2018-06-30] MEDS: Potassium Chloride 20 MEQ TAB PO SCH ×2 (10:20→14:14)
--- NOTE | 2018-06-30 14:30 | PDOC.PN ---
- Subjective Encounter Start Date: 06/30/18 Encounter Start Time: 14:28 Subjective: feels a littl ebetter.still wet cough & congestion -: no CP - Objective Resuscitation Status - Order Detail: 06/10/18 17:01 Resuscitation Status Routine Resuscitation Status: FULL: Full Resuscitation MAR Reviewed: Yes Vital Signs & Weight: Vital Signs (12 hours) Temp Pulse Resp BP Pulse Ox 06/30/18 10:55 97.8 F 63 20 125/78 96 06/30/18 10:24 72 20 06/30/18 07:26 98.1 F 68 22 H 144/84 H 99 06/30/18 06:29 93 L 06/30/18 06:25 66 20 93 L 06/30/18 04:00 97.9 F 66 18 147/85 H 96 Weight Admit Weight 229 lb 1.6 oz Weight 243 lb Most Recent Monitor Data Heart Rate from ECG 65 NIBP 114/53 NIBP BP-Mean 73 Respiration from ECG 17 SpO2 94 I&O: 06/29/18 06/30/18 07/01/18 06:59 06:59 06:59 Intake Total 2275 2900 Output Total 4400 3050 Balance -2125 -150 Result Diagrams: 06/27/18 05:57 06/30/18 06:00 Additional Labs: Accuchecks 06/30/18 06/30/18 06/29/18 10:51 06:09 21:25 POC Glucose 168 H 106 104 06/29/18 06/29/18 15:34 05:47 POC Glucose 113 H 102 Microbiology 06/10/18 22:55 Throat Group A Streptococcus Culture - Final 06/10/18 22:10 Throat Group A Streptococcus Screen ([facility]) - Final 06/10/18 17:51 Venous blood - Right Hand Blood Culture - Final Haemophilus influenzae 06/10/18 17:49 Venous blood - Left Arm Blood Culture - Final Haemophilus influenzae 06/22/18 Unknown Pleural fluid Body Fluid Culture - Final 06/22/18 Unknown Pleural fluid Acid Fast Bacilli Smear - Final 06/22/18 12:20 Pleural - Right Body Fluid Culture - Final 06/13/18 08:57 Pleural fluid Body Fluid Culture - Final 06/13/18 08:57 Pleural fluid Acid Fast Bacilli Smear - Final Laboratory Tests 06/13/18 06/15/18 06/19/18 04:04 04:13 04:08 Sodium Creatinine 3.00 H 2.74 H 1.10 06/23/18 06/25/18 06/26/18 05:40 05:16 05:55 Sodium 131 L 132 L Creatinine 0.84 0.64 06/27/18 05:57 Sodium 133 L Creatinine 0.58 L Phys Exam - Physical Examination Constitutional: NAD HEENT: PERRLA, moist MMs, sclera anicteric, oral pharynx no lesions Neck: no nodes, no JVD, supple, full ROM coarse b/l and reduced at bases Cardiovascular: RRR, no significant murmur Gastrointestinal: soft, non-tender, no distention, positive bowel sounds Musculoskeletal: no edema, pulses present Neurological: non-focal, normal sensation, moves all 4 limbs Psychiatric: normal affect, A&O x 3 Skin: no rash Dx/Plan (1) H. influenzae septicemia Code(s): A41.3 - SEPSIS DUE TO HEMOPHILUS INFLUENZAE Status: Acute (2) Empyema lung Code(s): J86.9 - PYOTHORAX WITHOUT FISTULA Status: Acute Comment: Improving , continue levofloxacin at time of discharge.s/p decortication and placement and subsequent removal of chest tube (3) Acute respiratory failure with hypoxia Code(s): J96.01 - ACUTE RESPIRATORY FAILURE WITH HYPOXIA Status: Acute Comment: improving (4) Sepsis Code(s): A41.9 - SEPSIS, UNSPECIFIED ORGANISM Status: Acute Qualifiers: Sepsis type: Haemophilus influenzae Qualified Code(s): A41.3 - Sepsis due to Hemophilus influenzae (5) SUDEEP (acute kidney injury) Code(s): N17.9 - ACUTE KIDNEY FAILURE, UNSPECIFIED Status: Resolved Comment : improved - Plan respiratory therapy, incentive spirometry, DVT proph w/SCDs awaiting rehab placement.cont IV ABx. -: will get CT scan tomorrow if pt can tolerate it -: hemodynamically stable. -: supportive care * . Review of Systems - Review of Systems Constitutional: weakness, malaise. negative: fever, chills, sweats, other ENT: negative: Ear Pain, Ear Discharge, Nose Pain, Nose Discharge, Nose Congestion, Mouth Pain, Mouth Swelling, Throat Pain, Throat Swelling, Other Respiratory: Cough, SOB with Excertion, Sputum. negative: Dry, Shortness of Breath, Hemoptysis, Pleuritic Pain, Wheezing Cardiovascular: negative: chest pain, palpitations, orthopnea, paroxysmal nocturnal dyspnea, edema, light headedness, other Gastrointestinal: negative: Nausea, Vomiting, Abdominal Pain, Diarrhea, Constipation, Melena, Hematochezia, Other Genitourinary: negative: Dysuria, Frequency, Incontinence, Hematuria, Retention , Other Musculoskeletal: negative: Neck Pain, Shoulder Pain, Arm Pain, Back Pain, Hand Pain, Leg Pain, Foot Pain, Other Neurological: negative: Weakness, Numbness, Incoordination, Change in Speech, Confusion, Seizures, Other - Medications/Allergies Allergies/Adverse Reactions: Allergies Allergy/AdvReac Type Severity Reaction Status Date / Time Penicillins Allergy Verified 06/10/18 21:44 sulfamethoxazole Allergy Verified 06/10/18 21:44 [From Bactrim] trimethoprim [From Bactrim] Allergy Verified 06/10/18 21:44 Medications: Current Medications Acetaminophen (Tylenol) 650 mg PO Q4H PRN PRN Reason: Headache/Fever/Mild Pain (1-3) Hydrocodone Bitart/Acetaminophen ([place] 5/325) 1 tab PO Q4H PRN PRN Reason: Mild Pain (1-3) Last Admin: 06/25/18 13:44 Dose: 1 tab Hydrocodone Bitart/Acetaminophen ([place] 5/325) 2 tab PO Q4H PRN PRN Reason: Moderate Pain (4-6) Last Admin: 06/24/18 17:35 Dose: 2 tab Acetylcysteine (Mucomyst 10% (Oral Or Inh)) 600 mg PO BID-RT [facility] Last Admin: 06/30/18 06:27 Dose: 600 mg Albuterol/Ipratropium (Duoneb) 3 ml EZPAP [id number] [facility] Last Admin: 06/30/18 10:24 Dose: 3 ml Albuterol/Ipratropium (Duoneb) 3 ml NEB [id number] PRN PRN Reason: Wheezing Last Admin: 06/23/18 00:20 Dose: 3 ml Amlodipine Besylate (Norvasc) 5 mg PO DAILY [facility] Last Admin: 06/30/18 08:46 Dose: 5 mg Aspirin (Aspirin Chewable) 81 mg PO DAILY [facility] Last Admin: 06/30/18 08:46 Dose: 81 mg Atorvastatin Calcium (Lipitor) 40 mg PO HS [facility] Last Admin: 06/29/18 21:28 Dose: 40 mg Benzonatate (Tessalon) 100 mg PO Q12HR [facility] Last Admin: 06/30/18 08:45 Dose: 100 mg Carvedilol (Coreg) 6.25 mg PO BID-[facility] Last Admin: 06/30/18 08:45 Dose: 6.25 mg Clonidine (Catapres) 0.1 mg PO Q4H PRN PRN Reason: FOR SBP > 170mmHg Last Admin: 06/17/18 04:37 Dose: 0.1 mg Dextrose/Water (Dextrose 50%) 25 gm SLOW IVP PRN PRN PRN Reason: Hypoglycemia Famotidine (Pepcid) 20 mg PO DAILY [facility] Last Admin: 06/30/18 08:50 Dose: Not Given Fenofibrate (Tricor) 145 mg PO DAILY [facility] Last Admin: 06/30/18 08:45 Dose: 145 mg Fluticasone Propionate (Flonase Nasal [place]) 0 gm NASAL BID PRN PRN Reason: Allergies Glucagon (Glucagon) 1 mg IM PRN PRN PRN Reason: Hypoglycemia Guaifenesin/Dextromethorphan (Mucinex Dm) 1 tab PO BID [facility] Last Admin: 06/30/18 08:45 Dose: 1 tab Guaifenesin/Dextromethorphan (Robitussin Dm) 15 ml PO Q4H PRN PRN Reason: Cough Dextrose/Water (D5w) 1,000 mls @ 0 mls/hr IV .Q0M PRN PRN Reason: Hypoglycemia Ceftriaxone Sodium 2 gm/ (Sodium Chloride) 100 mls @ 200 mls/hr IVPB 0600,1800 [facility] Last Admin: 06/30/18 06:09 Dose: 100 mls Insulin Human Regular (Humulin R) 0 units SC .MILD SLIDING SCALE PRN PRN Reason: Mild Correctional Scale Last Admin: 06/29/18 12:09 Dose: 2 units Levofloxacin (Levaquin) 500 mg PO 1500 [facility] Last Admin: 06/30/18 14:11 Dose: 500 mg Melatonin (Melatonin) 3 mg PO HS PRN PRN Reason: Insomnia Last Admin: 06/29/18 21:44 Dose: 3 mg Montelukast Sodium (Singulair) 10 mg PO HS [facility] Last Admin: 06/29/18 21:28 Dose: 10 mg Morphine Sulfate (Morphine) 2 mg SLOW IVP Q4H PRN PRN Reason: Moderate Pain (4-6) Nystatin (Mycostatin) 500,000 units SSW QID [facility] Last Admin: 06/30/18 14:13 Dose: 500,000 units Ondansetron HCl (Zofran) 4 mg IVP Q6H PRN PRN Reason: Nausea/Vomiting Pantoprazole Sodium (Protonix) 40 mg PO DAILY [facility] Last Admin: 06/30/18 08:46 Dose: 40 mg Polyethylene Glycol (Miralax) 17 gm PO DAILYPRN PRN PRN Reason: Constipation Last Admin: 06/12/18 13:15 Dose: 17 gm Sodium Chloride (Flush - Normal Saline) 10 ml IVF Q12HR [facility] Last Admin: 06/30/18 08:50 Dose: 10 ml Sodium Chloride (Flush - Normal Saline) 10 ml IVF PRN PRN PRN Reason: Saline Flush Last Admin: 06/20/18 04:20 Dose: 10 ml Throat Lozenges (Cepastat Lozenges) 1 keara PO Q2H PRN PRN Reason: Sore Throat Last Admin: 06/23/18 13:34 Dose: 1 keara
--- NOTE | 2018-06-30 21:07 | PRG ---
DATE OF SERVICE: 06/30/2018 SUBJECTIVE: Zuleyka Benitez has no complaints. She is sitting at the bedside. Her chest tubes are out. OBJECTIVE: VITAL SIGNS: She is afebrile. Heart rate is 79, respiratory rate is 20, oximetry is 97% on room air, and blood pressure is 121/78. LUNGS: Clear. HEART: Regular rhythm. ABDOMEN: Soft. LABORATORY DATA: White count 3 days ago was 6.7 and hemoglobin was 9.8. Sodium 128, potassium 3.3, chloride 88, bicarb 30, BUN 7, and creatinine 0.56. It is the first time her sodium has been below 130. IMPRESSION: 1. Pneumonia with empyema, status post bilateral chest tube placement. 2. Hyponatremia. This will need to be followed with serial blood draws. I do not see any medicines that might be causing the hyponatremia. We will continue to follow the other physicians. Job ID: [id number] MTDD
[2018-06-30] MEDS: Melatonin 3 MG TAB PO PRN (21:27)
[2018-06-30] MEDS: Atorvastatin Calcium 40 MG TAB PO SCH (21:28)
[2018-06-30] MEDS: Montelukast Sodium 10 mg Tablet PO SCH (21:28)
[2018-07-01 04:51] LABS: #Eosinphils 0.1 thou/uL (0.0-0.7); #Lymphocytes 1.2 thou/uL (1.20-3.40); #Neutrophils 5.4 thou/uL (1.40-6.50); %Basophils 0.5 % (0.0-1.0); %Eosinophils 1.2 % (0.0-10.0); %Lymphocytes 15.4 % (21.0-51.0); %Monocytes 12.6 % (0.0-10.0); %Neutrophils 70.4 % (42.0-75.0); Hemoglobin 9.4 g/dL (12.0-16.0); Mean Corpuscular HGB CONC 32.7 g/dL (32.0-36.0); Mean Corpuscular Hemoglobin 28.5 pg (27.0-31.0); Mean Corpuscular Volume 87.2 fL (78.0-98.0); Mean Platelet Volume 8.4 fL (7.4-10.4); Platelet Count 177 thou/uL (130-400); RBC Distribution Width 13.3 % (11.5-14.5); Red Blood Cell (RBC) Count 3.29 mill/uL (4.20-5.40); White Blood Cell (WBC) Count 7.7 thou/uL (4.8-10.8)
[2018-07-01 05:09] LABS: Anion Gap 10 mmol/L (10-20); BUN (Urea Nitrogen) 8 mg/dL (9.8-20.1); Calc. Creatinine Clearance 147 mL/min (70-130); Calcium 7.8 mg/dL (7.8-10.44); Carbon Dioxide 32 mmol/L (23-31); Chloride 90 mmol/L (98-107); Estimated GFR-MDRD 87; Glucose 102 mg/dL (80-115); Potassium 3.4 mmol/L (3.5-5.1); Sodium 129 mmol/L (136-145)
[2018-07-01] MEDS: Acetylcysteine 10% 100 MG/ML 30 ml Vial PO SCH ×2 (06:51→18:45)
[2018-07-01] MEDS: Nystatin 500,000 UNITS/5 ML UDCUP SSW SCH ×4 (08:57→20:17)
[2018-07-01] MEDS: guaiFENesin/DM ER PO SCH ×2 (08:57→20:17)
[2018-07-01] MEDS: Benzonatate 100 MG CAP PO SCH ×2 (08:57→20:16)
[2018-07-01] MEDS: Famotidine 20 MG TAB PO SCH (08:57)
[2018-07-01] MEDS: Fenofibrate Nanocrystallized 145 MG TAB PO SCH (08:57)
[2018-07-01] MEDS: Carvedilol 6.25 MG TAB PO SCH ×2 (08:58→16:46)
[2018-07-01] MEDS: Amlodipine 5 MG TAB PO SCH (08:58)
[2018-07-01] MEDS: Insulin Regular 300 UNITS/3 ML VIAL SC PRN (11:42)
[2018-07-01] MEDS: cefTRIAXone\\ROCEPHIN 2 GM in Sodium Chloride 0.9% 100 ML IVPB SCH ×2 (12:24→13:04)
--- NOTE | 2018-07-01 13:21 | PDOC.PN ---
- Subjective Encounter Start Date: 07/01/18 Encounter Start Time: 13:18 Subjective: feels much better today.still little SOb but cough better - Objective Resuscitation Status - Order Detail: 06/10/18 17:01 Resuscitation Status Routine Resuscitation Status: FULL: Full Resuscitation MAR Reviewed: Yes Vital Signs & Weight: Vital Signs (12 hours) Temp Pulse Resp BP BP BP Pulse Ox 07/01/18 11:30 80 20 07/01/18 10:57 98.5 F 76 20 120/65 96 07/01/18 08:58 80 129/81 07/01/18 07:51 95 07/01/18 07:10 98.3 F 70 20 129/81 98 07/01/18 06:54 96 07/01/18 06:49 74 20 96 07/01/18 04:00 98.1 F 71 20 116/76 96 Weight Admit Weight 229 lb 1.6 oz Weight 243 lb Most Recent Monitor Data Heart Rate from ECG 65 NIBP 114/53 NIBP BP-Mean 73 Respiration from ECG 17 SpO2 94 I&O: 06/30/18 07/01/18 07/02/18 06:59 06:59 06:59 Intake Total 2900 2550 Output Total 3050 2180 Balance -150 370 Result Diagrams: 07/01/18 04:34 07/01/18 04:34 Additional Labs: Accuchecks 07/01/18 07/01/18 06/30/18 10:53 06:21 22:05 POC Glucose 265 H 108 179 H 06/30/18 06/30/18 15:31 10:51 POC Glucose 135 H 168 H Microbiology 06/10/18 22:55 Throat Group A Streptococcus Culture - Final 06/10/18 22:10 Throat Group A Streptococcus Screen (JOSE [facility]UZ) - Final 06/10/18 17:51 Venous blood - Right Hand Blood Culture - Final Haemophilus influenzae 06/10/18 17:49 Venous blood - Left Arm Blood Culture - Final Haemophilus influenzae 06/22/18 Unknown Pleural fluid Body Fluid Culture - Final 06/22/18 Unknown Pleural fluid Acid Fast Bacilli Smear - Final 06/22/18 12:20 Pleural - Right Body Fluid Culture - Final 06/13/18 08:57 Pleural fluid Body Fluid Culture - Final 06/13/18 08:57 Pleural fluid Acid Fast Bacilli Smear - Final Laboratory Tests 0106/27/18 06/30/18 05:55 05:57 06:00 Sodium 132 L 133 L 128 L 07/01/18 04:34 Sodium 129 L Phys Exam - Physical Examination Constitutional: NAD HEENT: PERRLA, moist MMs, sclera anicteric, oral pharynx no lesions Neck: no nodes, no JVD, supple, full ROM Respiratory: no wheezing, no rales, no rhonchi, clear to auscultation bilateral Cardiovascular: RRR, no significant murmur, no rub Gastrointestinal: soft, non-tender, no distention, positive bowel sounds Musculoskeletal: no edema, pulses present Neurological: non-focal, normal sensation, moves all 4 limbs Psychiatric: normal affect, A&O x 3 Skin: no rash Dx/Plan (1) H. influenzae septicemia Code(s): A41.3 - SEPSIS DUE TO HEMOPHILUS INFLUENZAE Status: Acute (2) Empyema lung Code(s): J86.9 - PYOTHORAX WITHOUT FISTULA Status: Acute Comment: Improving , continue levofloxacin at time of discharge.s/p decortication and placement and subsequent removal of chest tube (3) Acute respiratory failure with hypoxia Code(s): J96.01 - ACUTE RESPIRATORY FAILURE WITH HYPOXIA Status: Acute Comment: improving (4) Sepsis Code(s): A41.9 - SEPSIS, UNSPECIFIED ORGANISM Status: Acute Qualifiers: Sepsis type: Haemophilus influenzae Qualified Code(s): A41.3 - Sepsis due to Hemophilus influenzae (5) SUDEEP (acute kidney injury) Code(s): N17.9 - ACUTE KIDNEY FAILURE, UNSPECIFIED Status: Resolved Comment : improved - Plan continue antibiotics, PT/OT, out of bed/ambulate, DVT proph w/SCDs Ct chest today.. to assess empyema.? mediastinitis -: cont rocephin and levaquin -: hemodynamically stable -: sodium low but better. try free water restriction.suspect SIADH d/t emypema * . Review of Systems - Review of Systems Constitutional: weakness, malaise. negative: fever, chills, sweats, other ENT: negative: Ear Pain, Ear Discharge, Nose Pain, Nose Discharge, Nose Congestion, Mouth Pain, Mouth Swelling, Throat Pain, Throat Swelling, Other Respiratory: Cough, SOB with Excertion Gastrointestinal: negative: Nausea, Vomiting, Abdominal Pain, Diarrhea, Constipation, Melena, Hematochezia, Other Genitourinary: negative: Dysuria, Frequency, Incontinence, Hematuria, Retention , Other Musculoskeletal: negative: Neck Pain, Shoulder Pain, Arm Pain, Back Pain, Hand Pain, Leg Pain, Foot Pain, Other Neurological: negative: Weakness, Numbness, Incoordination, Change in Speech, Confusion, Seizures, Other - Medications/Allergies Allergies/Adverse Reactions: Allergies Allergy/AdvReac Type Severity Reaction Status Date / Time Penicillins Allergy Verified 06/10/18 21:44 sulfamethoxazole Allergy Verified 06/10/18 21:44 [From Bactrim] trimethoprim [From Bactrim] Allergy Verified 06/10/18 21:44 Medications: Current Medications Acetaminophen (Tylenol) 650 mg PO Q4H PRN PRN Reason: Headache/Fever/Mild Pain (1-3) Hydrocodone Bitart/Acetaminophen ([place] 5/325) 1 tab PO Q4H PRN PRN Reason: Mild Pain (1-3) Last Admin: 06/25/18 13:44 Dose: 1 tab Hydrocodone Bitart/Acetaminophen ([place] 5/325) 2 tab PO Q4H PRN PRN Reason: Moderate Pain (4-6) Last Admin: 06/24/18 17:35 Dose: 2 tab Acetylcysteine (Mucomyst 10% (Oral Or Inh)) 600 mg PO BID-RT [facility] Last Admin: 07/01/18 06:51 Dose: 600 mg Albuterol/Ipratropium (Duoneb) 3 ml EZPAP [id number] [facility] Last Admin: 07/01/18 11:30 Dose: 3 ml Albuterol/Ipratropium (Duoneb) 3 ml NEB [id number] PRN PRN Reason: Wheezing Last Admin: 06/23/18 00:20 Dose: 3 ml Amlodipine Besylate (Norvasc) 5 mg PO DAILY [facility] Last Admin: 07/01/18 08:58 Dose: 5 mg Aspirin (Aspirin Chewable) 81 mg PO DAILY [facility] Last Admin: 07/01/18 08:58 Dose: 81 mg Atorvastatin Calcium (Lipitor) 40 mg PO HS [facility] Last Admin: 06/30/18 21:28 Dose: 40 mg Benzonatate (Tessalon) 100 mg PO Q12HR [facility] Last Admin: 07/01/18 08:57 Dose: 100 mg Carvedilol (Coreg) 6.25 mg PO BID-WM [facility] Last Admin: 07/01/18 08:58 Dose: 6.25 mg Clonidine (Catapres) 0.1 mg PO Q4H PRN PRN Reason: FOR SBP > 170mmHg Last Admin: 06/17/18 04:37 Dose: 0.1 mg Dextrose/Water (Dextrose 50%) 25 gm SLOW IVP PRN PRN PRN Reason: Hypoglycemia Famotidine (Pepcid) 20 mg PO DAILY [facility] Last Admin: 07/01/18 08:57 Dose: Not Given Fenofibrate (Tricor) 145 mg PO DAILY [facility] Last Admin: 07/01/18 08:57 Dose: 145 mg Fluticasone Propionate (Flonase Nasal [place]) 0 gm NASAL BID PRN PRN Reason: Allergies Glucagon (Glucagon) 1 mg IM PRN PRN PRN Reason: Hypoglycemia Guaifenesin/Dextromethorphan (Mucinex Dm) 1 tab PO BID [facility] Last Admin: 07/01/18 08:57 Dose: 1 tab Guaifenesin/Dextromethorphan (Robitussin Dm) 15 ml PO Q4H PRN PRN Reason: Cough Dextrose/Water (D5w) 1,000 mls @ 0 mls/hr IV .Q0M PRN PRN Reason: Hypoglycemia Ceftriaxone Sodium 2 gm/ (Sodium Chloride) 100 mls @ 200 mls/hr IVPB 0100,1300 [facility] Last Admin: 07/01/18 13:04 Dose: Not Given Insulin Human Regular (Humulin R) 0 units SC .MILD SLIDING SCALE PRN PRN Reason: Mild Correctional Scale Last Admin: 07/01/18 11:42 Dose: 4 units Levofloxacin (Levaquin) 500 mg PO 1500 [facility] Last Admin: 06/30/18 14:11 Dose: 500 mg Melatonin (Melatonin) 3 mg PO HS PRN PRN Reason: Insomnia Last Admin: 06/30/18 21:27 Dose: 3 mg Montelukast Sodium (Singulair) 10 mg PO HS [facility] Last Admin: 06/30/18 21:28 Dose: 10 mg Morphine Sulfate (Morphine) 2 mg SLOW IVP Q4H PRN PRN Reason: Moderate Pain (4-6) Nystatin (Mycostatin) 500,000 units SSW QID [facility] Last Admin: 07/01/18 12:24 Dose: 500,000 units Ondansetron HCl (Zofran) 4 mg IVP Q6H PRN PRN Reason: Nausea/Vomiting Pantoprazole Sodium (Protonix) 40 mg PO DAILY [facility] Last Admin: 07/01/18 08:57 Dose: 40 mg Polyethylene Glycol (Miralax) 17 gm PO DAILYPRN PRN PRN Reason: Constipation Last Admin: 06/12/18 13:15 Dose: 17 gm Sodium Chloride (Flush - Normal Saline) 10 ml IVF Q12HR [facility] Last Admin: 07/01/18 08:58 Dose: Not Given Sodium Chloride (Flush - Normal Saline) 10 ml IVF PRN PRN PRN Reason: Saline Flush Last Admin: 06/20/18 04:20 Dose: 10 ml Throat Lozenges (Cepastat Lozenges) 1 keara PO Q2H PRN PRN Reason: Sore Throat Last Admin: 06/23/18 13:34 Dose: 1 keara
[2018-07-01] MEDS: Polyethylene Glycol 3350 17 GM Packet PO PRN (14:57)
--- NOTE | 2018-07-01 15:32 | CT ---
CT CHEST WITH IV CONTRAST: 07/01/2018 PROVIDED CLINICAL HISTORY: Mediastinitis and empyema. COMPARISON: CT examination performed on 06/10/2018. FINDINGS: The heart, pericardium, and great vessels demonstrate an unremarkable CT appearance, with the excepti on of trace pericardial fluid. There is a 2.3 cm, somewhat circumscribed focus of soft tissue density present at the right lower lob e, adjacent to the bifurcation of the right lower lobe pulmonary artery. This appears stable with re spect to the prior study. There is bilateral pleural fluid. There is a somewhat complex appearance to the pleural fluid on the right with several small foci of internal gas. There is an enhancing margin to portions of the pleu ra associated with this fluid. There are several loculated foci of pleural fluid present at the post erior aspect of the left hemithorax, also with associated enhancement of the surrounding pleura. Two small, loculated pleural collections are noted at the posterior aspect of the right lung apex. Ther e is subsegmental atelectatic change at both lung bases. The visualized portions of the upper abdomen demonstrate somewhat ill-defined foci of diminished atte nuation involving the right hepatic lobe, which are somewhat linear in configuration. These extend t o the liver capsular, near the dome. Fluid about the right liver margin may be present. The osseous structures demonstrate no concerning osteoblastic or osteolytic lesions. IMPRESSION: 1. Bilateral pleural fluid, some of which appears loculated and with enhancing margins, compatible w ith the provided clinical history of empyema. 2. A 2.3 cm right lower lobe pulmonary nodule. Followup is recommended versus nonemergent PET scan. 3. Fluid density about the right liver margin, along with ill-defined foci of hypodensity involving the right hepatic lobe. Extension of infection cannot be excluded. CT followup should be considered . POS: [facility]
[2018-07-01] MEDS: Acetaminophen 325 MG TAB PO PRN (15:58)
--- NOTE | 2018-07-01 19:35 | PRG ---
DATE OF SERVICE: 07/01/2018 SUBJECTIVE: Ms. Benitez says she feels much better today. She had a CT scan showing bilateral effusions. This is not unexpected. She has had no fever. She says she is feeling well. OBJECTIVE: VITAL SIGNS: Heart rates in the 70s, respiratory rates in the teens , blood pressure is 117/80, and oximetry is 97% on 2 L. We should be trying to wean her to room air. LUNGS: Remarkable for decreased breath sounds at her right base. HEART: Regular rhythm. ABDOMEN: Soft. EXTREMITIES: Without asymmetry. IMPRESSION: Status post bilateral empyemas with Haemophilus influenzae, clinically stable. There is no clinical indication for repeat thoracentesis, chest tube, etc. If she continues to clinically improve, I would not use xrays as a guide. I have explained this to her as well. Job ID: [id number] MTDD
[2018-07-01] MEDS: Atorvastatin Calcium 40 MG TAB PO SCH (20:16)
[2018-07-01] MEDS: Montelukast Sodium 10 mg Tablet PO SCH (20:16)
[2018-07-01] MEDS: Melatonin 3 MG TAB PO PRN (21:11)
[2018-07-02] MEDS: cefTRIAXone\\ROCEPHIN 2 GM in Sodium Chloride 0.9% 100 ML IVPB SCH ×2 (00:32→14:45)
[2018-07-02] MEDS: Acetylcysteine 10% 100 MG/ML 30 ml Vial PO SCH ×2 (06:04→19:16)
[2018-07-02] MEDS: Acetaminophen 325 MG TAB PO PRN ×3 (07:11→20:06)
[2018-07-02] MEDS: Benzonatate 100 MG CAP PO SCH ×2 (08:17→20:06)
[2018-07-02] MEDS: Fenofibrate Nanocrystallized 145 MG TAB PO SCH (08:17)
[2018-07-02] MEDS: Nystatin 500,000 UNITS/5 ML UDCUP SSW SCH ×4 (08:17→20:06)
[2018-07-02] MEDS: Famotidine 20 MG TAB PO SCH (08:17)
[2018-07-02] MEDS: Carvedilol 6.25 MG TAB PO SCH ×2 (08:18→17:56)
[2018-07-02] MEDS: Amlodipine 5 MG TAB PO SCH (08:18)
[2018-07-02] MEDS: guaiFENesin/DM ER PO SCH ×2 (08:18→20:06)
[2018-07-02 08:41] LABS: Anion Gap 15 mmol/L (10-20); BUN (Urea Nitrogen) 8 mg/dL (9.8-20.1); Calc. Creatinine Clearance 159 mL/min (70-130); Calcium 7.8 mg/dL (7.8-10.44); Carbon Dioxide 28 mmol/L (23-31); Chloride 93 mmol/L (98-107); Estimated GFR-MDRD Greater than 90; Glucose 172 mg/dL (80-115); Potassium 3.1 mmol/L (3.5-5.1); Sodium 133 mmol/L (136-145)
--- NOTE | 2018-07-02 10:09 | PRG ---
DATE OF SERVICE: 07/02/2018 PULMONARY CRITICAL CARE PROGRESS NOTE SUBJECTIVE: She feels okay. She is starting to increase her activity more. CT yesterday showed some continued pleural fluid in both bases. This is post decortication. She says she is not having pain in that region. OBJECTIVE: VITAL SIGNS: Temperature is 98.2, pulse 84, blood pressure 135/79, and O2 saturation 97%. HEENT: Unremarkable. NECK: No JVD. LUNGS: Slightly diminished breath sounds at both bases. CARDIAC: S1 and S2, regular. ABDOMEN: Soft. EXTREMITIES: No edema. LABORATORY DATA: Sodium 133, potassium 3.1, chloride 93, CO2 of 28, BUN 8, creatinine 0.6, and glucose 172. ASSESSMENT: 1. Status post bilateral empyemas from H flu. 2. Status post bilateral decortication. PLAN: I think the residual pleural fluid will take some time to dissipate. The patient is headed to a swing bed later this week. She will continue antibiotics as long as Dr. Marmolejo says she needs it. She will need to repeat imaging in 3 to 4 weeks. Main issue now is to increase her activity. Job ID: [id number]
[2018-07-02] MEDS: Insulin Regular 300 UNITS/3 ML VIAL SC PRN (10:56)
--- NOTE | 2018-07-02 11:15 | PDOC.PN ---
- Subjective Encounter Start Date: 07/02/18 Encounter Start Time: 11:14 Subjective: feels much better -: no CP/a little stronger.walked to bathroom - Objective Resuscitation Status - Order Detail: 06/10/18 17:01 Resuscitation Status Routine Resuscitation Status: FULL: Full Resuscitation MAR Reviewed: Yes Vital Signs & Weight: Vital Signs (12 hours) Temp Pulse Resp BP BP BP Pulse Ox 07/02/18 09:38 97 07/02/18 09:36 81 18 95 07/02/18 08:18 84 135/79 07/02/18 07:26 98.2 F 80 18 135/79 97 07/02/18 06:03 78 18 96 07/02/18 04:31 97.9 F 73 20 131/81 95 07/02/18 00:26 98.4 F 79 20 115/73 94 L Weight Admit Weight 229 lb 1.6 oz Weight 243 lb Most Recent Monitor Data Heart Rate from ECG 65 NIBP 114/53 NIBP BP-Mean 73 Respiration from ECG 17 SpO2 94 I&O: 07/01/18 07/02/18 07/03/18 06:59 06:59 06:59 Intake Total 2550 1220 Output Total 2180 2800 Balance 370 -1580 Result Diagrams: 07/01/18 04:34 07/02/18 08:09 Additional Labs: Accuchecks 07/02/18 07/02/18 07/01/18 10:53 05:44 21:48 POC Glucose 189 H 120 H 212 H 07/01/18 07/01/18 06/30/18 15:44 10:53 22:05 POC Glucose 122 H 265 H 179 H Phys Exam - Physical Examination Constitutional: NAD HEENT: PERRLA, moist MMs, sclera anicteric, oral pharynx no lesions Neck: no nodes, no JVD, supple, full ROM Respiratory: no wheezing, no rales, no rhonchi, clear to auscultation bilateral Cardiovascular: RRR, no significant murmur Gastrointestinal: soft, non-tender, no distention, positive bowel sounds Musculoskeletal: no edema, pulses present Neurological: non-focal, normal sensation, moves all 4 limbs Psychiatric: normal affect, A&O x 3 Skin: no rash Dx/Plan (1) H. influenzae septicemia Code(s): A41.3 - SEPSIS DUE TO HEMOPHILUS INFLUENZAE Status: Acute (2) Empyema lung Code(s): J86.9 - PYOTHORAX WITHOUT FISTULA Status: Acute Comment: Improving , continue antibiotic per ID at time of discharge.s/p decortication and placement and subsequent removal of chest tube (3) Hyponatremia Code(s): E87.1 - HYPO-OSMOLALITY AND HYPONATREMIA Status: Acute (4) Acute respiratory failure with hypoxia Code(s): J96.01 - ACUTE RESPIRATORY FAILURE WITH HYPOXIA Status: Acute Comment: improving (5) Sepsis Code(s): A41.9 - SEPSIS, UNSPECIFIED ORGANISM Status: Acute Qualifiers: Sepsis type: Haemophilus influenzae Qualified Code(s): A41.3 - Sepsis due to Hemophilus influenzae (6) SUDEEP (acute kidney injury) Code(s): N17.9 - ACUTE KIDNEY FAILURE, UNSPECIFIED Status: Resolved Comment : improved - Plan continue antibiotics, PT/OT, respiratory therapy, incentive spirometry, out of bed/ambulate, DVT proph w/SCDs Ct scan results noted.some persistant empyema.cont Abx per ID -: no need for Chest tube/thoracentesis per PCCM -: HD stable.sodium better w fluid restriction.replace potassium & recheck -: Placement when done -: DC ABx per ID. may need PICC line * .DC dias per pt request.encouraged to ambulate more. Review of Systems - Review of Systems Constitutional: weakness, malaise. negative: fever, chills, sweats, other Respiratory: SOB with Excertion. negative: Cough, Dry, Shortness of Breath, Hemoptysis, Pleuritic Pain, Sputum, Wheezing Cardiovascular: negative: chest pain, palpitations, orthopnea, paroxysmal nocturnal dyspnea, edema, light headedness, other Gastrointestinal: negative: Nausea, Vomiting, Abdominal Pain, Diarrhea, Constipation, Melena, Hematochezia, Other Genitourinary: negative: Dysuria, Frequency, Incontinence, Hematuria, Retention , Other Musculoskeletal: negative: Neck Pain, Shoulder Pain, Arm Pain, Back Pain, Hand Pain, Leg Pain, Foot Pain, Other Neurological: negative: Weakness, Numbness, Incoordination, Change in Speech, Confusion, Seizures, Other - Medications/Allergies Allergies/Adverse Reactions: Allergies Allergy/AdvReac Type Severity Reaction Status Date / Time Penicillins Allergy Verified 06/10/18 21:44 sulfamethoxazole Allergy Verified 06/10/18 21:44 [From Bactrim] trimethoprim [From Bactrim] Allergy Verified 06/10/18 21:44 Medications: Current Medications Acetaminophen (Tylenol) 650 mg PO Q4H PRN PRN Reason: Headache/Fever/Mild Pain (1-3) Last Admin: 07/02/18 07:11 Dose: 650 mg Hydrocodone Bitart/Acetaminophen ([place] 5/325) 1 tab PO Q4H PRN PRN Reason: Mild Pain (1-3) Last Admin: 06/25/18 13:44 Dose: 1 tab Hydrocodone Bitart/Acetaminophen ([place] 5/325) 2 tab PO Q4H PRN PRN Reason: Moderate Pain (4-6) Last Admin: 06/24/18 17:35 Dose: 2 tab Acetylcysteine (Mucomyst 10% (Oral Or Inh)) 600 mg PO BID-RT [facility] Last Admin: 07/02/18 06:04 Dose: 600 mg Albuterol/Ipratropium (Duoneb) 3 ml EZPAP [id number] [facility] Last Admin: 07/02/18 09:36 Dose: 3 ml Albuterol/Ipratropium (Duoneb) 3 ml NEB [id number] PRN PRN Reason: Wheezing Last Admin: 06/23/18 00:20 Dose: 3 ml Amlodipine Besylate (Norvasc) 5 mg PO DAILY [facility] Last Admin: 07/02/18 08:18 Dose: 5 mg Aspirin (Aspirin Chewable) 81 mg PO DAILY [facility] Last Admin: 07/02/18 08:17 Dose: 81 mg Atorvastatin Calcium (Lipitor) 40 mg PO HS [facility] Last Admin: 07/01/18 20:16 Dose: 40 mg Benzonatate (Tessalon) 100 mg PO Q12HR [facility] Last Admin: 07/02/18 08:17 Dose: 100 mg Carvedilol (Coreg) 6.25 mg PO BID-WM [facility] Last Admin: 07/02/18 08:18 Dose: 6.25 mg Clonidine (Catapres) 0.1 mg PO Q4H PRN PRN Reason: FOR SBP > 170mmHg Last Admin: 06/17/18 04:37 Dose: 0.1 mg Dextrose/Water (Dextrose 50%) 25 gm SLOW IVP PRN PRN PRN Reason: Hypoglycemia Famotidine (Pepcid) 20 mg PO DAILY [facility] Last Admin: 07/02/18 08:17 Dose: 20 mg Fenofibrate (Tricor) 145 mg PO DAILY [facility] Last Admin: 07/02/18 08:17 Dose: 145 mg Fluticasone Propionate (Flonase Nasal [place]) 0 gm NASAL BID PRN PRN Reason: Allergies Glucagon (Glucagon) 1 mg IM PRN PRN PRN Reason: Hypoglycemia Guaifenesin/Dextromethorphan (Mucinex Dm) 1 tab PO BID [facility] Last Admin: 07/02/18 08:18 Dose: 1 tab Guaifenesin/Dextromethorphan (Robitussin Dm) 15 ml PO Q4H PRN PRN Reason: Cough Dextrose/Water (D5w) 1,000 mls @ 0 mls/hr IV .Q0M PRN PRN Reason: Hypoglycemia Ceftriaxone Sodium 2 gm/ (Sodium Chloride) 100 mls @ 200 mls/hr IVPB 0100,1300 [facility] Last Admin: 07/02/18 00:32 Dose: 100 mls Insulin Human Regular (Humulin R) 0 units SC .MILD SLIDING SCALE PRN PRN Reason: Mild Correctional Scale Last Admin: 07/02/18 10:56 Dose: 2 units Levofloxacin (Levaquin) 500 mg PO 1500 [facility] Last Admin: 07/01/18 14:55 Dose: 500 mg Melatonin (Melatonin) 3 mg PO HS PRN PRN Reason: Insomnia Last Admin: 07/01/18 21:11 Dose: 3 mg Montelukast Sodium (Singulair) 10 mg PO HS [facility] Last Admin: 07/01/18 20:16 Dose: 10 mg Morphine Sulfate (Morphine) 2 mg SLOW IVP Q4H PRN PRN Reason: Moderate Pain (4-6) Nystatin (Mycostatin) 500,000 units SSW QID [facility] Last Admin: 07/02/18 08:17 Dose: 500,000 units Ondansetron HCl (Zofran) 4 mg IVP Q6H PRN PRN Reason: Nausea/Vomiting Pantoprazole Sodium (Protonix) 40 mg PO DAILY [facility] Last Admin: 07/02/18 08:18 Dose: 40 mg Polyethylene Glycol (Miralax) 17 gm PO DAILYPRN PRN PRN Reason: Constipation Last Admin: 07/01/18 14:57 Dose: 17 gm Sodium Chloride (Flush - Normal Saline) 10 ml IVF Q12HR [facility] Last Admin: 07/02/18 08:18 Dose: 10 ml Sodium Chloride (Flush - Normal Saline) 10 ml IVF PRN PRN PRN Reason: Saline Flush Last Admin: 06/20/18 04:20 Dose: 10 ml Throat Lozenges (Cepastat Lozenges) 1 keara PO Q2H PRN PRN Reason: Sore Throat Last Admin: 06/23/18 13:34 Dose: 1 keara
[2018-07-02] MEDS ORDERED: Potassium Chloride 20 MEQ TAB PO SCH (11:30)
[2018-07-02] MEDS ORDERED: Heparin 1,000 UNITS/ML VIAL ONE (17:39)
--- NOTE | 2018-07-02 17:44 | SPC ---
LEFT UPPER EXTREMITY PICC LINE PLACEMEN WITH ULTRASOUND GUIDANCE: Date: 07/02/18 HISTORY: Pneumonia. COMPARISON: None. EXPOSURE: 0.5 minutes. 2857 mGy*cm^2. FINDINGS: Technically successful left upper extremity PICC line placement with ultrasound guidance. Single lume n catheter with distal tip in the right atrium. Trim length is 45 cm. Single lumen catheter flushes a nd aspirates without difficulty. TECHNIQUE: Consent obtained to perform a left upper extremity PICC line placement with ultrasound guidance. Left arm was prepped and draped in the sterile fashion. 1% lidocaine, buffered with sodium bicarbonate, w as used for local anesthesia. Under [id number] guidance, micropuncture needle was used to cannulate the basilic vein. A 0.018 guidewire was advanced through the needle into the superior vena cava. Unde r fluoroscopy, the wire was advanced into the inferior vena cava to document venous access. Wire was subsequently pulled back to the right atrium. Tract was dilated. A single lumen 5 [place] catheter was advanced over the wire. Wire does flush and aspirate without difficulty. IMPRESSION: Successful left upper extremity PICC line placement with ultrasound guidance. POS: [facility]
[2018-07-02] MEDS: Atorvastatin Calcium 40 MG TAB PO SCH (20:06)
[2018-07-02] MEDS: Montelukast Sodium 10 mg Tablet PO SCH (20:06)
[2018-07-02] MEDS: Melatonin 3 MG TAB PO PRN (20:42)
[2018-07-03] MEDS: cefTRIAXone\\ROCEPHIN 2 GM in Sodium Chloride 0.9% 100 ML IVPB SCH ×2 (00:02→12:29)
[2018-07-03 06:56] LABS: Anion Gap 11 mmol/L (10-20); BUN (Urea Nitrogen) 9 mg/dL (9.8-20.1); Calc. Creatinine Clearance 164 mL/min (70-130); Calcium 8.2 mg/dL (7.8-10.44); Carbon Dioxide 30 mmol/L (23-31); Chloride 98 mmol/L (98-107); Estimated GFR-MDRD Greater than 90; Glucose 117 mg/dL (80-115); Sodium 135 mmol/L (136-145)
[2018-07-03] MEDS: Acetylcysteine 10% 100 MG/ML 30 ml Vial PO SCH (08:12)
[2018-07-03] MEDS: guaiFENesin/DM ER PO SCH (08:32)
[2018-07-03] MEDS: Famotidine 20 MG TAB PO SCH (08:32)
[2018-07-03] MEDS: Amlodipine 5 MG TAB PO SCH (08:32)
[2018-07-03] MEDS: Nystatin 500,000 UNITS/5 ML UDCUP SSW SCH ×2 (08:32→12:29)
[2018-07-03] MEDS: Carvedilol 6.25 MG TAB PO SCH (08:32)
[2018-07-03] MEDS: Benzonatate 100 MG CAP PO SCH (08:32)
[2018-07-03] MEDS: Fenofibrate Nanocrystallized 145 MG TAB PO SCH (08:32)
--- NOTE | 2018-07-03 11:07 | PRG ---
DATE OF SERVICE: 07/03/2018 SUBJECTIVE: Ms. Benitez is gradually getting better. She had no acute complaints today. OBJECTIVE: VITAL SIGNS: Temperature is 98.3, pulse 80, blood pressure 138/81, and O2 saturation 94% on 0.5 L. HEENT: Unremarkable. NECK: No JVD. LUNGS: She has diminished breath sounds in both bases. CARDIAC: S1 and S2, regular. ABDOMEN: Soft. EXTREMITIES: No edema. LABORATORY DATA: Sodium 135, potassium 4, BUN 9, creatinine 0.6, and glucose 117. ASSESSMENT: Status post bilateral empyemas from Haemophilus influenzae. PLAN: She is to receive antibiotics for 1 more month. She is set to go to a swing bed later today. Job ID: [id number]
[2018-07-03] MEDS: Insulin Regular 300 UNITS/3 ML VIAL SC PRN (11:45)
[2018-07-03 11:50] VITALS: BP 146/83; TEMP 98.4
--- NOTE | 2018-07-04 04:49 | DIS ---
DATE OF ADMISSION: 06/10/2018 DATE OF DISCHARGE: 07/03/2018 DISCHARGE DISPOSITION: [facility]. CONDITION AT THE TIME OF DISCHARGE: Stable and improved. DISCHARGE DIAGNOSES: 1. Bilateral empyema with Haemophilus influenzae bacteremia. 2. Sepsis secondary to number one. 3. Hyponatremia, resolved. 4. Acute hypoxic respiratory failure, resolved. 5. Acute kidney injury, resolved. DISCHARGE MEDICATIONS: Acetylcysteine 600 mg p.o. b.i.d., Lipitor 40 mg daily, amlodipine 5 mg daily, Coreg 6.25 b.i.d., DuoNeb p.r.n., Protonix 40 daily, Flonase nasal spray, azelastine nasal spray b.i.d. p.r.n., aspirin 81 mg daily, Rocephin 2 g b.i.d. for four more weeks via PICC line. Fenofibric acid 135 mg daily, Flonase daily b.i.d. p.r.n., Singulair 10 mg daily, metformin 1000 mg p.o. b.i.d. The patient has been taken off her olmesartan and hydrochlorothiazide. IN-HOUSE CONSULTATION: 1. Pulmonary Medicine, Dr. Mata. 2. Infectious Disease, Dr. Marmolejo. 3. Cardiology, Dr. Solis. 4. Nephrology, Dr. Gomez. 5. ENT, . PROCEDURES DONE IN THE HOSPITAL: 1. Chest CT with dissection protocol on 06/10/2018, which shows atherosclerosis of the aorta, cardiomegaly, fatty infiltration of the liver, colonic diverticulosis, umbilical hernia, and cholecystectomy changes. No dissection noticed. 2. Placement of a PICC line. 3. Multiple chest x-rays. 4. CT scan of the brain, 06/15/2018, which shows volume averaging versus possible ischemic insult involving the cerebellar vermis. 5. MRI of the brain on 06/17/2018, which shows no acute hemorrhage or infarction. 6. Left-sided thoracentesis for left empyema by Dr. Mata on 06/13/2018. 7. Left thoracoscopy with total pulmonary decortication by Dr. Clark on 06/13/2018. 8. Right-sided thoracentesis by Dr. Mata on 06/22/2018. 9. Right thoracoscopy with total pulmonary decortication and therapeutic bronchoscopy by Dr. Markus Clark on 06/22/2018. HISTORY OF PRESENTING ILLNESS: Ms. Benitez is a pleasant 63-year-old female with past medical history of hypertension and dyslipidemia as well as sleep apnea, on CPAP, presented to the emergency room with complaints of sore throat and left-sided chest pain. She had a CT scan of her neck done in outside ER, which showed some nonspecific retropharyngeal edema and phlegmon without any specific abscess. She was discharged from that ER visit on clindamycin but came back to our emergency room on the day of admission with worsening difficulty swallowing, left-sided chest pain, abdominal pain, and back pain. Upon presentation, she had leukocytosis with bandemia of 39%. CT scan of the chest was negative for PE and dissection. She was admitted with a presumptive diagnosis of sepsis secondary to possible retropharyngeal infection. She was started on empiric IV antibiotics and Infectious disease was consulted. Please see admission history and physical for further details. HOSPITAL COURSE: Day of after admission, the patient was transferred to ICU for metabolic acidosis and renal insufficiency and general decline. She had cultures growing out gram-negative rods, 07/14. Dr. Mata saw the patient and followed her along. There was concern for empyema. Antibiotics were adjusted. The patient was found to have bilateral empyema and underwent initially left and then right thoracocentesis with chest tube insertion by Dr. Clark and thoracotomy on both sides, one after the other, as above. Eventually, the chest tubes were removed and she was continued on IV antibiotic. Infectious Disease, Dr. Marmolejo saw the patient, recommended protracted course of IV antibiotics. She got a PICC line and she will continue the Rocephin for four more weeks. Rehab was arranged for the patient and she was accepted at [facility] today. She has been cleared for discharge from pulmonary standpoint as well. She was also seen by ENT, for complaints of retropharyngeal edema. He recommended continuation of antibiotics. She was seen by Cardiology, Dr. Solis shortly after admission for possible heart failure. She had echo done, which showed EF of 35% to 40%. Her fluid status was maintained on a day-to-day basis. Please see [employer] for day-to-day details as the patient has had a prolonged stay. Eventually, her cardiac status also improved. Her initial echo done on 06/11 showed EF of 40% to 45%, and a repeat echo done on 06/19/2018, showed EF of 60% to 65% with mild diastolic dysfunction. The patient was later seen by Dr. Ayala who eventually signed off on the patient when she had recovery of her cardiac symptoms. He signed off on her on 06/21/2018. Outpatient followup is recommended. As of this morning, the patient is feeling much better and will be discharged to rehab facility for continuation of IV antibiotics. Her cultures of 2/2 were positive for Haemophilus influenzae. Her throat culture was negative for group A Streptococcus in culture. Her pleural fluid remained negative till date of discharge. She was seen and examined prior to discharge and is feeling much better and is hemodynamically stable. PHYSICAL EXAMINATION: Vital Signs: This morning, temperature 98.4, pulse of 77, respirations 24, saturating 92% on 1/2 L nasal cannula, blood pressure 146/83. GENERAL: No acute distress. CHEST: Showed decreased breath sounds at bases without any significant wheezing. HEART: Rate, rhythm is regular. Total time spent in the discharge, 40 minutes. Job ID: [id number]
== END 2018-07-03 13:45 | disposition swing bed (61) | DRG 853 ==
LOC: ERS 13:41 → 2NO 16:29 → CCU 06-11 11:36 → 2NO 06-15 21:46 → T4-A 06-22 07:06 → CCU 06-22 14:26 → SURG A 06-23 09:52
PROVIDERS: ADMIT Internal Medicine; ATTEND Internal Medicine
PROC: 5A09357 Assistance with Respiratory Ventilation, Less than 24 Consecutive Hours, Continuous Positive Airway Pressure (ICD-10-PCS; 2018-06-11)
PROC: 0BNL4ZZ Release Left Lung, Percutaneous Endoscopic Approach (ICD-10-PCS; principal; 2018-06-13)
PROC: 0W9B3ZZ Drainage of Left Pleural Cavity, Percutaneous Approach (ICD-10-PCS; 2018-06-13)
PROC: 0W9B40Z Drainage of Left Pleural Cavity with Drainage Device, Percutaneous Endoscopic Approach (ICD-10-PCS; 2018-06-13)
PROC: 0W9B40Z Drainage of Left Pleural Cavity with Drainage Device, Percutaneous Endoscopic Approach (ICD-10-PCS; 2018-06-13)
PROC: 0BNK4ZZ Release Right Lung, Percutaneous Endoscopic Approach (ICD-10-PCS; 2018-06-22)
PROC: 0WCQ8ZZ Extirpation of Matter from Respiratory Tract, Via Natural or Artificial Opening Endoscopic (ICD-10-PCS; 2018-06-22)
PROC: 0W993ZZ Drainage of Right Pleural Cavity, Percutaneous Approach (ICD-10-PCS; 2018-06-22)
PROC: 0W9940Z Drainage of Right Pleural Cavity with Drainage Device, Percutaneous Endoscopic Approach (ICD-10-PCS; 2018-06-22)
PROC: 0W9940Z Drainage of Right Pleural Cavity with Drainage Device, Percutaneous Endoscopic Approach (ICD-10-PCS; 2018-06-22)
PROC: 02HV33Z Insertion of Infusion Device into Superior Vena Cava, Percutaneous Approach (ICD-10-PCS; 2018-07-02)
DX: A41.3 Sepsis due to Hemophilus influenzae (principal); J86.9 Pyothorax without fistula; J96.01 Acute respiratory failure with hypoxia; G93.41 Metabolic encephalopathy; N17.9 Acute kidney failure, unspecified; E87.1 Hypo-osmolality and hyponatremia; I42.9 Cardiomyopathy, unspecified; E87.2 Acidosis; N18.4 Chronic kidney disease, stage 4 (severe); I13.0 Hypertensive heart and chronic kidney disease with heart failure and stage 1 through stage 4 chronic kidney disease, or unspecified chronic kidney disease; I50.22 Chronic systolic (congestive) heart failure; E78.5 Hyperlipidemia, unspecified; E87.6 Hypokalemia; E66.01 Morbid (severe) obesity due to excess calories; J02.9 Acute pharyngitis, unspecified; G47.33 Obstructive sleep apnea (adult) (pediatric); Z68.38 Body mass index [BMI] 38.0-38.9, adult; Z88.0 Allergy status to penicillin; Z88.2 Allergy status to sulfonamides; Z79.82 Long term (current) use of aspirin; Z79.899 Other long term (current) drug therapy
CPT/HCPCS: 36415; 36416; 36430; 36569; 70450; 70491; 70551; 71045; 71046; 71260; 71275; 80048; 80053; 81003; 81015; 82150; 82550; 82805; 82945; 83615; 83690; 83880; 83986; 84157; 84443; 84478; 84484; 85025; 85060; 85610; 85652; 85730; 86140; 86850; 86900; 86901; 87040; 87070; 87077; 87081; 87116; 87149; 87205; 87206; 87430; 88112; 88305; 89051; 93005; 93306; 93798; 94002; 94003; 94640; 94660; 94760; 96361; 96374; 96375; 96376; C1751; J0131; J0670; J0696; J1100; J1250; J1642; J1644; J1650; J1815; J1885; J1940; J1956; J2001; J2060; J2185; J2250; J2270; J2405; J2704; J2920; J3010; J3370; J3490; J7050; J7506; J7608; J7620; P9016; S0028

== ENCOUNTER 2018-08-13 12:32 | Outpatient (CLI) | payer OTHER ==
--- NOTE | 2018-08-13 14:02 | RAD ---
CHEST TWO VIEWS: HISTORY: Empyema. COMPARISON: Chest CT from 07/01/2018. FINDINGS: There is a decrease in size, slightly. There is elevation of the left hemidiaphragm, with a small le ft effusion. No pneumothorax. The cardiac silhouette and mediastinal contours are similar. IMPRESSION: Similar appearance of bilateral effusions, with slight improvement in the right pleural effusion. POS: [facility]
== END 2018-08-13 12:33 | disposition home or self-care (01) ==
LOC: RAD 12:32
PROVIDERS: ATTEND Thoracic Surgery (Cardiothoracic Vascular Surgery)
DX: J86.9 Pyothorax without fistula (principal); J90 Pleural effusion, not elsewhere classified
CPT/HCPCS: 71046

== ENCOUNTER 2019-03-19 12:40 | Outpatient (CLI) | payer MEDICARE, OTHER ==
--- NOTE | 2019-03-19 13:02 | RAD ---
EXAM: Two views chest PROVIDED CLINICAL HISTORY: Dyspnea. COMPARISON: 08/13/2018. FINDINGS: Cardiac silhouette and pulmonary vasculature are within normal limits. There is persistent elevation of the left hemidiaphragm with mild pleural and parenchymal scarring at the left lung base. There is also slight blunting of the right lateral costophrenic angle unchanged from prior study and also l ikely attributable to pleural and parenchymal scarring. Minimal linear atelectasis is again seen at the lateral aspect right midlung zone. Lungs otherwise appear clear. There has been no significant in terval change when compared to the prior exam. Vascular calcifications are again seen in thoracic aorta. Surgical clips overlie the right upper quadrant. IMPRESSION: Mild chronic bibasilar lung changes without evidence of an acute cardiopulmonary process..
== END 2019-03-19 12:41 | disposition home or self-care (01) ==
LOC: RAD 12:40
PROVIDERS: ATTEND Internal Medicine Critical Care Medicine
DX: R06.00 Dyspnea, unspecified (principal)
CPT/HCPCS: 71046

== ENCOUNTER 2020-04-08 12:40 | Outpatient (CLI) | payer OTHER ==
--- NOTE | 2020-04-08 13:04 | RAD ---
EXAM: Two views chest PROVIDED CLINICAL HISTORY: Dyspnea. COMPARISON: 03/19/2019. FINDINGS: Cardiac silhouette is at the upper limits of normal in size. The pulmonary vasculature is within norm al limits. Again noted is elevation left hemidiaphragm with gaseous distention of the stomach. There is atelectasis present at the left lung base. Lungs are otherwise clear. Degenerative changes a re again seen in the spine. IMPRESSION: 1. No acute cardiopulmonary process. 2. Stable elevation left hemidiaphragm with atelectasis left lung base. 3. Prominent gaseous distention of the stomach.
== END 2020-04-08 12:41 | disposition home or self-care (01) ==
LOC: BICRAD 12:40
PROVIDERS: ATTEND Internal Medicine Critical Care Medicine
DX: R06.00 Dyspnea, unspecified (principal); Q79.1 Other congenital malformations of diaphragm; J98.11 Atelectasis; K31.89 Other diseases of stomach and duodenum
CPT/HCPCS: 71046

== ENCOUNTER 2020-06-23 10:21 | Outpatient (CLI) | payer MEDICARE, OTHER ==
--- NOTE | 2020-06-23 11:22 | RAD ---
Exam: Sniff test with fluoroscopy HISTORY: Evaluate for left diaphragm paralysis. EXPOSURE: 11.976 souza/cm2; 0.5 minutes. FINDINGS: There is decreased motion of the left hemidiaphragm with respect to the contralateral side. There is appropriate movement of the right hemidiaphragm. IMPRESSION: Decreased movement of the left hemidiaphragm, consistent with left diaphragmatic paralysi s. Transcribed Date/Time: 06/23/2020 11:53 AM
== END 2020-06-23 10:22 | disposition home or self-care (01) ==
LOC: RAD 10:21
PROVIDERS: ATTEND Internal Medicine Critical Care Medicine
DX: J98.6 Disorders of diaphragm (principal)
CPT/HCPCS: 76000

== ENCOUNTER 2023-01-30 13:32 | Observation (INO) | payer MEDICARE, OTHER ==
[2023-01-30] MEDS ORDERED: Aspirin Chewable 81 MG TAB ONE (14:04)
[2023-01-30 15:16] LABS: #Eosinphils 0.1 thou/uL (0.0-0.7); #Monocytes 0.6 thou/uL (0.11-0.59); #Neutrophils 4.2 thou/uL (1.40-6.50); %Basophils 0.1 % (0.0-1.0); %Lymphocytes 28.6 % (21.0-51.0); %Monocytes 8.6 % (0.0-10.0); %Neutrophils 61.4 % (42.0-75.0); Hemoglobin 13.7 g/dL (12.0-16.0); Mean Corpuscular HGB CONC 31.9 g/dL (32.0-36.0); Mean Corpuscular Hemoglobin 27.2 pg (27.0-31.0); Mean Corpuscular Volume 85.3 fl (78.0-98.0); Mean Platelet Volume 12.1 fL (7.4-10.4); Platelet Count 220 10x3/uL (130-400); RBC Distribution Width 13.8 % (11.5-14.5); Red Blood Cell (RBC) Count 5.04 mill/uL (4.20-5.40); White Blood Cell (WBC) Count 6.9 10x3/uL (4.8-10.8)
[2023-01-30 15:40] LABS: Troponin I Less than 0.010 ng/mL (< 0.028)
[2023-01-30 15:40] LABS: ALT (SGPT) 18 U/L (8-55); AST (SGOT) 22 U/L (5-34); Albumin 4.1 g/dL (3.4-4.8); Alkaline Phosphatase 38 U/L (40-110); Anion Gap 12 mmol/L (10-20); BUN (Urea Nitrogen) 21 mg/dL (9.8-20.1); Bilirubin, Total 0.7 mg/dL (0.2-1.2); Calc. Creatinine Clearance 0 mL/min (70-130); Calcium 9.9 mg/dL (7.8-10.44); Carbon Dioxide 30 mmol/L (23-31); Chloride 100 mmol/L (98-107); Estimated GFR 63; Globulin 2.6 g/dL (2.4-3.5); Glucose 129 mg/dL (80-115); Lipase 20 U/L (8-78); Potassium 3.7 mmol/L (3.5-5.1); Protein, Total 6.7 g/dL (5.8-8.1); Sodium 138 mmol/L (136-145)
[2023-01-30 18:18] LABS: Troponin I Less than 0.010 ng/mL (< 0.028)
[2023-01-30 18:31] VITALS: BMI 35.8
[2023-01-30] MEDS ORDERED: Acetaminophen 325 MG TAB PO PRN (18:58)
[2023-01-30] MEDS ORDERED: Ondansetron ODT 4 MG TAB PO PRN (18:58)
[2023-01-30] MEDS ORDERED: Glucagon 1 MG/ML KIT IM PRN (18:58)
[2023-01-30] MEDS ORDERED: Dextrose 50% Abboject 50 ML SYRINGE SLOW IVP PRN (18:58)
[2023-01-30] MEDS ORDERED: Ondansetron PF 4 MG/2 ML Vial IVP PRN (18:58)
[2023-01-30] MEDS ORDERED: Nitroglycerin 0.4 MG TAB (25 Tab Bottle) SL PRN (18:58)
[2023-01-30] MEDS ORDERED: HumaLOG 300 UNITS/3 ML VIAL SC PRN ×2 (18:58)
[2023-01-30] MEDS ORDERED: Dextrose 5% in Water 1,000 ML IV PRN (18:58)
[2023-01-30] MEDS ORDERED: Acetaminophen 650 MG Suppository PR PRN (18:58)
[2023-01-30 19:51] LABS: #Eosinphils 0.1 thou/uL (0.0-0.7); #Monocytes 0.6 thou/uL (0.11-0.59); #Neutrophils 3.6 thou/uL (1.40-6.50); %Basophils 0.3 % (0.0-1.0); %Eosinophils 0.9 % (0.0-10.0); %Lymphocytes 34.6 % (21.0-51.0); %Monocytes 9.2 % (0.0-10.0); %Neutrophils 54.7 % (42.0-75.0); Hematocrit 42.5 % (36.0-47.0); Hemoglobin 13.7 g/dL (12.0-16.0); Mean Corpuscular HGB CONC 32.2 g/dL (32.0-36.0); Mean Corpuscular Hemoglobin 27.2 pg (27.0-31.0); Mean Corpuscular Volume 84.5 fl (78.0-98.0); Mean Platelet Volume 11.7 fL (7.4-10.4); Platelet Count 230 10x3/uL (130-400); RBC Distribution Width 13.7 % (11.5-14.5); Red Blood Cell (RBC) Count 5.03 mill/uL (4.20-5.40); White Blood Cell (WBC) Count 6.7 10x3/uL (4.8-10.8)
[2023-01-30 20:14] LABS: Anion Gap 12 mmol/L (10-20); BUN (Urea Nitrogen) 18 mg/dL (9.8-20.1); Calc. Creatinine Clearance 97 mL/min (70-130); Calcium 9.7 mg/dL (7.8-10.44); Carbon Dioxide 26 mmol/L (23-31); Chloride 104 mmol/L (98-107); Estimated GFR 73; Glucose 105 mg/dL (80-115); Potassium 3.5 mmol/L (3.5-5.1); Sodium 138 mmol/L (136-145)
[2023-01-30 20:52] LABS: Troponin I Less than 0.010 ng/mL (< 0.028)
[2023-01-30] MEDS ORDERED: Atorvastatin Calcium 10 MG TAB PO SCH (21:00)
[2023-01-31 08:14] VITALS: BP 155/74; TEMP 97.9
[2023-01-31] MEDS ORDERED: Losartan 25 MG TAB PO SCH (09:00)
[2023-01-31] MEDS ORDERED: Aspirin Chewable 81 MG TAB PO SCH (09:00)
== END 2023-01-31 11:00 | disposition home or self-care (01) ==
LOC: ERS 13:32 → ERHOLD 17:36 → 2SW 22:32
PROVIDERS: ADMIT Family Medicine; ATTEND Internal Medicine
DX: I11.0 Hypertensive heart disease with heart failure (principal); I50.1 Left ventricular failure, unspecified; E78.5 Hyperlipidemia, unspecified; E11.9 Type 2 diabetes mellitus without complications; G47.33 Obstructive sleep apnea (adult) (pediatric); I44.7 Left bundle-branch block, unspecified; K21.9 Gastro-esophageal reflux disease without esophagitis; I42.8 Other cardiomyopathies; Z88.0 Allergy status to penicillin; Z88.2 Allergy status to sulfonamides; Z79.82 Long term (current) use of aspirin; Z79.899 Other long term (current) drug therapy; Z90.49 Acquired absence of other specified parts of digestive tract; Z90.89 Acquired absence of other organs; Z77.22 Contact with and (suspected) exposure to environmental tobacco smoke (acute) (chronic)
CPT/HCPCS: 36415; 36416; 71045; 80053; 83690; 83880; 84484; 85025; 85379; 93005; 96372; G0378; J1650

== ENCOUNTER 2023-12-13 13:25 | Inpatient (IN) | payer MEDICARE, OTHER ==
[2023-12-13 13:51] LABS: #Basophils Less than 0.03 10x3/uL (0.0-0.2); %Basophils 0.2 % (0.0-1.0); %Eosinophils 1.6 % (0.0-10.0); %Lymphocytes 25.2 % (21.0-51.0); %Monocytes 9.9 % (0.0-10.0); %Neutrophils 62.2 % (42.0-75.0); Hematocrit 43.9 % (36.0-47.0); Hemoglobin 14.3 g/dL (12.0-16.0); Mean Corpuscular HGB CONC 32.6 g/dL (32.0-36.0); Mean Corpuscular Hemoglobin 28.3 pg (27.0-31.0); Mean Corpuscular Volume 86.8 fL (78.0-98.0); Mean Platelet Volume 11.8 fL (7.4-10.4); Platelet Count 231 10x3/uL (130-400); RBC Distribution Width 13.4 % (11.5-14.5); Red Blood Cell (RBC) Count 5.06 mill/uL (4.20-5.40)
[2023-12-13 14:10] LABS: ALT (SGPT) 17 U/L (8-55); AST (SGOT) 26 U/L (5-34); Albumin 3.7 g/dL (3.4-4.8); Alkaline Phosphatase 45 U/L (40-110); Anion Gap 16 mmol/L (10-20); BUN (Urea Nitrogen) 31 mg/dL (9.8-20.1); Bilirubin, Total 0.5 mg/dL (0.2-1.2); Calc. Creatinine Clearance 0 mL/min (70-130); Calcium 9.9 mg/dL (7.8-10.44); Carbon Dioxide 23 mmol/L (23-31); Chloride 103 mmol/L (98-107); Estimated GFR 50; Globulin 3.4 g/dL (2.4-3.5); Glucose 111 mg/dL (80-115); Potassium 3.8 mmol/L (3.5-5.1); Protein, Total 7.1 g/dL (5.8-8.1); Sodium 138 mmol/L (136-145)
[2023-12-13] MEDS ORDERED: Enoxaparin 100 MG (1 mL) SYRINGE ONE (15:59)
[2023-12-13 17:21] LABS: PTT 29.5 sec (22.9-36.1); Prothrombin Time 13.5 sec (12.0-14.7)
[2023-12-13 20:35] VITALS: BMI 35.3
[2023-12-13] MEDS: Atorvastatin Calcium 10 MG TAB PO SCH (20:55)
[2023-12-14] MEDS: Apixaban 5 MG TAB PO SCH ×2 (01:05→09:21)
[2023-12-14 04:36] LABS: #Basophils Less than 0.03 10x3/uL (0.0-0.2); %Basophils 0.3 % (0.0-1.0); %Eosinophils 2.4 % (0.0-10.0); %Lymphocytes 34.7 % (21.0-51.0); %Monocytes 8.9 % (0.0-10.0); Hematocrit 40.2 % (36.0-47.0); Mean Corpuscular HGB CONC 32.3 g/dL (32.0-36.0); Mean Corpuscular Hemoglobin 28.5 pg (27.0-31.0); Mean Corpuscular Volume 88.2 fL (78.0-98.0); Mean Platelet Volume 11.4 fL (7.4-10.4); Platelet Count 216 10x3/uL (130-400); RBC Distribution Width 13.3 % (11.5-14.5); Red Blood Cell (RBC) Count 4.56 mill/uL (4.20-5.40)
[2023-12-14 04:55] LABS: Anion Gap 15 mmol/L (10-20); BUN (Urea Nitrogen) 26 mg/dL (9.8-20.1); Calc. Creatinine Clearance 64 mL/min (70-130); Calcium 9.3 mg/dL (7.8-10.44); Carbon Dioxide 26 mmol/L (23-31); Chloride 103 mmol/L (98-107); Estimated GFR 46; Glucose 153 mg/dL (80-115); Potassium 3.4 mmol/L (3.5-5.1); Sodium 141 mmol/L (136-145)
[2023-12-14] MEDS: Mag-Al 1200 mg/1200 mg/30 ML UDCUP PO SCH (06:40)
[2023-12-14] MEDS ORDERED: Aspirin 81 mg Enteric Coated Tablet PO SCH (09:00)
[2023-12-14] MEDS: Fenofibrate Nanocrystallized 145 MG TAB PO SCH (09:21)
[2023-12-14] MEDS: Aspirin Chewable 81 MG TAB PO SCH (09:21)
[2023-12-14] MEDS: Famotidine 20 MG TAB PO SCH (09:21)
[2023-12-14] MEDS: Losartan 25 MG TAB PO SCH (09:21)
[2023-12-14] MEDS ORDERED: Albuterol 1.25 MG (3 mL) NEB NEB PRN (13:11)
[2023-12-14] MEDS: Acetaminophen 325 MG TAB PO PRN (21:37)
[2023-12-15 07:04] LABS: #Basophils 0.03 10x3/uL (0.0-0.2); %Basophils 0.4 % (0.0-1.0); %Eosinophils 2.9 % (0.0-10.0); %Lymphocytes 32.1 % (21.0-51.0); %Monocytes 8.9 % (0.0-10.0); %Neutrophils 55.2 % (42.0-75.0); Hemoglobin 13.7 g/dL (12.0-16.0); Mean Corpuscular HGB CONC 32.6 g/dL (32.0-36.0); Mean Corpuscular Hemoglobin 28.7 pg (27.0-31.0); Mean Corpuscular Volume 88.1 fL (78.0-98.0); Mean Platelet Volume 11.7 fL (7.4-10.4); Platelet Count 228 10x3/uL (130-400); RBC Distribution Width 13.2 % (11.5-14.5); Red Blood Cell (RBC) Count 4.77 mill/uL (4.20-5.40)
[2023-12-15 07:23] LABS: Anion Gap 15 mmol/L (10-20); BUN (Urea Nitrogen) 22 mg/dL (9.8-20.1); Calc. Creatinine Clearance 88 mL/min (70-130); Calcium 9.9 mg/dL (7.8-10.44); Carbon Dioxide 27 mmol/L (23-31); Chloride 105 mmol/L (98-107); Estimated GFR 67; Glucose 132 mg/dL (80-115); Potassium 3.8 mmol/L (3.5-5.1); Sodium 143 mmol/L (136-145)
[2023-12-15 09:39] VITALS: BP 126/58; TEMP 97.2
== END 2023-12-15 12:00 | disposition home or self-care (01) | DRG 301 ==
LOC: ERS 13:25 → ERHOLD 15:49 → 2NO 20:20 → OBSVTOIN 12-14 09:20
PROVIDERS: ADMIT Hospitalist; ATTEND Internal Medicine
DX: T81.718A Complication of other artery following a procedure, not elsewhere classified, initial encounter (principal); I26.99 Other pulmonary embolism without acute cor pulmonale; I10 Essential (primary) hypertension; E11.9 Type 2 diabetes mellitus without complications; E78.5 Hyperlipidemia, unspecified; Z96.653 Presence of artificial knee joint, bilateral; Y83.8 Other surgical procedures as the cause of abnormal reaction of the patient, or of later complication, without mention of misadventure at the time of the procedure; Z79.899 Other long term (current) drug therapy; Z88.0 Allergy status to penicillin; Z88.2 Allergy status to sulfonamides; Z79.82 Long term (current) use of aspirin; Z79.51 Long term (current) use of inhaled steroids
CPT/HCPCS: 36415; 36416; 71045; 71275; 80048; 80053; 83880; 84484; 85025; 85610; 85730; 93005; 96372; J1650